=== PATIENT | male | born 1945 | race Caucasian/White ===

== ENCOUNTER 2017-11-05 12:37 | Outpatient (CLI) | payer MEDICARE, OTHER ==
--- NOTE | 2017-11-05 14:20 | XRAY Report ---
DATE OF SERVICE: 11/05/2017 TWO VIEW CHEST: 11/05/2017 CLINICAL INDICATION: Chronic cough. COMPARISON: 04/02/2013. FINDINGS: Frontal and lateral views of the chest demonstrate a normal cardiac silhouette. The lungs are hyperinflated, compatible with COPD. No focal consolidation, effusion, or pneumothorax is present. IMPRESSION: STABLE COPD. NO EVIDENCE OF ACUTE CARDIOPULMONARY DISEASE. TD: 11/05/2017 15:19
== END 2017-11-05 12:38 | disposition home or self-care (01) ==
LOC: DI 12:37
PROVIDERS: ATTEND Family Medicine
DX: J44.9 Chronic obstructive pulmonary disease, unspecified (principal)
CPT/HCPCS: 71046

== ENCOUNTER 2018-02-09 18:05 | Outpatient (CLI) | payer MEDICARE, OTHER | END 2018-02-09 18:06 | disposition short-term general hospital (02) | LOC: EMS 18:05 | PROVIDERS: ATTEND Surgery | DX: R53.1 Weakness (principal); R29.6 Repeated falls | CPT/HCPCS: A0425; A0429; A0888 ==

== ENCOUNTER 2018-02-10 00:23 | Inpatient (IN) | payer MEDICARE, OTHER ==
[2018-02-10] MEDS ORDERED: ACETAMINOPHEN 325 MG TABLET PO PRN (05:35)
[2018-02-10] MEDS ORDERED: ONDANSETRON 4 MG/2 ML VIAL IVP PRN (05:35)
[2018-02-10] MEDS ORDERED: ZOLPIDEM 5 MG TABLET PO PRN (05:35)
[2018-02-10] MEDS ORDERED: SODIUM CHLORIDE FLUSH 0.9% 10 ML SYRINGE IVP PRN (05:35)
[2018-02-10] MEDS: LACTATED RINGERS 1,000 ML IV SCH ×2 (06:16→13:23)
--- NOTE | 2018-02-10 07:23 | HISTORY & PHYSICAL EXAMINATION ---
DATE OF SERVICE: 02/10/2018 Physician: Jaylyn Fontana MD CHIEF COMPLAINT: Dehydration. SOURCE OF HISTORY: Per ER record, available medical records and interviewing patient. HISTORY OF PRESENT ILLNESS: Patient is a 72-year-old, white male who could not provide much history when I interviewed him. He seemed to be knowledgeable about past events or particular issues, but overall he was a poor historian and did not remember much regarding recent events. In particular, he told me that the date was January 2016. His age, he mentioned was 71 years old, instead of 72. He could not tell me about his daily routine such as a simple question, what was his last meal or when does he go to bed. In any case, as much as he reported, his takes care of him, although he was not sure why the needs to give him assistance. The left home several days ago to visit her family members and, during this time, neighbors were checking on patient. Per the ER provider, Dr. Selin Pizano' s report, neighbors called the ambulance and patient was taken to [facility] after he was found down in his home, being on the floor for a prolonged period of time. No further history was available. Patient himself told me that he got "dehydrated." He could not tell me why he did not drink or did not eat. He did not remember suffering any falls or injuries; however, he had multiple bruises. On admission, he appeared pleasantly confused. There were some issues such as history of leukemia, which he could have a reasonable conversation about, and he also knew the name of his primary care physician. He seemed to be remembering past events more than recent history. Upon presentation to [facility] ER, patient was found with stable vital signs, slightly tachycardic with heart rate between 90 and 100, blood pressure was 130/70, temperature 98 Fahrenheit, respiratory rate 20, oxygen saturation 98% on room air. ER workup included CT scan of the brain, which was negative; x-rays of chest and pelvis, which did not show a fracture or acute abnormality. EKG showed sinus rhythm. Laboratory showed rhabdomyolysis with creatine kinase of 6300. Acute kidney injury with BUN of 24, creatinine 1.5, potassium was 5.3, sodium was 139. White blood cell count was 15. Notably, patient has history of CLL and this is actually lower than his baseline. [facility] did not have bed availability. Therefore, patient was transferred to our hospital. PAST MEDICAL HISTORY 1. History of CLL, diagnosed in 2003. Since then stable, [facility]. 2. History of prostate cancer, followed by the oncologist, Dr. Greene, on Casodex, status post prostate seed implant. 3. Depression/anxiety. 4. History of melanoma, status post excision. 5. Cataracts. OUTPATIENT MEDICATIONS: Included vitamin supplements, Casodex and Xanax. Please note that patient is getting admitted overnight and medication reconciliation is not yet available. FAMILY HISTORY: Patient reports his father of a motor vehicle accident. His mother had hip fracture and never recovered. SOCIAL HISTORY: Patient does not smoke, quit a few years ago. 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 He is a nonsmoker. In previous medical record, it is documented that he drinks a glass of wine nightly. Patient reports ambulating without assistive device. Primary care physician is Dr. Manjit Hampton. ER workup reviewed per [facility] record. REVIEW OF SYMPTOMS: Please see pertinent positives listed above at history of present illness. Patient himself denied all complaints. In particular, he did not report nausea , vomiting, diarrhea, fever, or abdominal pain. He was forgetful. I completed a 12-point review. There was no complaint. PHYSICAL EXAMINATION VITAL SIGNS: Please see listed above at history of present illness. GENERAL: Patient is a well-developed, elderly male, who was not in distress. MUSCULOSKELETAL: Bruises on the right knee and on the left shoulder, also on the left elbow. SKIN: No jaundice. No pallor. Dry skin. LYMPHATIC: No lymphedema. CARDIOVASCULAR: S1, S2. Regular. No pathologic murmur. RESPIRATORY: Clear to auscultation without wheezes or crackles. NEUROLOGIC: Patient was alert, appeared slightly confused, had ataxia on the upper extremities. Face was symmetric. Tongue protruded to the midline. Patient moved all 4 extremities. There was no obvious sensory or motor deficit. PSYCHIATRIC: Cooperative. No agitation or lethargy. ABDOMEN: Soft, benign, nontender. Bowel tones active. ASSESSMENT AND PLAN 1. Encephalopathy, could be acute in the setting of metabolic abnormality such as dehydration versus patient could have underlying dementia. CT scan of the brain ruled out cerebrovascular accident. When patient arrived, I added urinalysis and toxicology screen, which studies are pending. 2. Rhabdomyolysis, found down. Patient likely suffered fall and could not get up from the floor. Not much history available. For this problem, he is getting IV hydration. We will check laboratories and provide supportive care. 3. Acute kidney injury with mild hyperkalemia and hyponatremia. This is in the setting of low oral intake, dehydration. Patient likely stayed down on the floor for a prolonged period of time. 4. Leukocytosis with history of CLL. White blood cell count around the baseline. 5. History of prostate cancer, on Casodex. PLAN AND ORDERS 1. Patient is getting admitted as an inpatient. I expect at least 2 days' hospital stay. During the daytime, we will try to get more information regarding this patient' s baseline from his . I am not sure how much alcohol he drinks, whether he could have any trouble with withdrawing from alcohol. It is notable that he takes benzodiazepine; therefore , if he misused or mismanaged his medication, then he could also develop benzodiazepine withdrawal or overdose. If he has dementia, then without his being home, he likely did not function well and that could also be the reason for this patient's presentation. In any case, regarding his baseline, we will get more information from his . Will continue supportive care, DVT prophylaxis, IV hydration, monitoring laboratories. I will order telemetry to make sure there was no cardiac arrhythmia. Physical therapy, occupational therapy evaluation. 2. Awaiting medication reconciliation. 3. Additional workup ordered, which included urinalysis, toxicology screen. Notably, troponin was checked. Prior to transfer, it was 0.02. EKG was normal; therefore, acute cardiac event can be ruled out. 4. CODE STATUS: I cannot determine code status as patient is not able to discuss. ATTESTATION: I certify that this patient will need to be hospitalized for more than 2 days, given his acute medical problems, which include encephalopathy and rhabdomyolysis. The expectation is that he stays hospitalized for about 48 hours and he gets discharged or transferred to another facility within 96 hours. TD: 02/10/2018 07:22 URPA
[2018-02-10] MEDS: POLYETHYLENE GLYCOL 3350 17 GM PACKET PO SCH (07:28)
[2018-02-10] MEDS: SODIUM CHLORIDE FLUSH 0.9% 10 ML SYRINGE IVP SCH ×2 (07:28→16:17)
--- NOTE | 2018-02-10 07:58 | PROVIDER PROGRESS NOTE ---
Subjective - Prog Note Date Prog Note Date: 02/10/18 Prog Note Time: 07:57 - Subjective Pt reports feeling: No change Subjective: The patient has no complaints of body aches, headaches, dizziness, chest pain, N /V or a new cough. He states that he has very low energy, feels tired, and has no appetite. He cannot recall the last time that he urinated. Current Medications - Current Medications Current Medications: Active Medications Acetaminophen (Tylenol) 650 mg PO Q4HR PRN PRN Reason: Pain 1 to 4 Enoxaparin Sodium (Lovenox) 40 mg SUBQ DAILY [facility] Sodium Chloride (Normal Saline 0.9%) 1,000 mls @ 200 mls/hr IV .Q5H SHAYNE Ceftriaxone Sodium 1 gm/ (Sodium Chloride) 100 mls @ 200 mls/hr IV DAILY [facility] Lidocaine HCl (Xylocaine Uro-Jet 2%) 2.5 ml UR Q2H PRN PRN Reason: PAIN Metoprolol Tartrate (Lopressor) 25 mg PO BID [facility] Ondansetron HCl (Zofran Inj) 4 mg IVP Q6HR PRN PRN Reason: Nausea / Vomiting Polyethylene Glycol (Miralax) 17 gm PO DAILY [facility] Last Admin: 02/10/18 07:28 Dose: Not Given Sodium Chloride (Normal Saline Flush 0.9%) 10 ml IVP PRN PRN PRN Reason: NEEDED PER PROVIDER ORDERS Last Admin: 02/10/18 06:17 Dose: 10 ml Sodium Chloride (Normal Saline Flush 0.9%) 10 ml IVP 0100,0900,1700 [facility] Last Admin: 02/10/18 07:28 Dose: Not Given Zolpidem Tartrate (Ambien) 5 mg PO QPM PRN PRN Reason: Insomnia ALPRAZolam [Alprazolam] 0.5 mg PO BID PRN 02/10/18 Citalopram Hydrobromide [Citalopram HBr] 20 mg PO DAILY 02/10/18 Losartan Potassium [Losartan Potassium] 50 mg PO DAILY 02/10/18 Objective - Vital Signs/Intake & Output Reviewed Vital Signs: Yes Vital Signs: Vital Signs x48h Temp Pulse Resp BP Pulse Ox 02/10/18 06:22 36.4 C L 91 20 155/74 H 99 Intake & Output: Intake & Output 02/07/18 02/08/18 02/09/18 02/10/18 23:59 23:59 23:59 23:59 Intake Total 83.333 Output Total 100 Balance -16.667 - Objective General Appearance: positive: Alert, Moderate distress Eyes Bilateral: positive: Normal inspection Eyes: OU Scleral icterus ENT: positive: ENT inspection nml, Pharyngeal erythema, Dry mucous membranes Neck: positive: Nml inspection, No JVD, Trachea midline, Stiff neck Respiratory: positive: Chest non-tender, Wheezes, Rhonchi Cardiovascular: positive: Regular rate & rhythm, Tachycardia, Systolic murmur, Decreased pulse(s) Peripheral Pulses: 1+ Radial (R), 1+ Radial (L) Abdomen: positive: Non-tender, Nml bowel sounds, Other (rounded, soft) Back: positive: Nml inspection Skin: positive: No rash, Warm, Dry, Diaphoresis, Pallor Extremities: positive: Non-tender, Pedal edema, Joint swelling, Other (weakness , reflexes are reduced.) Neurologic/Psychiatric: positive: Disoriented to place, Disoriented to time, Weakness, Sensory loss, Slurred/abnml speech, Depressed mood/affect Reflexes: Bicep (R): 1+, Bicep (L): 1+ - Lab Results Fish Bones: 02/12/18 04:45 02/12/18 04:45 Other Labs: Lab Results x24hrs 02/10/18 Range/Units 05:32 Total Creatine Kinase 3171 H* (22-269) IU/L - Diagnostic Imaging Diagnostic Imaging Results: positive: Prelim report reviewed, Final report reviewed ABX Reporting Has patient been on IV antibiotics over the past 48 hours?: No Assessment/Plan - Problem List (1) Altered mental status, unspecified Impression: The patient speaks in a sluggish manner and has trouble with the exact course of events leading to this admission. His remote and intermediate memory are intact. He has an unknown ETOH history, but is seen with moderate tremors. The patient is being treated for an elevated CK, so AMS may be expected. Plan: Continue to monitor. Qualifiers: Altered mental status type: transient alteration of awareness Qualified Code(s): R40.4 - Transient alteration of awareness (2) Rhabdomyolysis Impression: The patient was noted to have an elevated CK at the Located within [facility] around ~ 6300. Soon after admission to our hospital, it was already reduced to 3000. He has gotten LR IV fluids, that were changed to normal saline based on labs. Plan: Monitor labs, CK and kidney function. Insert mattson for accurate I/O, and monitor VS, mental status changes. Qualifiers: Encounter type: initial encounter (3) ANNETTA (acute kidney injury) Impression: The patient has an unknown baseline creatinine, but upon admission to [place], it was elevated at 1.5. Upon admission to this hospital, this was improved at 1.3. Plan: Insert indwelling mattson to monitor accurate I/O, monitor labs and treat rhabdomyolsis. (4) CLL (chronic lymphocytic leukemia) Impression: The patient has a long history of CLL and is monitored by his PCP. It is considered to be in remission. He has a chronically elevated WBC count. Upon admission the count is ~17,000, Plan: Continue to monitor. (5) Aortic stenosis, mild Impression: per preliminary echocardiogram report, the patient has AO. The patient denies a prior knowledge of this. A faint/distant heart murmur can be appreciated upon exam. The patient needs to have a controlled heart rate due to this finding, so metoprolol PO BID-immediate acting was started today. Plan: Keep heart rate controlled with beta [place], monitor on telemetry x 24 more hours.
[2018-02-10 08:06] LABS: MUDS CUTOFF CONCENTRATIONS CUTOFF CONC BELOW:
[2018-02-10 08:13] LABS: GLUCOSE, URINE (UA) NEGATIVE (NEGATIVE); KETONES,URINE (UA) 40 mg/dL (NEGATIVE); LEUKOCYTE ESTERASE, URINE NEGATIVE (NEGATIVE); NITRITE,URINE POSITIVE (NEGATIVE); OCCULT BLOOD,URINE MODERATE (NEGATIVE); PH,URINE 5.5 PH (5.0-7.5); PROTEIN,URINE 30 mg/dL (NEGATIVE); UROBILINOGEN,URINE 0.2 (NORMAL) E.U./dL (NORMAL)
[2018-02-10 08:21] LABS: BILIRUBIN,URINE NEGATIVE (NEGATIVE); CLARITY,URINE CLOUDY (CLEAR); ICTOTEST,URINE NEGATIVE
[2018-02-10 08:22] LABS: BACTERIA,URINE Many /HPF (None Seen); RBC,URINE 0-5 /HPF (0-5); SQUAMOUS EPITHELIAL CELL,UR FEW Squamous (<= Few)
[2018-02-10 08:24] LABS: AMPHETAMINE SCREEN,URINE NEGATIVE (NEGATIVE); BENZODIAZEPINES SCREEN, URINE POSITIVE (NEGATIVE); COCAINE SCREEN URINE NEGATIVE (NEGATIVE); METHADONE SCREEN, URINE NEGATIVE (NEGATIVE); METHAMPHETAMINES SCREEN, URINE NEGATIVE (NEGATIVE); OPIATE SCREEN, URINE NEGATIVE (NEGATIVE); OXYCODONE SCREEN, URINE NEGATIVE (NEGATIVE); PROPOXYPHENE SCREEN, URINE NEGATIVE (NEGATIVE); TRICYCLIC ANTIDEPRESSANT,URINE NEGATIVE (NEGATIVE)
[2018-02-10 08:25] LABS: BASOPHILS % (AUTO) 0.4 %; EOSINOPHILS % (AUTO) 0.1 %; HGB - HEMOGLOBIN 12.7 g/dL (14.0-18.0); LYMPHOCYTES # (AUTO) 5.8 10^3/uL (1.5-3.5); LYMPHOCYTES % (AUTO) 49.1 %; MEAN CORPUSCULAR HEMOGLOBIN 37.4 pg (27.0-31.0); MEAN CORPUSCULAR HGB CONC 33.9 g/dL (32.0-36.0); MEAN CORPUSCULAR VOLUME 110.3 fL (80.0-94.0); MEAN PLATELET VOLUME 8.2 fL (7.4-11.4); MONOCYTES # (AUTO) 0.7 10^3/uL (0.0-1.0); MONOCYTES % (AUTO) 6.3 %; NEUTROPHILS # (AUTO) 5.2 10^3/uL (1.5-6.6); NEUTROPHILS % (AUTO) 44.1 %; PLT - PLATELET COUNT 141 10^3/uL (130-450); RED BLOOD COUNT 3.41 10^6/uL (4.70-6.10); WHITE BLOOD COUNT 11.8 x10^3/uL (4.8-10.8)
[2018-02-10 08:46] LABS: ALBUMIN 3.3 g/dL (3.2-5.5); ALBUMIN/GLOBULIN RATIO 1.3 (1.0-2.2); BILIRUBIN,TOTAL 1.5 mg/dL (0.2-1.0); CALCIUM 8.3 mg/dL (8.5-10.3); CREATININE 1.4 mg/dL (0.6-1.2); RBC MORPHOLOGY (MULTIPLE) 2+ ANISOCYTOSIS (NORMAL); TOTAL PROTEIN 5.8 g/dL (6.7-8.2)
[2018-02-10] MEDS ORDERED: HEPARIN 5,000 UNIT/ML VIAL SUBQ SCH (09:00)
[2018-02-10] MEDS ORDERED: LIDOCAINE 2% URO-JET 5 ML SYRINGE UR PRN (15:29)
[2018-02-10] MEDS ORDERED: cefTRIAXone 1 GM in SODIUM CHLORIDE 0.9% MINIBAG 100 ML IV SCH (16:00)
[2018-02-10] MEDS: SODIUM CHLORIDE 0.9% 1,000 ML IV SCH ×2 (16:10→21:53)
[2018-02-10] MEDS: METOPROLOL TARTRATE 25 MG TABLET PO SCH ×2 (16:13→20:57)
[2018-02-10] MEDS: ENOXAPARIN 40 MG/0.4 ML SYRINGE SUBQ SCH (16:14)
[2018-02-10 17:52] LABS: CALCIUM 8.3 mg/dL (8.5-10.3); CREATININE 1.2 mg/dL (0.6-1.2); CRP - C-REACTIVE PROTEIN 4.6 mg/dL (0-1.0); MAGNESIUM 1.6 mg/dL (1.7-2.8); URIC ACID 6.8 mg/dL (2.6-7.2)
[2018-02-11] MEDS: SODIUM CHLORIDE 0.9% 1,000 ML IV SCH ×5 (02:46→22:00)
[2018-02-11 05:52] LABS: BASOPHILS % (AUTO) 0.3 %; EOSINOPHILS % (AUTO) 0.2 %; HGB - HEMOGLOBIN 12.2 g/dL (14.0-18.0); LYMPHOCYTES # (AUTO) 4.8 10^3/uL (1.5-3.5); LYMPHOCYTES % (AUTO) 42.1 %; MEAN CORPUSCULAR HEMOGLOBIN 36.6 pg (27.0-31.0); MEAN CORPUSCULAR HGB CONC 32.8 g/dL (32.0-36.0); MEAN CORPUSCULAR VOLUME 111.5 fL (80.0-94.0); MEAN PLATELET VOLUME 8.3 fL (7.4-11.4); MONOCYTES # (AUTO) 0.7 10^3/uL (0.0-1.0); MONOCYTES % (AUTO) 6.2 %; NEUTROPHILS # (AUTO) 5.9 10^3/uL (1.5-6.6); NEUTROPHILS % (AUTO) 51.2 %; PLT - PLATELET COUNT 131 10^3/uL (130-450); RED BLOOD COUNT 3.32 10^6/uL (4.70-6.10); RED CELL DISTRIBUTION WIDTH 13.8 % (12.0-15.0); WHITE BLOOD COUNT 11.5 x10^3/uL (4.8-10.8)
[2018-02-11 06:15] LABS: ALBUMIN 3.1 g/dL (3.2-5.5); ALBUMIN/GLOBULIN RATIO 1.2 (1.0-2.2); BILIRUBIN,TOTAL 1.5 mg/dL (0.2-1.0); CREATININE 1.1 mg/dL (0.6-1.2); CRP - C-REACTIVE PROTEIN 2.8 mg/dL (0-1.0); MAGNESIUM 1.4 mg/dL (1.7-2.8); TOTAL PROTEIN 5.6 g/dL (6.7-8.2)
[2018-02-11 06:22] LABS: PLATELET ESTIMATE, MANUAL NORMAL (130-450,000) (NORMAL); PLATELET MORPHOLOGY NORMAL APPEARANCE (NORMAL); RBC MORPHOLOGY (MULTIPLE) NORMAL APPEARANCE (NORMAL)
[2018-02-11] MEDS: SODIUM CHLORIDE FLUSH 0.9% 10 ML SYRINGE IVP SCH ×3 (06:54→16:32)
[2018-02-11] MEDS: SACCHAROMYCES BOULARDII 250 MG CAPSULE PO SCH ×2 (06:59→16:49)
[2018-02-11] MEDS: POLYETHYLENE GLYCOL 3350 17 GM PACKET PO SCH (07:15)
[2018-02-11] MEDS: METOPROLOL TARTRATE 25 MG TABLET PO SCH ×2 (10:33→20:43)
[2018-02-11] MEDS: ENOXAPARIN 40 MG/0.4 ML SYRINGE SUBQ SCH (10:34)
[2018-02-11] MEDS ORDERED: DIPHENOX/ATROPINE 2.5/0.025 MG TABLET PO PRN (12:17)
--- NOTE | 2018-02-11 12:49 | PROVIDER PROGRESS NOTE ---
Subjective - Prog Note Date Prog Note Date: 02/11/18 Prog Note Time: 12:00 - Subjective Pt reports feeling: Improved Subjective: Johnathon complains of loose stools, but is grateful to have the mattson cath. He denies SOB, chest pain, N/V or a new cough. He states that his will be coming in for a visit today. Objective - Vital Signs/Intake & Output Reviewed Vital Signs: Yes Vital Signs: Vital Signs x48h Temp Pulse Resp BP BP Pulse Ox 02/11/18 10:33 150/74 H 02/11/18 10:29 36.7 C 65 18 150/74 H 97 02/11/18 05:00 36.2 C L 63 18 139/71 H 95 Intake & Output: Intake & Output 02/08/18 02/09/18 02/10/18 02/11/18 23:59 23:59 23:59 23:59 Intake Total 3762.583 1946.666 Output Total 650 700 Balance 3112.583 1246.666 - Objective General Appearance: positive: No acute distress, Alert Eyes Bilateral: positive: Normal inspection, PERRL, No scleral icterus Eyes: OU Conjunctivae pale ENT: positive: ENT inspection nml, Pharyngeal erythema, Dry mucous membranes Neck: positive: Nml inspection, Thyroid nml, No JVD, Trachea midline Respiratory: positive: Chest non-tender, No respiratory distress, Breath sounds nml, Other (scattered crackles without hypoxia.) Cardiovascular: positive: Regular rate & rhythm, No gallop, Systolic murmur, Decreased pulse(s) Peripheral Pulses: 2+ Radial (R), 2+ Radial (L) Abdomen: positive: Non-tender, No organomegaly, Abnml bowel sounds (hyperactive) , Other (soft, rounded) Back: positive: Nml inspection Skin: positive: No rash, Warm, Dry, Other (multiple raised lesions-moles.) Extremities: positive: Non-tender, Pedal edema (chronic BLE), Joint swelling Neurologic/Psychiatric: positive: Disoriented to time, Weakness, Sensory loss, Slurred/abnml speech, Depressed mood/affect, Other (mild confusion about current state of health.) Reflexes: Bicep (R): 2+ (equal strength, profound weakness), Bicep (L): 2+ - Lab Results Fish Bones: 02/12/18 04:45 02/12/18 04:45 Other Labs: Lab Results x24hrs 02/11/18 02/11/18 02/11/18 Range/Units 05:10 05:10 05:10 WBC 11.5 H (4.8-10.8) x10^3/uL RBC 3.32 L (4.70-6.10) 10^6/uL Hgb 12.2 L (14.0-18.0) g/dL Hct 37.1 L (42.0-52.0) % MCV 111.5 H (80.0-94.0) fL MCH 36.6 H (27.0-31.0) pg MCHC 32.8 (32.0-36.0) g/dL RDW 13.8 (12.0-15.0) % Plt Count 131 (130-450) 10^3/uL MPV 8.3 (7.4-11.4) fL Neut # 5.9 (1.5-6.6) 10^3/uL Lymph # 4.8 H (1.5-3.5) 10^3/uL [place] # 0.7 (0.0-1.0) 10^3/uL Eos # 0.0 (0.0-0.7) 10^3/uL Baso # 0.0 (0.0-0.1) 10^3/uL Absolute Nucleated RBC 0.01 x10^3/uL Nucleated RBC % 0.1 /100WBC Manual Slide Review Indicated Platelet Estimate NORMAL (130-450,000) (NORMAL) Platelet Morphology NORMAL APPEARANCE (NORMAL) RBC Morph Micro Appear NORMAL APPEARANCE (NORMAL) ESR 17 (0-20) mm/Hr Sodium 133 L (135-145) mmol/L Potassium 3.9 (3.5-5.0) mmol/L Chloride 98 L (101-111) mmol/L Carbon Dioxide 25 (21-32) mmol/L Anion Gap 10.0 (6-13) BUN 26 H (6-20) mg/dL Creatinine 1.1 (0.6-1.2) mg/dL Estimated GFR (MDRD) 65 L (>89) Glucose 106 H (70-100) mg/dL Lactic Acid (0.5-2.2) mmol/L Uric Acid (2.6-7.2) mg/dL Calcium 8.0 L (8.5-10.3) mg/dL Magnesium 1.4 L (1.7-2.8) mg/dL Total Bilirubin 1.5 H (0.2-1.0) mg/dL GGT (8-55) IU/L AST 113 H (10-42) IU/L ALT 53 (10-60) IU/L Alkaline Phosphatase 43 (42-121) IU/L Ammonia (7-35) umol/L Lactate Dehydrogenase (91-225) IU/L Total Creatine Kinase 1638 H* (22-269) IU/L C-Reactive Protein 2.8 H (0-1.0) mg/dL Total Protein 5.6 L (6.7-8.2) g/dL Albumin 3.1 L (3.2-5.5) g/dL Globulin 2.5 (2.1-4.2) g/dL Albumin/Globulin Ratio 1.2 (1.0-2.2) TSH (0.34-5.60) uIU/mL 02/10/18 02/10/18 02/10/18 Range/Units 17:12 17:12 17:12 WBC (4.8-10.8) x10^3/uL RBC (4.70-6.10) 10^6/uL Hgb (14.0-18.0) g/dL Hct (42.0-52.0) % MCV (80.0-94.0) fL MCH (27.0-31.0) pg MCHC (32.0-36.0) g/dL RDW (12.0-15.0) % Plt Count (130-450) 10^3/uL MPV (7.4-11.4) fL Neut # (1.5-6.6) 10^3/uL Lymph # (1.5-3.5) 10^3/uL [place] # (0.0-1.0) 10^3/uL Eos # (0.0-0.7) 10^3/uL Baso # (0.0-0.1) 10^3/uL Absolute Nucleated RBC x10^3/uL Nucleated RBC % /100WBC Manual Slide Review Platelet Estimate (NORMAL) Platelet Morphology (NORMAL) RBC Morph Micro Appear (NORMAL) ESR (0-20) mm/Hr Sodium (135-145) mmol/L Potassium (3.5-5.0) mmol/L Chloride (101-111) mmol/L Carbon Dioxide (21-32) mmol/L Anion Gap (6-13) BUN (6-20) mg/dL Creatinine (0.6-1.2) mg/dL Estimated GFR (MDRD) (>89) Glucose (70-100) mg/dL Lactic Acid (0.5-2.2) mmol/L Uric Acid (2.6-7.2) mg/dL Calcium (8.5-10.3) mg/dL Magnesium (1.7-2.8) mg/dL Total Bilirubin (0.2-1.0) mg/dL GGT (8-55) IU/L AST (10-42) IU/L ALT (10-60) IU/L Alkaline Phosphatase (42-121) IU/L Ammonia 11.0 (7-35) umol/L Lactate Dehydrogenase 185 (91-225) IU/L Total Creatine Kinase (22-269) IU/L C-Reactive Protein (0-1.0) mg/dL Total Protein (6.7-8.2) g/dL Albumin (3.2-5.5) g/dL Globulin (2.1-4.2) g/dL Albumin/Globulin Ratio (1.0-2.2) TSH 2.42 (0.34-5.60) uIU/mL 02/10/18 02/10/18 02/10/18 Range/Units 17:12 17:12 17:12 WBC (4.8-10.8) x10^3/uL RBC (4.70-6.10) 10^6/uL Hgb (14.0-18.0) g/dL Hct (42.0-52.0) % MCV (80.0-94.0) fL MCH (27.0-31.0) pg MCHC (32.0-36.0) g/dL RDW (12.0-15.0) % Plt Count (130-450) 10^3/uL MPV (7.4-11.4) fL Neut # (1.5-6.6) 10^3/uL Lymph # (1.5-3.5) 10^3/uL [place] # (0.0-1.0) 10^3/uL Eos # (0.0-0.7) 10^3/uL Baso # (0.0-0.1) 10^3/uL Absolute Nucleated RBC x10^3/uL Nucleated RBC % /100WBC Manual Slide Review Platelet Estimate (NORMAL) Platelet Morphology (NORMAL) RBC Morph Micro Appear (NORMAL) ESR 17 (0-20) mm/Hr Sodium 130 L (135-145) mmol/L Potassium 4.1 (3.5-5.0) mmol/L Chloride 96 L (101-111) mmol/L Carbon Dioxide 24 (21-32) mmol/L Anion Gap 10.0 (6-13) BUN 31 H (6-20) mg/dL Creatinine 1.2 (0.6-1.2) mg/dL Estimated GFR (MDRD) 59 L (>89) Glucose 100 (70-100) mg/dL Lactic Acid 1.0 (0.5-2.2) mmol/L Uric Acid 6.8 (2.6-7.2) mg/dL Calcium 8.3 L (8.5-10.3) mg/dL Magnesium 1.6 L (1.7-2.8) mg/dL Total Bilirubin (0.2-1.0) mg/dL GGT 73 H (8-55) IU/L AST (10-42) IU/L ALT (10-60) IU/L Alkaline Phosphatase 45 (42-121) IU/L Ammonia (7-35) umol/L Lactate Dehydrogenase (91-225) IU/L Total Creatine Kinase 1899 H* (22-269) IU/L C-Reactive Protein 4.6 H (0-1.0) mg/dL Total Protein (6.7-8.2) g/dL Albumin (3.2-5.5) g/dL Globulin (2.1-4.2) g/dL Albumin/Globulin Ratio (1.0-2.2) TSH (0.34-5.60) uIU/mL ABX Reporting Has patient been on IV antibiotics over the past 48 hours?: Yes Assessment/Plan - Problem List (1) Altered mental status, unspecified Impression: The patient continues to have a mild slur while speaking and sometimes does not answer when being asked a question. He has an unknown ETOH history, and continues to demonstrate a mild to moderate tremor in his BUEs. His AMS is expected to slightly improve as his medical condition does. Plan: Continue to monitor. Qualifiers: Altered mental status type: transient alteration of awareness Qualified Code(s): R40.4 - Transient alteration of awareness (2) Rhabdomyolysis Impression: The patient was a direct transfer from [facility] and was noted to have an elevated CK upon admission. Today his CK was 1638 and continues to trend down man[place]. He has been getting normal saline @ 200ml/hour, that was reduced to 150ml /hour in light of his recent echo results. Plan: Monitor labs, CK and kidney function. Continue indwelling mattson for accurate I/O, and monitor VS, mental status changes. Qualifiers: Encounter type: initial encounter (3) ANNETTA (acute kidney injury) Impression: The patient had an elevated creatinine of 1.3 upon admission that is improved to a normal value of 1.1 today. The patient is at risk for ANNETTA during this acute illness. Plan: Continue indwelling mattson to monitor accurate I/Os, monitor labs and treat rhabdomyolsis using NS IV. (4) CLL (chronic lymphocytic leukemia) Impression: The patient has a long history of CLL and is monitored by his PCP. It is considered to be in remission. He has a chronically elevated WBC count. Upon admission the count was ~17,000, and now down to 11.5. I suspect that he is close to his baseline given CLL. Plan: Continue to monitor. (5) Aortic stenosis, mild Impression: per preliminary echocardiogram report, the patient has AO. The patient denies a prior knowledge of this. A faint/distant heart murmur can be appreciated upon exam. The patient needs to have a controlled heart rate due to this finding, so metoprolol PO BID-immediate acting was started today. Plan: Keep heart rate controlled with beta [place], monitor on telemetry x 24 more hours. (6) Fall Impression: The patient's confirms at least 2 falls with injury and believes that he blacked out, rather than he just lost his balance. On this admission we have learned of a mild-moderate aortic stenosis that may be the culprit of the non- mechanical falls. Prior to this admission the patient was reportedly "carried to bed" by neighbors after he was found on the floor. The patient's confirms that he drinks alcohol, which may lead to volume loss. A preliminary urine sample shows a UTI which may have also been a contributing factor. Now the patient has had at least 3 documented falls with injury! Plan: Consult social work to arrange for an alternative placement due to these falls. (7) UTI (urinary tract infection) Impression: The patient was found to have +nitrites, many bacteria that indicate a UTI. IV antibiotics were started soon after admission and continue with the IVFs. Plan: Continue IV antibiotics. Qualifiers: Hematuria presence: without hematuria
[2018-02-11] MEDS ORDERED: PIPERACILLIN/TAZOBACTAM 3.375 GM in SODIUM CHLORIDE 0.9% MINIBAG 100 ML IV SCH (13:00)
[2018-02-11] MEDS: CITALOPRAM 10 MG TABLET PO SCH (14:24)
[2018-02-11] MEDS: PSYLLIUM PACKET PO SCH (14:24)
[2018-02-11] MEDS: LOSARTAN 50 MG TABLET PO SCH (14:25)
[2018-02-11] MEDS ORDERED: MAGNESIUM SULFATE 2 GRAM 2 GM/50 ML BAG IV ONE (16:22)
[2018-02-11] MEDS: MAGNESIUM OXIDE 400 MG TABLET PO SCH ×2 (16:50→20:32)
[2018-02-11] MEDS: LORazepam 0.5 MG TABLET PO PRN (17:54)
--- NOTE | 2018-02-11 19:24 | PROVIDER PROGRESS NOTE ---
Subjective - Prog Note Date Prog Note Date: 02/12/18 Prog Note Time: 12:00 - Subjective Pt reports feeling: Improved Subjective: The patient states that his bowels have slowed down and is agreeable to one more day of stay. He requests that his mattson be taken out. He denies SOB, chest pain, N/V or a new cough. Current Medications - Current Medications Current Medications: Active Medications Acetaminophen (Tylenol) 650 mg PO Q4HR PRN PRN Reason: Pain 1 to 4 Citalopram Hydrobromide (Celexa) 20 mg PO DAILY [facility] Last Admin: 02/12/18 08:18 Dose: 20 mg Diphenoxylate HCl/Atropine (Lomotil) 2 tab PO QID PRN PRN Reason: Diarrhea Last Admin: 02/11/18 14:24 Dose: 2 tab Enoxaparin Sodium (Lovenox) 40 mg SUBQ DAILY [facility] Last Admin: 02/12/18 08:19 Dose: 40 mg Piperacillin Sod/Tazobactam (Sod 3.375 gm/ Sodium Chloride) 100 mls @ 200 mls/ hr IV Q6H [facility] Last Infusion: 02/12/18 14:20 Dose: Infused Lidocaine HCl (Xylocaine Uro-Jet 2%) 2.5 ml UR Q2H PRN PRN Reason: PAIN Last Admin: 02/10/18 16:16 Dose: 2.5 ml Lorazepam (Ativan) 0.5 mg PO Q4H PRN PRN Reason: Anxiety Last Admin: 02/12/18 16:18 Dose: 0.5 mg Losartan Potassium (Cozaar) 50 mg PO DAILY [facility] Last Admin: 02/12/18 08:18 Dose: 50 mg Magnesium Oxide (Mag Ox) 400 mg PO BID [facility] Last Admin: 02/12/18 08:22 Dose: 400 mg Metoprolol Tartrate (Lopressor) 25 mg PO BID [facility] Last Admin: 02/12/18 08:18 Dose: 25 mg Ondansetron HCl (Zofran Inj) 4 mg IVP Q6HR PRN PRN Reason: Nausea / Vomiting Polyethylene Glycol (Miralax) 17 gm PO DAILY [facility] Last Admin: 02/12/18 08:00 Dose: Not Given Psyllium Hydrophilic Mucilloid (Metamucil) 1 packet PO DAILY [facility] Last Admin: 02/12/18 08:20 Dose: Not Given Saccharomyces Boulardii (Florastor) 500 mg PO BIDWM [facility] Last Admin: 02/12/18 16:13 Dose: 500 mg Sodium Chloride (Normal Saline Flush 0.9%) 10 ml IVP PRN PRN PRN Reason: NEEDED PER PROVIDER ORDERS Last Admin: 02/10/18 06:17 Dose: 10 ml Sodium Chloride (Normal Saline Flush 0.9%) 10 ml IVP 0100,0900,1700 [facility] Last Admin: 02/12/18 15:43 Dose: Not Given Zolpidem Tartrate (Ambien) 5 mg PO QPM PRN PRN Reason: Insomnia ALPRAZolam [Alprazolam] 0.5 mg PO BID PRN 02/10/18 Citalopram Hydrobromide [Citalopram HBr] 20 mg PO DAILY 02/10/18 Losartan Potassium [Losartan Potassium] 50 mg PO DAILY 02/10/18 Objective - Vital Signs/Intake & Output Reviewed Vital Signs: Yes Vital Signs: Vital Signs x48h Temp Pulse Resp BP Pulse Ox 02/11/18 15:24 36.5 C 64 20 142/65 H 97 Intake & Output: Intake & Output 02/08/18 02/09/18 02/10/18 02/11/18 23:59 23:59 23:59 23:59 Intake Total 3762.583 3846.666 Output Total 650 700 Balance 3112.583 3146.666 - Objective General Appearance: positive: No acute distress, Alert Eyes Bilateral: positive: Normal inspection, PERRL Eyes: OU Conjunctivae pale ENT: positive: ENT inspection nml, Pharynx nml, Pharyngeal erythema, Dry mucous membranes Neck: positive: Nml inspection, Thyroid nml, No JVD, Trachea midline, Stiff neck Respiratory: positive: Chest non-tender, No respiratory distress, Wheezes, Other (scattered crackles) Cardiovascular: positive: Regular rate & rhythm, Systolic murmur, Decreased pulse(s) Peripheral Pulses: 1+ Radial (R), 1+ Radial (L) Abdomen: positive: Non-tender, No organomegaly, Nml bowel sounds, Other (rounded , soft) Back: positive: Nml inspection Skin: positive: No rash, Warm, Dry, Pallor Extremities: positive: Non-tender, Full ROM, Pedal edema (dependent, chronic BLE edema), Joint swelling Neurologic/Psychiatric: positive: Oriented x3, Weakness, Sensory loss, Slurred/ abnml speech (sluggish speech at times.), Depressed mood/affect Reflexes: Bicep (R): 2+, Bicep (L): 2+ - Lab Results Fish Bones: 02/13/18 04:35 02/13/18 04:35 Other Labs: Lab Results x24hrs 02/11/18 02/11/18 02/11/18 Range/Units 05:10 05:10 05:10 WBC 11.5 H (4.8-10.8) x10^3/uL RBC 3.32 L (4.70-6.10) 10^6/uL Hgb 12.2 L (14.0-18.0) g/dL Hct 37.1 L (42.0-52.0) % MCV 111.5 H (80.0-94.0) fL MCH 36.6 H (27.0-31.0) pg MCHC 32.8 (32.0-36.0) g/dL RDW 13.8 (12.0-15.0) % Plt Count 131 (130-450) 10^3/uL MPV 8.3 (7.4-11.4) fL Neut # 5.9 (1.5-6.6) 10^3/uL Lymph # 4.8 H (1.5-3.5) 10^3/uL [place] # 0.7 (0.0-1.0) 10^3/uL Eos # 0.0 (0.0-0.7) 10^3/uL Baso # 0.0 (0.0-0.1) 10^3/uL Absolute Nucleated RBC 0.01 x10^3/uL Nucleated RBC % 0.1 /100WBC Manual Slide Review Indicated Platelet Estimate NORMAL (130-450,000) (NORMAL) Platelet Morphology NORMAL APPEARANCE (NORMAL) RBC Morph Micro Appear NORMAL APPEARANCE (NORMAL) ESR 17 (0-20) mm/Hr Sodium 133 L (135-145) mmol/L Potassium 3.9 (3.5-5.0) mmol/L Chloride 98 L (101-111) mmol/L Carbon Dioxide 25 (21-32) mmol/L Anion Gap 10.0 (6-13) BUN 26 H (6-20) mg/dL Creatinine 1.1 (0.6-1.2) mg/dL Estimated GFR (MDRD) 65 L (>89) Glucose 106 H (70-100) mg/dL Calcium 8.0 L (8.5-10.3) mg/dL Magnesium 1.4 L (1.7-2.8) mg/dL Total Bilirubin 1.5 H (0.2-1.0) mg/dL AST 113 H (10-42) IU/L ALT 53 (10-60) IU/L Alkaline Phosphatase 43 (42-121) IU/L Total Creatine Kinase 1638 H* (22-269) IU/L C-Reactive Protein 2.8 H (0-1.0) mg/dL Total Protein 5.6 L (6.7-8.2) g/dL Albumin 3.1 L (3.2-5.5) g/dL Globulin 2.5 (2.1-4.2) g/dL Albumin/Globulin Ratio 1.2 (1.0-2.2) ABX Reporting Has patient been on IV antibiotics over the past 48 hours?: Yes Assessment/Plan - Problem List (1) Rhabdomyolysis Impression: The patient was a direct transfer from [facility] and was noted to have an elevated CK upon admission. Today his CK was 1638 and continues to trend down manning. He has been getting normal saline @ 200ml/hour, that was reduced to 150ml /hour in light of his recent echo results. Plan: Monitor labs, CK and kidney function. Continue indwelling mattson for accurate I/O, and monitor VS, mental status changes. Qualifiers: Encounter type: initial encounter (2) ANNETTA (acute kidney injury) Impression: The patient had an elevated creatinine of 1.3 upon admission that is improved to a normal value of 1.1 today. The patient is at risk for ANNETTA during this acute illness. Plan: Continue indwelling mattson to monitor accurate I/Os, monitor labs and treat rhabdomyolsis using NS IV. (3) CLL (chronic lymphocytic leukemia) Impression: The patient has a long history of CLL and is monitored by his PCP. It is considered to be in remission. He has a chronically elevated WBC count. Upon admission the count was ~17,000, and now down to 11.5. I suspect that he is close to his baseline given CLL. Plan: Continue to monitor. (4) Aortic stenosis, mild Impression: per preliminary echocardiogram report, the patient has AO. The patient denies a prior knowledge of this. A faint/distant heart murmur can be appreciated upon exam. The patient needs to have a controlled heart rate due to this finding, so metoprolol PO BID-immediate acting was started today. Plan: Keep heart rate controlled with beta [place], monitor on telemetry x 24 more hours. (5) Altered mental status, unspecified Impression: The patient continues to have a mild slur while speaking and sometimes does not answer when being asked a question. He has an unknown ETOH history, and continues to demonstrate a mild to moderate tremor in his BUEs. His AMS is expected to slightly improve as his medical condition does. Plan: Continue to monitor. Qualifiers: Altered mental status type: transient alteration of awareness Qualified Code(s): R40.4 - Transient alteration of awareness (6) Fall Impression: The patient's confirms at least 2 falls with injury and believes that he blacked out, rather than he just lost his balance. On this admission we have learned of a mild-moderate aortic stenosis that may be the culprit of the non- mechanical falls. Prior to this admission the patient was reportedly "carried to bed" by neighbors after he was found on the floor. The patient's confirms that he drinks alcohol, which may lead to volume loss. A preliminary urine sample shows a UTI which may have also been a contributing factor. Now the patient has had at least 3 documented falls with injury! Plan: Consult social work to arrange for an alternative placement due to these falls. (7) UTI (urinary tract infection) Impression: The patient was found to have +nitrites, many bacteria that indicate a UTI. IV antibiotics were started soon after admission and continue with the IVFs. Plan: Continue IV antibiotics. Qualifiers: Hematuria presence: without hematuria
[2018-02-11] MEDS: PIPERACILLIN/TAZOBACTAM 3.375 GM in SODIUM CHLORIDE 0.9% MINIBAG 100 ML IV SCH (20:31)
[2018-02-12] MEDS: SODIUM CHLORIDE FLUSH 0.9% 10 ML SYRINGE IVP SCH ×3 (01:42→15:43)
[2018-02-12] MEDS: PIPERACILLIN/TAZOBACTAM 3.375 GM in SODIUM CHLORIDE 0.9% MINIBAG 100 ML IV SCH ×4 (02:15→20:36)
[2018-02-12 05:10] LABS: BASOPHILS # (AUTO) 0.1 10^3/uL (0.0-0.1); BASOPHILS % (AUTO) 0.8 %; EOSINOPHILS # (AUTO) 0.1 10^3/uL (0.0-0.7); EOSINOPHILS % (AUTO) 0.7 %; HGB - HEMOGLOBIN 11.7 g/dL (14.0-18.0); LYMPHOCYTES # (AUTO) 4.9 10^3/uL (1.5-3.5); LYMPHOCYTES % (AUTO) 46.3 %; MEAN CORPUSCULAR HGB CONC 33.3 g/dL (32.0-36.0); MEAN CORPUSCULAR VOLUME 111.1 fL (80.0-94.0); MEAN PLATELET VOLUME 8.3 fL (7.4-11.4); MONOCYTES # (AUTO) 0.7 10^3/uL (0.0-1.0); MONOCYTES % (AUTO) 6.4 %; NEUTROPHILS # (AUTO) 4.9 10^3/uL (1.5-6.6); NEUTROPHILS % (AUTO) 45.8 %; PLT - PLATELET COUNT 135 10^3/uL (130-450); RED BLOOD COUNT 3.16 10^6/uL (4.70-6.10); RED CELL DISTRIBUTION WIDTH 13.8 % (12.0-15.0); WHITE BLOOD COUNT 10.6 x10^3/uL (4.8-10.8)
[2018-02-12 05:24] LABS: ALBUMIN/GLOBULIN RATIO 1.3 (1.0-2.2); BILIRUBIN,TOTAL 1.4 mg/dL (0.2-1.0); CREATININE 1.1 mg/dL (0.6-1.2); CRP - C-REACTIVE PROTEIN 1.8 mg/dL (0-1.0); MAGNESIUM 1.8 mg/dL (1.7-2.8); TOTAL PROTEIN 5.4 g/dL (6.7-8.2)
[2018-02-12] MEDS: SODIUM CHLORIDE 0.9% 1,000 ML IV SCH (06:17)
[2018-02-12] MEDS: LORazepam 0.5 MG TABLET PO PRN ×3 (06:55→20:35)
[2018-02-12] MEDS: POLYETHYLENE GLYCOL 3350 17 GM PACKET PO SCH (08:00)
[2018-02-12] MEDS: CITALOPRAM 10 MG TABLET PO SCH (08:18)
[2018-02-12] MEDS: METOPROLOL TARTRATE 25 MG TABLET PO SCH ×2 (08:18→20:35)
[2018-02-12] MEDS: SACCHAROMYCES BOULARDII 250 MG CAPSULE PO SCH ×2 (08:18→16:13)
[2018-02-12] MEDS: LOSARTAN 50 MG TABLET PO SCH (08:18)
[2018-02-12] MEDS: ENOXAPARIN 40 MG/0.4 ML SYRINGE SUBQ SCH (08:19)
[2018-02-12] MEDS: PSYLLIUM PACKET PO SCH (08:20)
[2018-02-12] MEDS: MAGNESIUM OXIDE 400 MG TABLET PO SCH ×2 (08:22→20:35)
[2018-02-13] MEDS: SODIUM CHLORIDE FLUSH 0.9% 10 ML SYRINGE IVP SCH ×2 (00:28→09:10)
[2018-02-13] MEDS: PIPERACILLIN/TAZOBACTAM 3.375 GM in SODIUM CHLORIDE 0.9% MINIBAG 100 ML IV SCH ×2 (02:52→08:18)
[2018-02-13 04:59] LABS: BASOPHILS # (AUTO) 0.1 10^3/uL (0.0-0.1); BASOPHILS % (AUTO) 0.8 %; EOSINOPHILS % (AUTO) 0.1 %; HGB - HEMOGLOBIN 12.4 g/dL (14.0-18.0); LYMPHOCYTES % (AUTO) 52.2 %; MEAN CORPUSCULAR HEMOGLOBIN 36.9 pg (27.0-31.0); MEAN CORPUSCULAR HGB CONC 32.9 g/dL (32.0-36.0); MEAN CORPUSCULAR VOLUME 112.1 fL (80.0-94.0); MEAN PLATELET VOLUME 8.2 fL (7.4-11.4); MONOCYTES # (AUTO) 0.6 10^3/uL (0.0-1.0); MONOCYTES % (AUTO) 5.6 %; NEUTROPHILS # (AUTO) 4.7 10^3/uL (1.5-6.6); NEUTROPHILS % (AUTO) 41.3 %; PLT - PLATELET COUNT 157 10^3/uL (130-450); RED BLOOD COUNT 3.37 10^6/uL (4.70-6.10); RED CELL DISTRIBUTION WIDTH 13.6 % (12.0-15.0); WHITE BLOOD COUNT 11.5 x10^3/uL (4.8-10.8)
[2018-02-13 05:09] LABS: ALBUMIN 3.2 g/dL (3.2-5.5); ALBUMIN/GLOBULIN RATIO 1.1 (1.0-2.2); BILIRUBIN,TOTAL 1.3 mg/dL (0.2-1.0); CALCIUM 8.4 mg/dL (8.5-10.3); CRP - C-REACTIVE PROTEIN 1.2 mg/dL (0-1.0); MAGNESIUM 1.7 mg/dL (1.7-2.8); TOTAL PROTEIN 6.2 g/dL (6.7-8.2)
[2018-02-13] MEDS: LORazepam 0.5 MG TABLET PO PRN (05:55)
[2018-02-13 08:15] VITALS: BP 171/98
[2018-02-13] MEDS: SACCHAROMYCES BOULARDII 250 MG CAPSULE PO SCH (08:17)
[2018-02-13] MEDS: LOSARTAN 50 MG TABLET PO SCH (08:18)
[2018-02-13] MEDS: CITALOPRAM 10 MG TABLET PO SCH (08:18)
[2018-02-13] MEDS: ENOXAPARIN 40 MG/0.4 ML SYRINGE SUBQ SCH (08:18)
[2018-02-13] MEDS: METOPROLOL TARTRATE 25 MG TABLET PO SCH (08:18)
[2018-02-13] MEDS: POLYETHYLENE GLYCOL 3350 17 GM PACKET PO SCH (08:19)
[2018-02-13] MEDS: MAGNESIUM OXIDE 400 MG TABLET PO SCH (08:19)
[2018-02-13] MEDS: PSYLLIUM PACKET PO SCH (11:31)
--- NOTE | 2018-02-13 13:18 | DISCHARGE SUMMARY ---
Discharge Summary Admit Date: 02/10/18 Discharge Date: 02/13/18 Discharging Provider: ILAN Huynh Primary Care Provider: Manjit Hampton Code Status: Attempt Resuscitation Condition at Discharge: Good Discharge Disposition: 01 Home, Self Care - DIAGNOSES Admission Diagnoses: Encephalopathy, unspecified (G93.40) Rhabdomyolysis (M62.82) ANNETTA (acute kidney injury) (N17.9) Fall (W19.XXXA) Discharge Diagnoses with Status of Each Condition: Rhabdomyolysis (M62.82)- improved, likely will resolve. Fall (W19.XXXA)- chronic, precautions taken. ANNETTA (acute kidney injury) (N17.9)- resolved. Aortic stenosis (I35.0)- new on this admission, recommend follow up echo in ~1 year. CLL (chronic lymphocytic leukemia) (C91.90)- chronic, stable. UTI (urinary tract infection) (N39.0)- new on this admission, treatment to continue. Pulmonary hypertension (I27.20)- new on this admission, Spironolactone prescribed. - HPI History of Present Illness: Johnathon Dumont is a 72-year old white male with a past medical history of CLL diagnosed in 2003, history of prostate cancer, status post prostate seed implant , depression, anxiety, melanoma, cataracts, hypertension, and dementia. The patient was brought in by EMS to [facility], and transferred here due to lack of inpatient beds after a fall at home. He notes that he remembers some neighbors who lifted him into his bed, although he had difficulty remembering events that led up to the time of admission. Once in the ED x-rays showed no fractures, including a head CT being negative for bleeding. He was found to have an elevated CK of 6300, ANNETTA with a BUN of 24, creatinine of 1.5 and K+ of 5.3. He had an elevated WBC count, but this may be his baseline due to hx of CLL. He will be admitted to inpatient for further workup of rhabdomyolosis and physical therapy for his debilitated state. - HOSPITAL COURSE Hospital Course: The following diagnoses were prevalent during this hospital stay: (1) Rhabdomyolysis The patient was a direct transfer from [facility] and was noted to have an elevated CK upon admission. CK was 1638 and was trending downward to 870 upon discharge. The patient was noted to have congestion, so IV fluids were discontinued 1 day before going home. He was given normal saline @ 200ml/hour, that was reduced to 150ml/hour. An indwelling mattson for accurate I/O was utilized and then discontinued. The patient's BNP was elevated at 1890, but he was taken off IVFs and started on Spironolactone prior to discharge. To prevent falls, high dose diuretics were not given. (2) ANNETTA (acute kidney injury) The patient had an elevated creatinine of 1.3 upon admission that improved to a normal value of 1.0. An indwelling mattson to monitor accurate I/Os was placed at the time of admission and discontinued. (3) CLL (chronic lymphocytic leukemia) The patient has a long history of CLL and is monitored by his PCP. It is considered to be in remission. He has a chronically elevated WBC count. Upon admission the count was ~17,000, and now down to 11.5. I suspect that he is close to his baseline given CLL. (4) Aortic stenosis, mild to moderate per preliminary echocardiogram report, the patient has AO. The patient denies a prior knowledge of this. A faint/distant heart murmur can be appreciated upon exam. The patient needs to have a controlled heart rate due to this finding, so metoprolol PO BID-immediate acting was resumed from his home med list. (5) Altered mental status, unspecified The patient had a mild slur while speaking and sometimes did not answer when being asked a question, which slowly improved each day. He has a known ETOH history, and continues to demonstrate a mild to moderate chronic tremor in his BUEs. His presenting AMS improved each day as his medical condition did. The patient was A & O x4 and could state his medical condition, but as per his has profound STM loss. He showed signs of dementia and in the future may benefit from a memory care setting and . (6) Fall The patient's confirms at least 2 falls with injury and believes that he blacked out, rather than he just lost his balance. On this admission we have learned of a mild-moderate aortic stenosis that may be the culprit of the non- mechanical falls. Prior to this admission the patient was reportedly "carried to bed" by neighbors after he was found on the floor. The patient's confirms that he drinks alcohol, which may lead to volume loss. A urine sample shows a UTI which may have also been a contributing factor. Now the patient has had at least 3 documented falls with injury. The patient underwent daily physical therapy sessions, who did not recommend SNF for rehab. (7) UTI (urinary tract infection) The patient was found to have +nitrites, many bacteria that indicate a UTI. IV antibiotics were started upon admission and he was given IVFs. The patient was given an additional 10 days of oral treatment at home with instructions to take a probiotic for twice the duration. (8)Pulmonary HTN The patient had a bedside echocardiogram that showed mild to moderate elevated right heart pressures with a RVSP at rest of 43mmHg. Spironolactone was started prior to discharge, which will also assist gently with the fluid overload that occurred as he was treated for rhabdomyolysis. Disposition: The patient was medically stable at the time of discharge. He was transported via private car home with . He was told to avoid alcohol as this may dehydrate him and cause another fall. - ALLERGIES Allergies/Adverse Reactions: Allergies Allergy/AdvReac Type Severity Reaction Status Date / Time No Known Drug Allergies Allergy Verified 04/02/13 13:03 - MEDICATIONS Home Medications: Ambulatory Orders Medication Instructions Recorded Confirmed ALPRAZolam [Alprazolam] 0.5 mg PO BID PRN 02/10/18 02/10/18 Citalopram Hydrobromide 20 mg PO DAILY 02/10/18 02/10/18 [Citalopram HBr] Losartan Potassium 50 mg PO DAILY 02/10/18 02/10/18 Guaifenesin [Mucinex] 600 mg PO BID #30 tab.er.12h 02/13/18 Levofloxacin [Levaquin] 750 mg PO DAILY 10 Days #10 tablet 02/13/18 Saccharomyces Boulardii [Florastor] 250 mg PO BID 20 Days #40 capsule 02/13/18 Spironolactone 25 mg PO DAILY #30 tablet 02/13/18 - PHYSICAL EXAM AT DISCHARGE General Appearance: positive: No acute distress, Alert Eyes Bilateral: positive: Normal inspection, PERRL ENT: positive: ENT inspection nml, Pharynx nml, Pharyngeal erythema, Dry mucous membranes Neck: positive: Nml inspection, Thyroid nml, No JVD, Trachea midline Respiratory: positive: Chest non-tender, Other (crackles that clear with coughing. Likely from IV boluses to clear CK.) Cardiovascular: positive: Regular rate & rhythm, No gallop, Systolic murmur, Decreased pulse(s) Peripheral Pulses: positive: 1+ Abdomen: positive: Non-tender, Nml bowel sounds, Other (rounded soft) Back: positive: Nml inspection Skin: positive: No rash, Warm, Dry, Cyanosis (discoloration, chronic hands and feet) Extremities: positive: Non-tender, Pedal edema (chronic BLE, dependent), Joint swelling Neurologic/Psychiatric: positive: Oriented x3, CN's nml (2-12), Weakness, Sensory loss, Depressed mood/affect Reflexes: Bicep (R): 3+, Bicep (L): 3+ - LABS Result Diagrams: 02/13/18 04:35 02/13/18 04:35 - DIAGNOSTIC IMAGING Diagnostic Imaging Results: Final report reviewed Diagnostic Imaging Results Comments: ECHOCARDIOGRAM 02/10/18: Final 1. Mild concentric LVH with normal systolic funciton, EF 65%. The LA is normal in size. 2. Mild to moderate aortic stenosis. Peak velocity 3.0 m/s, mean gradient 21 mmHg, valve area 1.4 cm squared. 3. Normal RV size and function. Moderate pulmonary HTN with a RVSP at rest of 43 mmHg. - FOLLOW UP Follow Up: Disposition: 01 Home, Self Care Condition: Good Prescriptions: Guaifenesin [Mucinex] 600 mg PO BID #30 tab.er.12h Levofloxacin [Levaquin] 750 mg PO DAILY 10 Days #10 tablet Saccharomyces Boulardii [Florastor] 250 mg PO BID 20 Days #40 capsule Spironolactone 25 mg PO DAILY #30 tablet Diet: Regular Activity Restrictions: Activity as Tolerated Shower Restrictions: No Driving Restrictions: Yes Weight Bearing: Full Weight Additional Instructions or Follow Up instructions: You were admitted for treatment of rhabdomyolysis, which if left untreated may damage your kidneys. You were given plenty of fluids and your labs were routinely checked. This cleared up and you had no evidence of kidney injury. A urine sample was taken that showed infection, so you were given IV antibiotics that are changed to an oral form. Please take all of these until they are gone. You will need a probiotic as these can cause diarrhea. An echocardiogram was completed and showed 2 things; pulmonary hypertension- elevated right heart pressure. The best medication to treat this is Spironolactone as it is a very gentle diuretic. The second finding is called mild to moderate aortic stenosis. You will do best if you have enough blood volume and your heart rate stays below 80. Do not drink alcohol and stay on your beta [place] called metoprolol. Your PCP may choose to offer you a cardiothorasic surgeon consult to find out if a valve replacement would help you out. Your valve area is 1.4 cm2, and a valve replacement is needed when you reach a measurement of ~1 cm2, so this is not an urgent matter. Please see your PCP within one week. - TIME SPENT Time Spent in Discharge (Minutes): 60 ( is present for the discharge exam/ converstaions about home safety.)
--- NOTE | 2018-02-13 13:44 | Discharge Plan ---
Discharge Plan Disposition: Home, Self Care Condition: Good Prescriptions: Guaifenesin [Mucinex] 600 mg PO BID #30 tab.er.12h Levofloxacin [Levaquin] 750 mg PO DAILY 10 Days #10 tablet Saccharomyces Boulardii [Florastor] 250 mg PO BID 20 Days #40 capsule Spironolactone 25 mg PO DAILY #30 tablet Diet: Regular Activity Restrictions: Activity as Tolerated Shower Restrictions: No Driving Restrictions: Yes Weight Bearing: Full Weight Additional Instructions or Follow Up instructions: You were admitted to for treatment of rhabdomyolysis, which if left untreated may damage your kidneys. You were given plenty of fluids and your labs were routinely checked. This cleared up and you had no evidence of kidney injury. A urine sample was taken that showed infection, so you were given IV antibiotics that are changed to an oral form. Please take all of these until they are gone. You will need a probiotic as these can cause diarrhea. An echocardiogram was completed and showed 2 things; pulmonary hypertension- elevated right heart pressure. The best medication to treat this is Spironolactone as it is a very gentle diuretic. The second finding is called mild to moderate aortic stenosis. You will do best if you have enough blood volume and your heart rate stays below 80. Do not drink alcohol and stay on your beta [place] called metoprolol. Please see your PCP within one week. No Smoking: If you smoke, Please STOP! Call for help. Follow-up with: Manjit Hampton MD [Primary Care Provider] -
[2018-02-13] MEDS ORDERED: SPIRONOLACTONE 25 MG TABLET PO SCH (14:00)
[2018-02-13] MEDS ORDERED: levoFLOXacin 250 MG TABLET PO SCH (14:00)
== END 2018-02-13 15:15 | disposition home or self-care (01) | DRG 558 ==
LOC: EDSTATUS 04:37 → MS3 04:37
PROVIDERS: ADMIT Internal Medicine; ATTEND Nurse Practitioner
DX: M62.82 Rhabdomyolysis (principal); N17.9 Acute kidney failure, unspecified; E87.1 Hypo-osmolality and hyponatremia; N39.0 Urinary tract infection, site not specified; C91.11 Chronic lymphocytic leukemia of B-cell type in remission; E87.5 Hyperkalemia; E86.0 Dehydration; D72.829 Elevated white blood cell count, unspecified; R41.82 Altered mental status, unspecified; I35.0 Nonrheumatic aortic (valve) stenosis; Z85.46 Personal history of malignant neoplasm of prostate; Z85.820 Personal history of malignant melanoma of skin; Z91.81 History of falling; Z72.89 Other problems related to lifestyle; I27.20 Pulmonary hypertension, unspecified
CPT/HCPCS: 36415; 80048; 80053; 80306; 80307; 80320; 81001; 81003; 82140; 82550; 82977; 83605; 83615; 83735; 83880; 84075; 84443; 84484; 84550; 85025; 85651; 86140; 87086; 87493; 93306

== ENCOUNTER 2018-04-29 17:26 | Outpatient (CLI) | payer MEDICARE, OTHER | END 2018-04-29 17:27 | disposition critical access hospital (66) | LOC: EMS 17:26 | PROVIDERS: ATTEND Surgery | DX: M25.552 Pain in left hip (principal); W18.39XA Other fall on same level, initial encounter; Y92.008 Other place in unspecified non-institutional (private) residence as the place of occurrence of the external cause | CPT/HCPCS: A0425; A0427 ==

== ENCOUNTER 2018-04-29 17:46 | Inpatient (IN) | payer MEDICARE, OTHER ==
--- NOTE | 2018-04-29 17:50 | ED Physician Documentation ---
PD HPI LOWER EXT INJURY - Stated complaint Stated Complaint: GLF/LT HIP PX - History obtained from History obtained from: Patient - History of Present Illness PD HPI LOW EXT INJURY LOCATION: Left, Hip Type of injury: Fall (stumbled on steps going into house.) Where injury occurred: Home (just going up steps to enter his house.) Timing - onset: Today Timing - duration: Hours (1) Timing - details: Abrupt onset, Still present Worsened by: Moving, Palpating Associated symptoms: No: Numbness Contributing factors: No: Anticoagulated, Prior ortho surgery Similar symptoms before: Has not had sx before Recently seen: Admitted (Patient was just in the hospital at [facility] for alcohol withdrawal and vomiting. He was just discharged from there and was coming home into his house when he tripped and fell. He had had a pneumonia about a week ago and finished a Z-Archie and was feeling better with that. He is not any blood thinners.) Review of Systems Constitutional: denies: Fever Nose: denies: Rhinorrhea / runny nose, Congestion Throat: denies: Sore throat Cardiac: denies: Chest pain / pressure, Palpitations Respiratory: denies: Dyspnea, Cough GI: denies: Abdominal Pain, Nausea, Vomiting Skin: denies: Abrasion (s), Laceration (s) Musculoskeletal: denies: Neck pain, Back pain Neurologic: denies: Focal weakness, Numbness, Difficulty speaking, Altered mental status, Headache, Head injury PD PAST MEDICAL HISTORY - Past Medical History Cardiovascular: None Respiratory: None Endocrine/Autoimmune: None GI: None : None HEENT: None Psych: Depression, Anxiety Musculoskeletal: Osteoarthritis Derm: Other - Past Surgical History General: Colonoscopy Ortho: Arthroscopic surgery HEENT: Tonsil/Adenoidectomy Derm: Skin cancer surgery - Present Medications Home Medications: Ambulatory Orders Medication Instructions Recorded Confirmed ALPRAZolam [Alprazolam] 0.5 mg PO BID PRN 02/10/18 02/10/18 Citalopram Hydrobromide 20 mg PO DAILY 02/10/18 02/10/18 [Citalopram HBr] Losartan Potassium 50 mg PO DAILY 02/10/18 02/10/18 Guaifenesin [Mucinex] 600 mg PO BID #30 tab.er.12h 02/13/18 Levofloxacin [Levaquin] 750 mg PO DAILY 10 Days #10 tablet 02/13/18 Saccharomyces Boulardii [Florastor] 250 mg PO BID 20 Days #40 capsule 02/13/18 Spironolactone 25 mg PO DAILY #30 tablet 02/13/18 - Allergies Allergies/Adverse Reactions: Allergies Allergy/AdvReac Type Severity Reaction Status Date / Time No Known Drug Allergies Allergy Verified 04/02/13 13:03 - Social History Smoking Status: Former smoker - Family History Family history: reports: Non contributory PD ED PE NORMAL - Vitals Vital signs reviewed: Yes - General General: Alert and oriented X 3, Well developed/nourished - HEENT HEENT: Atraumatic, Pharynx benign - Neck Neck: Supple, no meningeal sign, No bony TTP, No adenopathy - Cardiac Cardiac: RRR, No murmur - Respiratory Respiratory: Clear bilaterally - Abdomen Abdomen: Normal bowel sounds, Soft, Non tender, Non distended - Male Male : Deferred - Rectal Rectal: Deferred - Back Back: No CVA TTP - Derm Derm: Normal color, Warm and dry - Extremities Extremities: No edema, No calf tenderness / cord, Other (left hip painful with rotation and impaction. Leg is slightly shortened. Good pulses and cap refill in foot/toes. ) - Neuro Neuro: Alert and oriented X 3, No motor deficit, No sensory deficit, Normal speech Eye Opening: Spontaneous Motor: Obeys Commands Verbal: Oriented GCS Score: 15 - Psych Psych: Normal mood Results - Vitals Vitals: Vital Signs - 24 hr 04/29/18 04/29/18 17:50 20:06 Temperature 36.5 C Heart Rate 85 86 Respiratory 14 15 Rate Blood Pressure 116/79 O2 Saturation 96 94 Oxygen O2 Source Room air - Labs Labs: Laboratory Tests 04/29/18 04/29/18 20:02 20:02 WBC 12.3 H RBC 3.16 L Hgb 12.1 L Hct 36.0 L MCV 114.0 H MCH 38.4 H MCHC 33.7 RDW 18.3 H Plt Count 133 MPV 7.8 Neut # (Auto) Not Reportable Lymph # (Auto) Not Reportable [place] # (Auto) Not Reportable Eos # (Auto) Not Reportable Baso # (Auto) Not Reportable Absolute Nucleated RBC Not Reportable Total Counted 100 Band Neuts % (Manual) 0 Reactive Lymphs % (Man) 24 Abnorm Lymph % (Manual) 0 Nucleated RBC % Not Reportable Neutrophils # (Manual) 5.4 Lymphocytes # (Manual) 6.2 H Monocytes # (Manual) 0.6 Eosinophils # (Manual) 0.1 Basophils # (Manual) 0.0 Manual Slide Review Indicated WBC Morphology 1+ SMUDGE CELLS Platelet Estimate NORMAL (130-450,000) Platelet Morphology NORMAL APPEARANCE RBC Morph Micro Appear 1+ BASO STIPPLING Sodium 127 L Potassium 3.1 L Chloride 91 L Carbon Dioxide 27 Anion Gap 9.0 BUN 23 H Creatinine 1.0 Estimated GFR (MDRD) 73 L Glucose 126 H Calcium 8.2 L Magnesium 1.4 L Total Bilirubin 1.2 H AST 31 ALT 25 Alkaline Phosphatase 44 Total Protein 5.6 L Albumin 3.3 Globulin 2.3 Albumin/Globulin Ratio 1.4 Lipase 59 H - Rads (name of study) left hip Radiology: Prelim report reviewed, EMP read contemporaneously ( intertrochanteric fracture. ) PD MEDICAL DECISION MAKING - ED course Complexity details: d/w [facility] consultant (Dasia - will do surgery in AM. Talked with Dr. Camp - will admit the patient. ) - Sepsis Event Vital Signs: Vital Signs - 24 hr 04/29/18 04/29/18 17:50 20:06 Temperature 36.5 C Heart Rate 85 86 Respiratory 14 15 Rate Blood Pressure 116/79 O2 Saturation 96 94 Oxygen O2 Source Room air Departure - Departure Disposition: 66 [facility] DC/Xfer Clinical Impression: Accidental fall Qualifiers: Encounter type: initial encounter Qualified Code(s): W19.XXXA - Unspecified fall, initial encounter Intertrochanteric fracture Qualifiers: Encounter type: initial encounter Fracture type: closed Fracture alignment: displaced Laterality: left Qualified Code(s): S72.142A - Displaced intertrochanteric fracture of left femur, initial encounter for closed fracture Condition: Stable Record reviewed to determine appropriate education?: Yes Discharge Date/Time: 04/29/18 21:15
--- NOTE | 2018-04-29 19:43 | XRAY Report ---
Procedure Date: 04/29/2018 Accession Number: [id number] / [id number] Procedure: XR - Hip w/Pelvis 2-3V LT CPT Code: FULL RESULT: EXAM: LEFT HIP AND PELVIS RADIOGRAPHY EXAM DATE: 04/29/2018 07:27 PM. HISTORY: Fall with left hip pain. COMPARISONS: None. TECHNIQUE: 2 views. FINDINGS: Bones: There is comminuted, displaced left intertrochanteric femur fracture. Joints: No evidence of dislocation. Soft Tissues: No unexpected soft tissue findings. IMPRESSION: There is comminuted, varus angulated left intertrochanteric femur fracture. No evidence of dislocation. RADIA
[2018-04-29] MEDS ORDERED: MORPHINE 10 MG/ML VIAL IVP STA (20:01)
[2018-04-29 20:10] LABS: BASOPHILS % (AUTO) 0.2 %; EOSINOPHILS % (AUTO) 0.8 %; HGB - HEMOGLOBIN 12.1 g/dL (14.0-18.0); LYMPHOCYTES % (AUTO) 52.6 %; MEAN CORPUSCULAR HEMOGLOBIN 38.4 pg (27.0-31.0); MEAN CORPUSCULAR HGB CONC 33.7 g/dL (32.0-36.0); MEAN PLATELET VOLUME 7.8 fL (7.4-11.4); NEUTROPHILS % (AUTO) 40.4 %; PLT - PLATELET COUNT 133 10^3/uL (130-450); RED BLOOD COUNT 3.16 10^6/uL (4.70-6.10); RED CELL DISTRIBUTION WIDTH 18.3 % (12.0-15.0); WHITE BLOOD COUNT 12.3 x10^3/uL (4.8-10.8)
[2018-04-29] MEDS ORDERED: LORazepam 2 MG/ML VIAL IVP PRN (20:12)
[2018-04-29] MEDS ORDERED: ONDANSETRON 4 MG/2 ML VIAL IVP PRN (20:12)
[2018-04-29] MEDS ORDERED: SODIUM CHLORIDE FLUSH 0.9% 10 ML SYRINGE IVP PRN (20:12)
[2018-04-29] MEDS ORDERED: ZOLPIDEM 5 MG TABLET PO PRN (20:12)
[2018-04-29] MEDS ORDERED: PROMETHAZINE 25 MG/1 ML VIAL IM PRN (20:12)
[2018-04-29] MEDS ORDERED: ACETAMINOPHEN 325 MG TABLET PO PRN (20:12)
[2018-04-29] MEDS ORDERED: PROCHLORPERAZINE 10 MG/2 ML VIAL IVP PRN (20:12)
[2018-04-29 20:20] LABS: ALBUMIN 3.3 g/dL (3.2-5.5); ALBUMIN/GLOBULIN RATIO 1.4 (1.0-2.2); BILIRUBIN,TOTAL 1.2 mg/dL (0.2-1.0); CALCIUM 8.2 mg/dL (8.5-10.3); MAGNESIUM 1.4 mg/dL (1.7-2.8); TOTAL PROTEIN 5.6 g/dL (6.7-8.2)
--- NOTE | 2018-04-29 20:23 | HISTORY & PHYSICAL EXAMINATION ---
Chief Complaint - Chief Complaint Chief Complaint: Fall and left leg pain History of Present Illness - Admitted From Admitted From:: Emergency department - History Obtained From Records Reviewed: Yes History obtained from: Patient and his Exam Limitations: Patient unable to move his left leg secondary to fracture - History of Present Illness HPI Comment/Other: Patient is a 72-year-old gentleman with a past medical history significant for chronic lymphocytic leukemia currently stable and being monitored every 6 months , history of prostate cancer status post treatment, history of melanoma status post resection, the patient did have a recent echocardiogram done here at [facility] which showed a normal ejection fraction, moderate aortic stenosis and mild pulmonary hypertension but patient has been asymptomatic, depression, anxiety, PTSD and alcohol abuse who presented to the emergency department with a chief complaint of a fall and left leg pain. The patient states that over the last week he has been having symptoms of abdominal pain, nausea, vomiting and decreased oral intake. He states that he went to see his primary care physician about 3 days ago and appear to be dehydrated and was sent to the emergency department at [facility]. He states that he was diagnosed at [facility] with dehydration and admitted there for 2 nights. The patient does admit to drinking 3-4 glasses or one large bottle of wine nightly. He states that he has been under a great deal of stress recently as his ex- is moving with his stepson next door. He states that he has been drinking more recently. He states that over the 2 nights at [facility] he was hydrated with IV fluids and had electrolytes replaced. He states that he was significantly weaker than normal and was seen by physical therapy. Physical therapy had not completely cleared him for discharge however the patient was insistent that he wanted to go home today. Physical therapy did clear him with home PT. The patient states that he had just arrived at home and gotten out of the car when he was walking up to his front door and retrieve the mail. He states that he took a step and thinks that he may have tripped on a rock with his right foot and ended up falling on his left hip. He states that after he fell he had a great deal of pain in his left leg and could not get up. The patient's called paramedics who came to the scene and also to try to help the patient up however the patient had excruciating pain and was unable to ambulate or put any weight on his left leg. At that point he and his decided to come to the emergency department. The patient denies any recent shortness of breath, he states that he has 16 stairs in his home that he does go up and does not become short of breath nor does he have any chest pain. The patient has no history of diabetes, does not take insulin and does not have any history of kidney disease. The patient states that his nausea, vomiting and abdominal pain have resolved. He states he is able to eat and drink fine at this time. The patient denies having gone through any alcohol withdrawal or having had any alcohol withdrawal seizures. Patient denies any headaches, blurred vision, runny nose, sore throat, nasal congestion, difficulty swallowing, fevers, chills, cough, chest pain, shortness of air, orthopnea, PND, increased lower extremity swelling, abdominal pain, nausea, vomiting, diarrhea, constipation, urinary urgency, urinary frequency, dysuria, joint pain, muscle aches, back pain, neck stiffness, recent unintentional weight loss, changes in his appetite, hair loss, skin changes, polyuria, polydipsia or any focal neurologic deficits. On presentation to the emergency department the patient was afebrile and vital signs were all within normal limits. On examination the patient was found to have a externally rotated and shortened left lower extremity suspicious for a hip fracture. The patient underwent routine lab work which did reveal a hyponatremia with a sodium of 127, hypokalemia with a potassium of 3.1 and a hypomagnesemia with a magnesium of 1.4. The patient also had a slight leukocytosis of 12.3 which appears chronic for him due to his CLL. The patient' s urine showed large occult blood and RBCs but was not concerning for an infection. The patient did undergo an x-ray of his left hip which revealed a comminuted, varus angulated left intertrochanteric femur fracture. The emergency room physician contacted the orthopedic surgeon credit collections manager Dr. Forman who asked that the hospitalist team admit the patient and stated that he would see the patient in the morning and likely take him to the OR. History - Past Medical History Cardiovascular: reports: Hypertension, Valve disorder (Aortic stenosis) Respiratory: reports: COPD, Other (Pulmonary hypertension) Neuro: reports: None Endocrine/Autoimmune: reports: None GI: reports: None : reports: Other (Prostate cancer) HEENT: reports: None Psych: reports: Depression, Anxiety Musculoskeletal: reports: Osteoarthritis Derm: reports: Other (Melanoma) MRSA Hx?: No Other Past Medical History: Chronic lymphocytic leukemia - Past Surgical History General: reports: Colonoscopy Ortho: reports: Arthroscopic surgery HEENT: reports: Tonsil/Adenoidectomy Derm: reports: Skin cancer surgery - Family & Social History Family History: Mother: Alive and Well (Father in a motor vehicle accident , Mother had hip fracture and never could recover), Father: Alive and Well Family History Comment/Other: Patient had no siblings and his father was also an only child. Living arrangement: At home Living Situation: With spouse/s.o. 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 The patient is currently to his second and they have been for 23 years. The patient has 7 children 4 biological children and 3 stepchildren. The patient's ex- has decided to move next door to the patient and his current . The patient has been under a lot of stress recently due to this. The patient does not use any assistance devices at home to ambulate and has had multiple falls including 4 falls in the last 18 months. The patient has 16 steps to get into his house. The patient has been living on [facility] for over 25 years now. He was previously a smoker and smoked 1 pack a day till 2008 when he quit smoking. He states that he smoked for over 30 years. The patient continues to drink alcohol and drinks about 1 large bottle of wine every night. He rarely drinks hard liquor. The patient denies any illicit drug use. - POLST Patient has POLST: No POLST Status: Full Code Meds/Allgy - Home Medications Home Medications: Ambulatory Orders Medication Instructions Recorded Confirmed ALPRAZolam [Alprazolam] 0.5 mg PO BID PRN 02/10/18 02/10/18 Citalopram Hydrobromide 20 mg PO DAILY 02/10/18 02/10/18 [Citalopram HBr] Losartan Potassium 50 mg PO DAILY 02/10/18 02/10/18 Guaifenesin [Mucinex] 600 mg PO BID #30 tab.er.12h 02/13/18 Levofloxacin [Levaquin] 750 mg PO DAILY 10 Days #10 tablet 02/13/18 Saccharomyces Boulardii [Florastor] 250 mg PO BID 20 Days #40 capsule 02/13/18 Spironolactone 25 mg PO DAILY #30 tablet 02/13/18 - Allergies Allergies/Adverse Reactions: Allergies Allergy/AdvReac Type Severity Reaction Status Date / Time No Known Drug Allergies Allergy Verified 04/02/13 13:03 Review of Systems - Other Findings Other Findings: A comprehensive review of systems was performed the pertinent positives and negatives are stated above in the HPI and the remainder of the review of systems is negative. Exam - Vital Signs Reviewed Vital Signs: Yes Vital Signs: Vital Signs x48h Temp Pulse Resp BP Pulse Ox 04/29/18 20:06 86 15 94 04/29/18 17:50 36.5 C 85 14 116/79 96 - Physical Exam General Appearance: positive: Alert, Moderate distress (Secondary to pain in left hip) Eyes Bilateral: positive: Normal inspection, PERRL, EOMI, No lid inflammation, Conjunctivae nml, No scleral icterus ENT: positive: ENT inspection nml, Pharynx nml, Dry mucous membranes. negative : Purulent nasal drainage, Pharyngeal erythema, Oral lesions Neck: positive: Nml inspection, Thyroid nml, No JVD, Trachea midline. negative : Lymphadenopathy (R), Lymphadenopathy (L), Carotid bruit, Tracheal deviation Respiratory: positive: Chest non-tender, No respiratory distress, Breath sounds nml. negative: Wheezes, Rales, Rhonchi Cardiovascular: positive: Regular rate & rhythm, No gallop, Systolic murmur Peripheral Pulses: positive: 2+ Abdomen: positive: Non-tender, No organomegaly, Nml bowel sounds, No distention. negative: Guarding, Rebound, Hepatomegaly Back: positive: Nml inspection. negative: CVA tenderness (R), CVA tenderness (L ) Skin: positive: Color nml, No rash, Warm, Dry Extremities: positive: Other (Patient's left lower extremity is externally rotated and shortened, there is significant pain with any attempted range of motion of the left lower extremity.) Neurologic/Psychiatric: positive: Oriented x3, CN's nml (2-12), Motor nml, Sensation nml, Mood/affect nml Conclusion/Plan - Problem List (1) Intertrochanteric fracture of left femur Conclusion/Plan: The patient has what appeared to be a mechanical fall at home and was unable to get up. He presented with a shortened and externally rotated left lower extremity. The patient was found to have a displaced left intertrochanteric fracture. The patient has no history of ischemic heart disease, congestive heart failure, CVA, insulin-dependent diabetes or chronic kidney disease. The patient is not currently having any symptoms of angina or increasing shortness of breath. The patient's revised cardiac risk index for preoperative risk places him at a 0.4% risk of major cardiac event during surgery. Plan: IV fluids Pain control with Tylenol, oxycodone and IV morphine Bedrest Orthopedic surgery consult for repair of left femur fracture PT consultation Start Lovenox for DVT prophylaxis post operative Qualifiers: Encounter type: initial encounter Fracture type: closed Fracture alignment: displaced Qualified Code(s): S72.142A - Displaced intertrochanteric fracture of left femur, initial encounter for closed fracture (2) Alcohol abuse Conclusion/Plan: The patient does have a history of alcohol abuse and has been drinking more recently given recent stressors. The patient drinks about 1 large bottle of wine a night. The patient however has not drank for over 48 hours. The patient was hospitalized at [facility] and did not have any active withdrawals. The patient however was significantly dehydrated on presentation to [facility]. And he continues to be dehydrated on presentation here. The patient does have some hypomagnesemia, hypokalemia, hyponatremia and also has a mildly elevated bilirubin. It is likely that the patient does have some damage to his liver but at this point does not have any signs or symptoms of ongoing cirrhosis. Plan: Patient was counseled on the need to quit work at least cut down drinking Patient will be placed on alcohol withdrawal protocol while he is hospitalized IV thiamine, multivitamin, folic acid and magnesium Ativan as needed for withdrawal. (3) Hyponatremia Conclusion/Plan: The patient has significant hyponatremia with a sodium of 127. The patient does appear to be dry on examination and was recently hospitalized at [facility] for dehydration and alcohol abuse. The patient appears to be dry on examination and likely has hypovolemic hyponatremia. The patient will be treated with IV fluids and we will continue to monitor his sodium. (4) Hypokalemia Conclusion/Plan: The patient does have hypokalemia on presentation with a potassium of 3.1. The patient appears to be dry and was recently admitted to [facility] for dehydration. The patient was having nausea and vomiting prior to that hospitalization and has been drinking alcohol more and more recently. The patient was treated at [facility] but continues to have hypokalemia. Patient will get potassium replacement prior to surgery and we will recheck his potassium in the morning. (5) Hypomagnesemia Conclusion/Plan: The patient has a history of alcohol abuse and has been dehydrated recently. The patient on presentation has a magnesium of 1.4. Patient will get IV magnesium replacement and we will recheck his magnesium in the morning. (6) Hypertension Conclusion/Plan: Patient has a history of hypertension which is being treated with losartan and spironolactone due to history of mild pulmonary hypertension. The patient has controlled blood pressure on presentation and will be continued on his home antihypertensive medications. Qualifiers: Hypertension type: essential hypertension Qualified Code(s): I10 - Essential (primary) hypertension (7) Depression Conclusion/Plan: Patient has a history of depression and anxiety and is on citalopram and Xanax at home. The patient will be continued on both of these medications while he is hospitalized. Currently the patient's mood appears to be stable. Qualifiers: Depression Type: unspecified Qualified Code(s): F32.9 - Major depressive disorder, single episode, unspecified (8) Pulmonary hypertension Conclusion/Plan: The patient has a history of mild pulmonary hypertension and is currently asymptomatic. The patient seems to be stable from the standpoint of his pulmonary hypertension at this time. The patient is on spironolactone and will be continued on this medication while he is hospitalized. (9) Aortic stenosis Conclusion/Plan: The patient has moderate aortic stenosis on echocardiogram however the patient is asymptomatic. The patient has no worsening shortness of breath or decreased exercise tolerance. The patient has no chest pain. He does have murmur on examination but otherwise is stable. Patient will need to continue to have this monitored yearly as an outpatient Qualifiers: Cardiac valve disease etiology: etiology unspecified Qualified Code(s): I35.0 - Nonrheumatic aortic (valve) stenosis - Lab Results Lab results reviewed: Yes Fish Bones: 04/29/18 20:02 04/29/18 20:02 Other Lab Results: Laboratory Results WBC 12.3 x10^3/uL (4.8-10.8) H 04/29/18 20:02 RBC 3.16 10^6/uL (4.70-6.10) L 04/29/18 20:02 Hgb 12.1 g/dL (14.0-18.0) L 04/29/18 20:02 Hct 36.0 % (42.0-52.0) L 04/29/18 20:02 MCV 114.0 fL (80.0-94.0) H 04/29/18 20:02 MCH 38.4 pg (27.0-31.0) H 04/29/18 20:02 MCHC 33.7 g/dL (32.0-36.0) 04/29/18 20:02 RDW 18.3 % (12.0-15.0) H 04/29/18 20:02 Plt Count 133 10^3/uL (130-450) 04/29/18 20:02 MPV 7.8 fL (7.4-11.4) 04/29/18 20:02 Neut # (Auto) Not Reportable 04/29/18 20:02 Lymph # (Auto) Not Reportable 04/29/18 20:02 [place] # (Auto) Not Reportable 04/29/18 20:02 Eos # (Auto) Not Reportable 04/29/18 20:02 Baso # (Auto) Not Reportable 04/29/18 20:02 Absolute Nucleated RBC Not Reportable 04/29/18 20:02 Total Counted 100 04/29/18 20:02 Band Neuts % (Manual) 0 % (0-10) 04/29/18 20:02 Reactive Lymphs % (Man) 24 % 04/29/18 20:02 Abnorm Lymph % (Manual) 0 % 04/29/18 20:02 Nucleated RBC % Not Reportable 04/29/18 20:02 Neutrophils # (Manual) 5.4 10^3/uL (1.5-6.6) 04/29/18 20:02 Lymphocytes # (Manual) 6.2 10^3/uL (1.5-3.5) H 04/29/18 20:02 Monocytes # (Manual) 0.6 10^3/uL (0.0-1.0) 04/29/18 20:02 Eosinophils # (Manual) 0.1 10^3/uL (0-0.7) 04/29/18 20:02 Basophils # (Manual) 0.0 10^3/uL (0-0.1) 04/29/18 20:02 Manual Slide Review Indicated 04/29/18 20:02 WBC Morphology 1+ SMUDGE CELLS (NORMAL) 04/29/18 20:02 Platelet Estimate NORMAL (130-450,000) (NORMAL) 04/29/18 20: Platelet Morphology NORMAL APPEARANCE (NORMAL) 04/29/18 20:02 RBC Morph Micro Appear 2+ ANISOCYTOSIS (NORMAL) 1+ MICROCYTOSIS (NORMAL) 1+ MACROCYTOSIS (NORMAL) 1+ BASO STIPPLING (NORMAL) 04/29/18 20:02 RBC Morph Micro Appear 2+ ANISOCYTOSIS (NORMAL) 1+ MICROCYTOSIS (NORMAL) 1+ MACROCYTOSIS (NORMAL) 1+ BASO STIPPLING (NORMAL) 04/29/18 20:02 RBC Morph Micro Appear 2+ ANISOCYTOSIS (NORMAL) 1+ MICROCYTOSIS (NORMAL) 1+ MACROCYTOSIS (NORMAL) 1+ BASO STIPPLING (NORMAL) 04/29/18 20:02 RBC Morph Micro Appear 2+ ANISOCYTOSIS (NORMAL) 1+ MICROCYTOSIS (NORMAL) 1+ MACROCYTOSIS (NORMAL) 1+ BASO STIPPLING (NORMAL) 04/29/18 20:02 Sodium 127 mmol/L (135-145) L 04/29/18 20:02 Potassium 3.1 mmol/L (3.5-5.0) L 04/29/18 20:02 Chloride 91 mmol/L (101-111) L 04/29/18 20:02 Carbon Dioxide 27 mmol/L (21-32) 04/29/18 20:02 Anion Gap 9.0 (6-13) 04/29/18 20:02 BUN 23 mg/dL (6-20) H 04/29/18 20:02 Creatinine 1.0 mg/dL (0.6-1.2) 04/29/18 20:02 Estimated GFR (MDRD) 73 (>89) L 04/29/18 20:02 Glucose 126 mg/dL (70-100) H 04/29/18 20:02 Calcium 8.2 mg/dL (8.5-10.3) L 04/29/18 20:02 Magnesium 1.4 mg/dL (1.7-2.8) L 04/29/18 20:02 Total Bilirubin 1.2 mg/dL (0.2-1.0) H 04/29/18 20:02 AST 31 IU/L (10-42) 04/29/18 20:02 ALT 25 IU/L (10-60) 04/29/18 20:02 Alkaline Phosphatase 44 IU/L (42-121) 04/29/18 20:02 Total Protein 5.6 g/dL (6.7-8.2) L 04/29/18 20:02 Albumin 3.3 g/dL (3.2-5.5) 04/29/18 20: Globulin 2.3 g/dL (2.1-4.2) 04/29/18 20: Albumin/Globulin Ratio 1.4 (1.0-2.2) 04/29/18 20:02 Lipase 59 U/L (22-51) H 04/29/18 20:02 - Diagnostic Imaging Results Diagnostic Imaging Results: positive: Final report reviewed Diagnostic Imaging Results Comments: Hip/pelvis x-ray Impression: There is a comminuted, varus angulated left intertrochanteric femur fracture. No evidence of dislocation. - EKG Results EKG Interpreted Independently: Yes EKG Findings: Sinus rhythm without any ST elevations or ischemic changes Core Measures - Anticipated LOS I expect patient to be DC'd or transferred within 96 hours.: Yes - DVT/VTE - Prophylaxis VTE/DVT Prophylaxis med ordered at admit?: Yes
[2018-04-29 20:29] LABS: ABNORMAL LYMPHS % (MANUAL) 0 %; BAND NEUTROPHILS % (MANUAL) 0 %
[2018-04-29 20:32] LABS: EOSINOPHILS # (MANUAL) 0.1 10^3/uL (0-0.7); LYMPHOCYTES # (MANUAL) 6.2 10^3/uL (1.5-3.5); LYMPHOCYTES % (MANUAL) 26 %; MONOCYTES # (MANUAL) 0.6 10^3/uL (0.0-1.0); NEUTROPHILS # (MANUAL) 5.4 10^3/uL (1.5-6.6); NEUTROPHILS % (MANUAL) 44 %
[2018-04-29 20:37] LABS: PLATELET ESTIMATE, MANUAL NORMAL (130-450,000) (NORMAL); PLATELET MORPHOLOGY NORMAL APPEARANCE (NORMAL)
[2018-04-29] MEDS ORDERED: POTASSIUM CHLORIDE 20 MEQ TABLET PO ONE (20:47)
[2018-04-29] MEDS ORDERED: MAGNESIUM SULFATE 2 GRAM 2 GM/50 ML BAG IV ONE (20:47)
[2018-04-29 22:04] LABS: BILIRUBIN,URINE NEGATIVE (NEGATIVE); GLUCOSE, URINE (UA) NEGATIVE (NEGATIVE); KETONES,URINE (UA) TRACE mg/dL (NEGATIVE); LEUKOCYTE ESTERASE, URINE NEGATIVE (NEGATIVE); NITRITE,URINE NEGATIVE (NEGATIVE); OCCULT BLOOD,URINE LARGE (NEGATIVE); PROTEIN,URINE TRACE mg/dL (NEGATIVE); UROBILINOGEN,URINE 1 (NORMAL) E.U./dL (NORMAL)
[2018-04-29 22:12] LABS: CLARITY,URINE HAZY (CLEAR)
[2018-04-29 22:18] LABS: BACTERIA,URINE Rare /HPF (None Seen); CASTS, URINE 3-5 Hyaline Casts /LPF; MUCUS,URINE Few Strands; RBC,URINE TNTC /HPF (0-5); SQUAMOUS EPITHELIAL CELL,UR RARE Squamous (<= Few)
[2018-04-30] MEDS: NS W/20 MEQ KCL 1,000 ML IV SCH ×2 (00:42→11:35)
[2018-04-30] MEDS: SODIUM CHLORIDE FLUSH 0.9% 10 ML SYRINGE IVP SCH ×3 (00:42→16:37)
[2018-04-30 06:15] LABS: BASOPHILS % (AUTO) 0.1 %; EOSINOPHILS % (AUTO) 0.2 %; HGB - HEMOGLOBIN 10.8 g/dL (14.0-18.0); LYMPHOCYTES % (AUTO) 51.5 %; MEAN CORPUSCULAR HEMOGLOBIN 39.1 pg (27.0-31.0); MEAN CORPUSCULAR HGB CONC 34.1 g/dL (32.0-36.0); MEAN CORPUSCULAR VOLUME 114.5 fL (80.0-94.0); MEAN PLATELET VOLUME 8.3 fL (7.4-11.4); MONOCYTES % (AUTO) 6.2 %; PLT - PLATELET COUNT 138 10^3/uL (130-450); RED BLOOD COUNT 2.76 10^6/uL (4.70-6.10); RED CELL DISTRIBUTION WIDTH 18.3 % (12.0-15.0); WHITE BLOOD COUNT 17.4 x10^3/uL (4.8-10.8)
[2018-04-30] MEDS: MORPHINE 2 MG/ML SYRINGE IVP PRN (06:21)
[2018-04-30 06:27] LABS: ABNORMAL LYMPHS % (MANUAL) 0 %; BAND NEUTROPHILS % (MANUAL) 0 %; PT - PROTHROMBIN TIME 11.3 secs (9.9-12.6)
[2018-04-30 06:41] LABS: ALBUMIN 3.2 g/dL (3.2-5.5); ALBUMIN/GLOBULIN RATIO 1.5 (1.0-2.2); BILIRUBIN,TOTAL 1.5 mg/dL (0.2-1.0); CALCIUM 8.1 mg/dL (8.5-10.3); CREATININE 1.1 mg/dL (0.6-1.2); MAGNESIUM 1.9 mg/dL (1.7-2.8); PHOSPHORUS 4.4 mg/dL (2.5-4.6); TOTAL PROTEIN 5.3 g/dL (6.7-8.2)
[2018-04-30 06:51] LABS: FOLATE 3.74 ng/mL (5.90 - >24.8)
[2018-04-30 06:52] LABS: LYMPHOCYTES % (MANUAL) 52 %; MONOCYTES # (MANUAL) 0.7 10^3/uL (0.0-1.0); NEUTROPHILS # (MANUAL) 7.7 10^3/uL (1.5-6.6); NEUTROPHILS % (MANUAL) 44 %
[2018-04-30 06:53] LABS: DIFFERENTIAL COMMENT MANUAL DIFFERENTIAL; PLATELET ESTIMATE, MANUAL NORMAL (130-450,000) (NORMAL); RBC MORPHOLOGY (MULTIPLE) 2+ MACROCYTOSIS (NORMAL)
[2018-04-30] MEDS ORDERED: THIAMINE INJ 100 MG, FOLIC ACID INJ 1 MG in SODIUM CHLORIDE 0.9% 100ML 100 ML IV SCH (09:00)
[2018-04-30] MEDS: POLYETHYLENE GLYCOL 3350 17 GM PACKET PO SCH (09:00)
[2018-04-30] MEDS ORDERED: MULTIVITAMIN 10 ML in SODIUM CHLORIDE 0.9% 1,000 ML IV SCH (09:00)
--- NOTE | 2018-04-30 10:11 | CONSULTATION NOTE ---
DATE OF SERVICE: 04/30/2018 Physician: Keerthi Forman MD ORTHOPEDIC CONSULTATION REQUESTING PHYSICIAN: Paul Camp MD REASON FOR CONSULTATION: A left hip intertrochanteric subtrochanteric fracture. HISTORY OF PRESENT ILLNESS: Patient is a 72-year-old male who slipped on a pebble in his driveway and landed on his left hip, causing a comminuted intertrochanteric fracture. He was brought to the emergency room and diagnosed by x-ray. The patient's more significant history is that he is a chronic alcoholic who was recently in [facility] and was actually returning from a 2-night hospitalization when he came into his driveway and had his injury. The patient had been having symptoms of weakness and vomiting, and went to [facility] for IV hydration and electrolyte balance. The patient's prior medical history is delineated well in the hospital record by both the emergency room physician and Dr. Camp. Of note orthopedically is that the patient is a chronic alcoholic, has had repeated falls, but no prior major fractures. The patient is currently on no blood thinners. The physical exam shows the patient to be lying in bed. He does seem to be semi-cooperative and pleasant, but slightly confused as a historian and did not present most of the history, which was gleaned from the record, not from the patient. The patient's upper extremities and chest and heart exam are normal. The patient is able to move his neck well. His lower extremities are remarkable for shortening external rotation of the left lower extremity, swelling of the thigh and hip area with no skin contusion. Neurovascular exam is normal. The patient's skin in general has a fragile appearance with large patches of ecchymosis on the arms that appear chronic and not due to new injury. X-ray reveals a comminuted intertrochanteric/subtrochanteric fracture of the left hip. The acetabulum does not appear to show degeneration or arthritis. IMPRESSION: A 72-year-old male with some concerning medical issues revolving mainly around chronic alcoholism and dehydration, electrolyte imbalance, now with an intertrochanteric/subtrochanteric fracture requiring fixation. The patient has been admitted and treated by the hospitalist and they are in agreement with proceeding to surgical treatment of the hip. The patient will be evaluated by Anesthesia and the plan will be for surgical fixation utilizing an inner locked paulo on the left femur. TD: 04/30/2018 08:45
[2018-04-30] MEDS ORDERED: LIDOCAINE-MPF 2% 5 ML VIAL IM ONE (11:39)
[2018-04-30] MEDS ORDERED: PHENYLEPHRINE 50 MG/5 ML VIAL IV ONE (11:39)
[2018-04-30] MEDS ORDERED: fentaNYL 250 MCG/5 ML VIAL IVP ONE (11:39)
[2018-04-30] MEDS ORDERED: ePHEDrine 50 MG/ML VIAL IVP ONE (11:39)
[2018-04-30] MEDS ORDERED: MIDAZOLAM 2 MG/2 ML VIAL IVP ONE (11:39)
[2018-04-30] MEDS ORDERED: NEOSTIGMINE 1 MG/1 ML 10 ML MDV IVP ONE (11:39)
[2018-04-30] MEDS ORDERED: GLYCOPYRROLATE 1 MG/5 ML VIAL IVP ONE (11:39)
[2018-04-30] MEDS ORDERED: PROPOFOL 200 MG/20 ML VIAL IVP ONE (11:39)
[2018-04-30] MEDS ORDERED: ceFAZolin 1 GM VIAL IV ONE (11:39)
[2018-04-30] MEDS ORDERED: ROCURONIUM 50 MG/5 ML VIAL IVP ONE (11:39)
[2018-04-30] MEDS ORDERED: LACTATED RINGERS 1,000 ML IV ONE ×3 (11:46→12:07)
--- NOTE | 2018-04-30 12:01 | PROVIDER PROGRESS NOTE ---
Subjective - Prog Note Date Prog Note Date: 04/30/18 Prog Note Time: 08:00 - Subjective Pt reports feeling: No change Subjective: Johnathon has no complaints and states that when he attempts to move his new surgical leg, he does not have pain. He has not been out of bed yet as this is his first day out of surgery just hours ago. He denies any new symptoms such as shortness of breath, chest pain, nausea, vomiting or a new cough. Current Medications - Current Medications Current Medications: Active Medications Acetaminophen (Tylenol) 650 mg PO Q4HR PRN PRN Reason: Pain 1 to 4 Alprazolam (Xanax) 0.5 mg PO BID PRN PRN Reason: Anxiety Last Admin: 05/01/18 01:37 Dose: 0.5 mg Citalopram Hydrobromide (Celexa) 20 mg PO DAILY [facility] Last Admin: 05/01/18 08:40 Dose: 20 mg Enoxaparin Sodium (Lovenox) 40 mg SUBQ DAILY [facility] Last Admin: 05/01/18 07:58 Dose: Not Given Famotidine (Pepcid) 20 mg PO DAILY [facility] Last Admin: 05/01/18 08:40 Dose: 20 mg Folic Acid () 1 mg PO DAILY [facility] Potassium Chloride/Sodium Chloride (Normal Saline 0.9% W/20 Meq Kcl) 1,000 mls @ 75 mls/hr IV .[id number] [facility] Last Admin: 05/01/18 13:38 Dose: 75 mls/hr Lorazepam (Ativan Inj (Vial)) 1 mg IVP Q30M PRN; Protocol PRN Reason: CIWA >8 Losartan Potassium (Cozaar) 50 mg PO DAILY [facility] Last Admin: 05/01/18 08:40 Dose: 50 mg Magnesium Oxide (Mag Ox) 400 mg PO DAILYWM [facility] Last Admin: 05/01/18 13:37 Dose: 400 mg Morphine Sulfate (Morphine) 2 mg IVP Q2H PRN PRN Reason: Pain 8 to 10 Last Admin: 04/30/18 06:21 Dose: 2 mg Multivitamins (Theragran) 1 tab PO DAILYWM [facility] Ondansetron HCl (Zofran Inj) 4 mg IVP Q6HR PRN PRN Reason: Nausea / Vomiting Oxycodone HCl (Roxicodone) 5 mg PO Q4HR PRN PRN Reason: Pain 5 to 7 Last Admin: 05/01/18 12:38 Dose: 5 mg Oxycodone HCl (Roxicodone) 10 mg PO Q4HR PRN PRN Reason: Pain 8 to 10 Last Admin: 05/01/18 16:25 Dose: 10 mg Polyethylene Glycol (Miralax) 17 gm PO DAILY [facility] Last Admin: 05/01/18 08:40 Dose: 17 gm Prochlorperazine Edisylate (Compazine Inj) 10 mg IVP Q6HR PRN PRN Reason: Nausea / Vomiting Promethazine HCl (Phenergan Inj) 25 mg IM Q6HR PRN PRN Reason: Nausea / Vomiting Sodium Chloride (Normal Saline Flush 0.9%) 10 ml IVP PRN PRN PRN Reason: NEEDED PER PROVIDER ORDERS Last Admin: 04/30/18 06:21 Dose: 10 ml Sodium Chloride (Normal Saline Flush 0.9%) 10 ml IVP 0100,0900,1700 [facility] Last Admin: 05/01/18 15:44 Dose: Not Given Spironolactone (Aldactone) 25 mg PO DAILY [facility] Last Admin: 05/01/18 08:40 Dose: 25 mg Temazepam (Restoril) 15 mg PO QPM [facility] Last Admin: 04/30/18 22:28 Dose: Not Given Thiamine HCl (Vitamin B-1) 100 mg PO DAILY [facility] ALPRAZolam [Alprazolam] 0.5 mg PO BID PRN 02/10/18 Citalopram Hydrobromide [Citalopram HBr] 20 mg PO DAILY 02/10/18 Losartan Potassium 50 mg PO DAILY 02/10/18 Cholecalciferol (Vitamin D3) [Vitamin D3] 1,000 unit PO DAILY 05/01/18 Objective - Vital Signs/Intake & Output Reviewed Vital Signs: Yes Vital Signs: Vital Signs x48h Temp Pulse Resp BP Pulse Ox 04/30/18 07:57 36.5 C 94 16 99/58 L 95 Intake & Output: Intake & Output 04/27/18 04/28/18 04/29/18 04/30/18 23:59 23:59 23:59 23:59 Intake Total 987.802 Output Total 300 150 Balance -300 837.802 - Objective General Appearance: positive: No acute distress, Alert Eyes Bilateral: positive: Normal inspection, PERRL Eyes: OU Conjunctivae pale ENT: positive: ENT inspection nml, Pharynx nml, No signs of dehydration Neck: positive: Nml inspection, Thyroid nml, No JVD Respiratory: positive: Chest non-tender, No respiratory distress, Breath sounds nml Cardiovascular: positive: Regular rate & rhythm, No gallop, Systolic murmur, Decreased pulse(s) Peripheral Pulses: 1+ Radial (R), 1+ Radial (L), 1+ Dorsalis pedis (R), 1+ Dorsalis pedis (L) Abdomen: positive: Non-tender, Nml bowel sounds Back: positive: Nml inspection Skin: positive: No rash, Warm, Dry Extremities: positive: Pedal edema, Joint swelling (left hip with an ice pack in place and only mild swelling.) Neurologic/Psychiatric: positive: Oriented x3, CN's nml (2-12), Motor nml, Sensation nml, Depressed mood/affect Reflexes: Bicep (R): 2+ (equal), Bicep (L): 2+ - Lab Results Fish Bones: 05/01/18 19:10 05/01/18 04:55 Other Labs: Lab Results x24hrs 04/30/18 04/30/18 04/30/18 Range/Units 05:32 05:32 05:32 WBC (4.8-10.8) x10^3/uL RBC (4.70-6.10) 10^6/uL Hgb (14.0-18.0) g/dL Hct (42.0-52.0) % MCV (80.0-94.0) fL MCH (27.0-31.0) pg MCHC (32.0-36.0) g/dL RDW (12.0-15.0) % Plt Count (130-450) 10^3/uL MPV (7.4-11.4) fL Neut # (Auto) Lymph # (Auto) [place] # (Auto) Eos # (Auto) Baso # (Auto) Absolute Nucleated RBC Total Counted Band Neuts % (Manual) (0 - 10) % Abnorm Lymph % (Manual) % Nucleated RBC % Neutrophils # (Manual) (1.5-6.6) 10^3/uL Lymphocytes # (Manual) (1.5-3.5) 10^3/uL Monocytes # (Manual) (0.0-1.0) 10^3/uL Eosinophils # (Manual) (0-0.7) 10^3/uL Basophils # (Manual) (0-0.1) 10^3/uL Differential Comment Platelet Estimate (NORMAL) RBC Morph Micro Appear (NORMAL) PT 11.3 (9.9-12.6) secs INR 1.0 (0.8-1.2) Sodium 128 L (135-145) mmol/L Potassium 3.8 (3.5-5.0) mmol/L Chloride 93 L (101-111) mmol/L Carbon Dioxide 27 (21-32) mmol/L Anion Gap 8.0 (6-13) BUN 27 H (6-20) mg/dL Creatinine 1.1 (0.6-1.2) mg/dL Estimated GFR (MDRD) 65 L (>89) Glucose 134 H (70-100) mg/dL Calcium 8.1 L (8.5-10.3) mg/dL Phosphorus 4.4 (2.5-4.6) mg/dL Magnesium 1.9 (1.7-2.8) mg/dL Total Bilirubin 1.5 H (0.2-1.0) mg/dL AST 25 (10-42) IU/L ALT 22 (10-60) IU/L Alkaline Phosphatase 40 L (42-121) IU/L Total Protein 5.3 L (6.7-8.2) g/dL Albumin 3.2 (3.2-5.5) g/dL Globulin 2.1 (2.1-4.2) g/dL Albumin/Globulin Ratio 1.5 (1.0-2.2) Vitamin B12 429 (180-914) pg/mL Folate 3.74 L (5.90 - >24.8) ng/mL Urine Color Urine Clarity (CLEAR) Urine pH (5.0-7.5) PH Ur Specific [place] (1.002-1.030) Urine Protein (NEGATIVE) mg/dL Urine Glucose (UA) (NEGATIVE) mg/dL Urine Ketones (NEGATIVE) mg/dL Urine Occult Blood (NEGATIVE) Urine Nitrite (NEGATIVE) Urine Bilirubin (NEGATIVE) Urine Urobilinogen (NORMAL) E.U./dL Ur Leukocyte Esterase (NEGATIVE) Urine RBC (0-5) /HPF Urine WBC (0-3) /HPF Ur Squamous Epith Cells (<= Few) Urine Bacteria (None Seen) /HPF Urine Casts /LPF Urine Mucus Ur Microscopic Review Urine Culture Comments 04/30/18 04/29/18 Range/Units 05:32 21:35 WBC 17.4 H (4.8-10.8) x10^3/uL RBC 2.76 L (4.70-6.10) 10^6/uL Hgb 10.8 L (14.0-18.0) g/dL Hct 31.6 L (42.0-52.0) % MCV 114.5 H (80.0-94.0) fL MCH 39.1 H (27.0-31.0) pg MCHC 34.1 (32.0-36.0) g/dL RDW 18.3 H (12.0-15.0) % Plt Count 138 (130-450) 10^3/uL MPV 8.3 (7.4-11.4) fL Neut # (Auto) Not Reportable Lymph # (Auto) Not Reportable [place] # (Auto) Not Reportable Eos # (Auto) Not Reportable Baso # (Auto) Not Reportable Absolute Nucleated RBC Not Reportable Total Counted 100 Band Neuts % (Manual) 0 (0 - 10) % Abnorm Lymph % (Manual) 0 % Nucleated RBC % Not Reportable Neutrophils # (Manual) 7.7 H (1.5-6.6) 10^3/uL Lymphocytes # (Manual) 9.0 H (1.5-3.5) 10^3/uL Monocytes # (Manual) 0.7 (0.0-1.0) 10^3/uL Eosinophils # (Manual) 0.0 (0-0.7) 10^3/uL Basophils # (Manual) 0.0 (0-0.1) 10^3/uL Differential Comment MANUAL DIFFERENTIAL Platelet Estimate NORMAL (130-450,000) (NORMAL) RBC Morph Micro Appear 2+ MACROCYTOSIS (NORMAL) PT (9.9-12.6) secs INR (0.8-1.2) Sodium (135-145) mmol/L Potassium (3.5-5.0) mmol/L Chloride (101-111) mmol/L Carbon Dioxide (21-32) mmol/L Anion Gap (6-13) BUN (6-20) mg/dL Creatinine (0.6-1.2) mg/dL Estimated GFR (MDRD) (>89) Glucose (70-100) mg/dL Calcium (8.5-10.3) mg/dL Phosphorus (2.5-4.6) mg/dL Magnesium (1.7-2.8) mg/dL Total Bilirubin (0.2-1.0) mg/dL AST (10-42) IU/L ALT (10-60) IU/L Alkaline Phosphatase (42-121) IU/L Total Protein (6.7-8.2) g/dL Albumin (3.2-5.5) g/dL Globulin (2.1-4.2) g/dL Albumin/Globulin Ratio (1.0-2.2) Vitamin B12 (180-914) pg/mL Folate (5.90 - >24.8) ng/mL Urine Color DARK YELLOW Urine Clarity HAZY (CLEAR) Urine pH 6.0 (5.0-7.5) PH Ur Specific [place] 1.020 (1.002-1.030) Urine Protein TRACE (NEGATIVE) mg/dL Urine Glucose (UA) NEGATIVE (NEGATIVE) mg/dL Urine Ketones TRACE (NEGATIVE) mg/dL Urine Occult Blood LARGE H (NEGATIVE) Urine Nitrite NEGATIVE (NEGATIVE) Urine Bilirubin NEGATIVE (NEGATIVE) Urine Urobilinogen 1 (NORMAL) (NORMAL) E.U./dL Ur Leukocyte Esterase NEGATIVE (NEGATIVE) Urine RBC TNTC H (0-5) /HPF Urine WBC 0-3 (0-3) /HPF Ur Squamous Epith Cells RARE Squamous (<= Few) Urine Bacteria Rare (None Seen) /HPF Urine Casts 3-5 Hyaline Casts /LPF Urine Mucus Few Strands Ur Microscopic Review INDICATED Urine Culture Comments NOT INDICATED ABX Reporting Has patient been on IV antibiotics over the past 48 hours?: No Assessment/Plan - Problem List (1) Alcohol dependence Impression: On the previous admission back in February of 2018, the patient was advised to stop drinking alcohol with is aortic stenosis and that the alcohol consumption will only dehydrate him, and possibly lead to falls. On this admission, his states that he had just been at [facility] where he was treated for alcohol withdrawal and his last known drink was at least one week ago. Plan: Supplement with a banana bag and watch for withdrawal symptoms. (2) Accidental fall Impression: As the patient was climbing the stairs directly following discharge from [facility], he reportedly reached for the door knob and fell. This resulted in a left hip fracture as confirmed on imaging. Dr. Forman repaired his left hip, and he has had an uncomplicated post of course. Plan: Continue with post op care. Qualifiers: Encounter type: initial encounter Qualified Code(s): W19.XXXA - Unspecified fall, initial encounter (3) Hypertension Impression: The patient has a history of this and is prescribed Spironolactone and Losartan at home. Plan: Continue to monitor vital signs. Qualifiers: Hypertension type: essential hypertension Qualified Code(s): I10 - Essential (primary) hypertension (4) Intertrochanteric fracture of left femur Impression: On examination the patient was found to have a externally rotated and shortened left lower extremity suspicious for a hip fracture. x-ray of his left hip which revealed a comminuted, varus angulated left intertrochanteric femur fracture. He is now post-op for a left femur repair with Dr. Forman. Plan: PT/OT and general post op care. Qualifiers: Encounter type: initial encounter Fracture type: closed Fracture alignment: displaced Qualified Code(s): S72.142A - Displaced intertrochanteric fracture of left femur, initial encounter for closed fracture (5) Hyponatremia Impression: The patient was found to have several electrolyte abnormalities with his sodium being low at 127 upon admission. Plan: Continue gentle IV fluids, and monitor daily labs.
[2018-04-30] MEDS ORDERED: SODIUM CHLORIDE 0.9% 1,000 ML IV ONE ×2 (12:07→22:44)
--- NOTE | 2018-04-30 12:47 | OPERATIVE REPORT ---
Operative Report - General Admit Date: 04/29/18 Procedure Date: 04/30/18 Planned Procedure: locked IM rodding of left femur Pre-Op Diagnosis: intertrochanteric/subtrochanteric left hip comminuted closed fracture Procedure Performed: closed IM rodding of left femur with proximal and distal interlock Post Op Diagnosis: same - Procedure Note Primary Surgeon: tiana Anesthesia Provider: Yasemin Zuniga Anesthesia Technique: Combo spinal/epidural Estimated Blood Loss (mL): 150
--- NOTE | 2018-04-30 13:39 | XRAY Report ---
Procedure Date: 04/30/2018 Accession Number: [id number] / [id number] Procedure: FL - OR C-Arm Procedure CPT Code: FULL RESULT: EXAM: Hip w/Pelvis 2-3V LT, OR C-Arm Procedure DATE: 04/30/2018 12:41 PM CLINICAL HISTORY: surgery COMPARISON: Hip radiograph 04/29/2018. TECHNIQUE: 4 intraoperative flat plate images of the left hip and distal left femur. The fluoroscopy time was 1 minute and 1 second. 4 still images were obtained. FINDINGS: Intraoperative left hip fixation with a partially threaded cannulated screw and intramedullary nail. Prostatic radiation seeds are partially imaged. The distal end of the intramedullary nail is documented to be intraosseous. IMPRESSION: Left hip fixation. RADIA
--- NOTE | 2018-04-30 13:39 | XRAY Report ---
Procedure Date: 04/30/2018 Accession Number: [id number] / [id number] Procedure: XR - Hip w/Pelvis 2-3V LT CPT Code: FULL RESULT: EXAM: Hip w/Pelvis 2-3V LT, OR C-Arm Procedure DATE: 04/30/2018 12:41 PM CLINICAL HISTORY: surgery COMPARISON: Hip radiograph 04/29/2018. TECHNIQUE: 4 intraoperative flat plate images of the left hip and distal left femur. The fluoroscopy time was 1 minute and 1 second. 4 still images were obtained. FINDINGS: Intraoperative left hip fixation with a partially threaded cannulated screw and intramedullary nail. Prostatic radiation seeds are partially imaged. The distal end of the intramedullary nail is documented to be intraosseous. IMPRESSION: Left hip fixation. RADIA
[2018-04-30] MEDS: FAMOTIDINE 20 MG TABLET PO SCH (14:18)
[2018-04-30] MEDS: LOSARTAN 50 MG TABLET PO SCH (14:18)
[2018-04-30] MEDS: SPIRONOLACTONE 25 MG TABLET PO SCH (14:19)
[2018-04-30] MEDS: CITALOPRAM 10 MG TABLET PO SCH (14:19)
[2018-04-30] MEDS ORDERED: ENOXAPARIN 40 MG/0.4 ML SYRINGE SUBQ SCH (18:00)
[2018-04-30] MEDS: oxyCODONE 5 MG TABLET PO PRN ×2 (18:34→22:25)
[2018-04-30] MEDS: ceFAZolin 2 GM/50 ML 2 GM/50 ML BAG IV SCH (18:42)
[2018-04-30] MEDS: TEMAZEPAM 15 MG CAPSULE PO SCH (22:28)
[2018-05-01] MEDS: SODIUM CHLORIDE FLUSH 0.9% 10 ML SYRINGE IVP SCH ×4 (00:16→20:01)
[2018-05-01] MEDS: ALPRAZolam 0.25 MG TABLET PO PRN (01:37)
[2018-05-01] MEDS: NS W/20 MEQ KCL 1,000 ML IV SCH ×2 (03:29→13:38)
[2018-05-01] MEDS: ceFAZolin 2 GM/50 ML 2 GM/50 ML BAG IV SCH (03:33)
--- NOTE | 2018-05-01 05:15 | Ultrasound Report ---
Procedure Date: 05/01/2018 Accession Number: [id number] / [id number] Procedure: US - Abdomen Complete CPT Code: FULL RESULT: EXAM: ABDOMEN ULTRASOUND EXAM DATE: 05/01/2018 01:35 AM. CLINICAL HISTORY: Alcoholic with elevated bilirubin. COMPARISON: None. TECHNIQUE: Real-time scanning was performed with static images obtained. FINDINGS: Liver: Echogenic and heterogeneous. 16.6 cm. Main portal vein flow: Hepatopetal. Gallbladder: Normal. No stones, wall thickening, or sonographic Lenz's sign. Biliary System: Common bile duct measures 6 mm. No intrahepatic or extrahepatic ductal dilatation. Pancreas: Not seen due to bowel gas. Kidneys: Right: 9.9 cm longitudinally. Normal. No contour-deforming mass, stones, or hydronephrosis. Left: 10.6 cm longitudinally. Normal. No contour-deforming mass, stones, or hydronephrosis. Spleen: 10.5 cm. Normal in size and echotexture. Aorta and Inferior Vena Cava: No aortic aneurysm seen. There is some atherosclerotic plaquing. Inferior vena cava is patent where seen. Other: None. IMPRESSION: 1. No cholelithiasis or cholecystitis seen. 2. No biliary dilatation. 3. Echogenic heterogeneous liver possibly representing fatty infiltration. Cirrhosis also possible. RADIA
[2018-05-01 05:37] LABS: ALBUMIN 2.1 g/dL (3.2-5.5); BILIRUBIN,TOTAL 0.7 mg/dL (0.2-1.0); CALCIUM 7.1 mg/dL (8.5-10.3); CREATININE 1.1 mg/dL (0.6-1.2); MAGNESIUM 1.6 mg/dL (1.7-2.8); TOTAL PROTEIN 4.2 g/dL (6.7-8.2)
[2018-05-01] MEDS: oxyCODONE 5 MG TABLET PO PRN ×3 (05:59→16:25)
[2018-05-01 06:32] LABS: BASOPHILS % (AUTO) 0.1 %; EOSINOPHILS % (AUTO) 0.2 %; LYMPHOCYTES # (AUTO) 3.2 10^3/uL (1.5-3.5); LYMPHOCYTES % (AUTO) 37.7 %; MEAN CORPUSCULAR HEMOGLOBIN 38.5 pg (27.0-31.0); MEAN CORPUSCULAR HGB CONC 33.1 g/dL (32.0-36.0); MEAN CORPUSCULAR VOLUME 116.3 fL (80.0-94.0); MEAN PLATELET VOLUME 8.4 fL (7.4-11.4); MONOCYTES % (AUTO) 11.9 %; NEUTROPHILS # (AUTO) 4.2 10^3/uL (1.5-6.6); NEUTROPHILS % (AUTO) 50.1 %; PLT - PLATELET COUNT 88 10^3/uL (130-450); RED BLOOD COUNT 1.77 10^6/uL (4.70-6.10); RED CELL DISTRIBUTION WIDTH 18.9 % (12.0-15.0); WHITE BLOOD COUNT 8.5 x10^3/uL (4.8-10.8)
[2018-05-01 07:00] LABS: HGB - HEMOGLOBIN 6.8 g/dL (14.0-18.0)
[2018-05-01 07:05] LABS: PLATELET ESTIMATE, MANUAL DECREASED (<130,000) (NORMAL)
[2018-05-01] MEDS: ENOXAPARIN 40 MG/0.4 ML SYRINGE SUBQ SCH (07:58)
[2018-05-01] MEDS: FAMOTIDINE 20 MG TABLET PO SCH (08:40)
[2018-05-01] MEDS: LOSARTAN 50 MG TABLET PO SCH (08:40)
[2018-05-01] MEDS: SPIRONOLACTONE 25 MG TABLET PO SCH (08:40)
[2018-05-01] MEDS: CITALOPRAM 10 MG TABLET PO SCH (08:40)
[2018-05-01] MEDS: POLYETHYLENE GLYCOL 3350 17 GM PACKET PO SCH (08:40)
[2018-05-01] MEDS ORDERED: SODIUM CHLORIDE 0.9% 50 ML IV ONE (08:47)
[2018-05-01] MEDS ORDERED: MAGNESIUM SULFATE 1 GM in SODIUM CHLORIDE 0.9% 50 ML IV ONE (09:00)
--- NOTE | 2018-05-01 09:29 | PROVIDER PROGRESS NOTE ---
Subjective - General Admit Date: 04/29/18 Procedure Date: 04/30/18 Post Op Days: 1 - Review of Systems Wound/Incisions: positive: Dressing dry and intact Musculoskeletal: positive: Joint pain, Joint swelling Neurological: Objective - Patient Data Reviewed Vital Signs: Yes Vital Signs: Vital Signs x48h Temp Pulse Resp BP Pulse Ox 05/01/18 07:15 36.8 C 92 18 107/61 94 05/01/18 05:38 36.5 C 105 H 16 111/57 L 97 Weight: Weight 04/29/18 04/30/18 05/01/18 23:59 23:59 23:59 Weight (kg) 77 kg Intake & Output: Intake and Output Totals x24h 04/29/18 04/30/18 05/01/18 23:59 23:59 23:59 Intake Total 2524.808 1566.392 Output Total 300 550 300 Balance -300 1064.176 0087.392 - Lab Results Lab Results: 05/01/18 06:15 05/01/18 04:55 Other Lab Results: Lab Results x24hrs 05/01/18 05/01/18 05/01/18 Range/Units 06:15 06:15 04:55 WBC 8.5 (4.8-10.8) x10^3/uL RBC 1.77 L (4.70-6.10) 10^6/uL Hgb 6.8 L* (14.0-18.0) g/dL Hct 20.6 L (42.0-52.0) % MCV 116.3 H (80.0-94.0) fL MCH 38.5 H (27.0-31.0) pg MCHC 33.1 (32.0-36.0) g/dL RDW 18.9 H (12.0-15.0) % Plt Count 88 L (130-450) 10^3/uL MPV 8.4 (7.4-11.4) fL Neut # (Auto) 4.2 (1.5-6.6) 10^3/uL Lymph # (Auto) 3.2 (1.5-3.5) 10^3/uL [place] # (Auto) 1.0 (0.0-1.0) 10^3/uL Eos # (Auto) 0.0 (0.0-0.7) 10^3/uL Baso # (Auto) 0.0 (0.0-0.1) 10^3/uL Absolute Nucleated RBC 0.00 x10^3/uL Nucleated RBC % 0.0 /100WBC Manual Slide Review Indicated Platelet Estimate DECREASED (<130,000) (NORMAL) RBC Morph Micro Appear 1+ BASO STIPPLING (NORMAL) Sodium (135-145) mmol/L Potassium (3.5-5.0) mmol/L Chloride (101-111) mmol/L Carbon Dioxide (21-32) mmol/L Anion Gap (6-13) BUN (6-20) mg/dL Creatinine (0.6-1.2) mg/dL Estimated GFR (MDRD) (>89) Glucose (70-100) mg/dL Calcium (8.5-10.3) mg/dL Phosphorus (2.5-4.6) mg/dL Magnesium (1.7-2.8) mg/dL Total Bilirubin (0.2-1.0) mg/dL AST (10-42) IU/L ALT (10-60) IU/L Alkaline Phosphatase (42-121) IU/L Total Protein (6.7-8.2) g/dL Albumin (3.2-5.5) g/dL Globulin (2.1-4.2) g/dL Albumin/Globulin Ratio (1.0-2.2) Blood Type A POSITIVE Blood Type Recheck A POSITIVE Antibody Screen NEGATIVE Crossmatch IS Only See Detail 05/01/18 Range/Units 04:55 WBC (4.8-10.8) x10^3/uL RBC (4.70-6.10) 10^6/uL Hgb (14.0-18.0) g/dL Hct (42.0-52.0) % MCV (80.0-94.0) fL MCH (27.0-31.0) pg MCHC (32.0-36.0) g/dL RDW (12.0-15.0) % Plt Count (130-450) 10^3/uL MPV (7.4-11.4) fL Neut # (Auto) (1.5-6.6) 10^3/uL Lymph # (Auto) (1.5-3.5) 10^3/uL [place] # (Auto) (0.0-1.0) 10^3/uL Eos # (Auto) (0.0-0.7) 10^3/uL Baso # (Auto) (0.0-0.1) 10^3/uL Absolute Nucleated RBC x10^3/uL Nucleated RBC % /100WBC Manual Slide Review Platelet Estimate (NORMAL) RBC Morph Micro Appear (NORMAL) Sodium 128 L (135-145) mmol/L Potassium 4.0 (3.5-5.0) mmol/L Chloride 99 L (101-111) mmol/L Carbon Dioxide 24 (21-32) mmol/L Anion Gap 5.0 L (6-13) BUN 30 H (6-20) mg/dL Creatinine 1.1 (0.6-1.2) mg/dL Estimated GFR (MDRD) 65 L (>89) Glucose 126 H (70-100) mg/dL Calcium 7.1 L (8.5-10.3) mg/dL Phosphorus 3.0 (2.5-4.6) mg/dL Magnesium 1.6 L (1.7-2.8) mg/dL Total Bilirubin 0.7 (0.2-1.0) mg/dL AST 19 (10-42) IU/L ALT 16 (10-60) IU/L Alkaline Phosphatase 27 L (42-121) IU/L Total Protein 4.2 L (6.7-8.2) g/dL Albumin 2.1 L (3.2-5.5) g/dL Globulin 2.1 (2.1-4.2) g/dL Albumin/Globulin Ratio 1.0 (1.0-2.2) Blood Type Blood Type Recheck Antibody Screen Crossmatch IS Only - Imaging Results Radiology Imaging: positive: EMP read indepedently - Current Medications Current Medications: Current Medications Generic Name Dose Route Start Last Admin Trade Name Freq PRN Reason Stop Dose Admin Alprazolam 0.5 mg 04/29/18 20:11 05/01/18 01:37 Xanax PO 0.5 mg BID PRN Administration Anxiety Citalopram Hydrobromide 20 mg 04/30/18 09:00 05/01/18 08:40 Celexa PO 20 mg DAILY SHAYNE Administration Enoxaparin Sodium 40 mg 05/01/18 09:00 05/01/18 07:58 Lovenox SUBQ Not Given DAILY SHAYNE Famotidine 20 mg 04/30/18 09:00 05/01/18 08:40 Pepcid PO 20 mg DAILY SHAYNE Administration Multivitamins 10 ml/ Sodium 1,010 mls @ 100 mls/hr 04/30/18 09:00 04/30/18 22 :36 Chloride IV Infused DAILY SHAYNE Infusion Thiamine HCl 100 mg/ Folic 101.2 mls @ 50.6 mls/hr 04/30/18 09:00 04/30/18 14 :24 Acid 1 mg/ Sodium Chloride IV Infused DAILY SHAYNE Infusion Potassium Chloride/Sodium Chloride 1,000 mls @ 83.333 mls/hr 04/29/18 23:00 05/01/18 03:29 Normal Saline 0.9% W/20 Meq Kcl IV 83.333 mls/hr .Q12H SHAYNE Administration Losartan Potassium 50 mg 04/30/18 09:00 05/01/18 08:40 Cozaar PO 50 mg DAILY SHAYNE Administration Morphine Sulfate 2 mg 04/29/18 20:12 04/30/18 06:21 Morphine IVP 2 mg Q2H PRN Administration Pain 8 to 10 Oxycodone HCl 5 mg 04/29/18 20:12 05/01/18 05:59 Roxicodone PO 5 mg Q4HR PRN Administration Pain 5 to 7 Polyethylene Glycol 17 gm 04/30/18 09:00 05/01/18 08:40 Miralax PO 17 gm DAILY SHAYNE Administration Sodium Chloride 10 ml 04/29/18 20:12 04/30/18 06:21 Normal Saline Flush 0.9% IVP 10 ml PRN PRN Administration NEEDED PER PROVIDER ORDERS Sodium Chloride 10 ml 04/30/18 01:00 05/01/18 08:40 Normal Saline Flush 0.9% IVP 10 ml 0100,0900,1700 SHAYNE Administration Spironolactone 25 mg 04/30/18 09:00 05/01/18 08:40 Aldactone PO 25 mg DAILY SHAYNE Administration Temazepam 15 mg 04/30/18 21:00 04/30/18 22:28 Restoril PO Not Given QPM SHAYNE - Physical Exam Wound/Incisions: positive: Dressing dry and intact General Appearance: positive: No acute distress Skin: positive: No rash, Warm, Dry Extremities: positive: Joint swelling Neurologic/Psychiatric: positive: Oriented x3 Impression/Plan - Problem List Problem List: POD #1 Pt has post-surgical anemia and will be transfused. Will advance with PT tomorrow. Expect patient will need ECF placement at discharge.
[2018-05-01] MEDS ORDERED: MAGNESIUM SULFATE 2 GRAM 0 GM/0 ML BAG IV ONE (10:05)
[2018-05-01] MEDS ORDERED: SODIUM CHLORIDE FLUSH 0.9% 10 ML SYRINGE ONE (10:05)
--- NOTE | 2018-05-01 11:43 | PROVIDER PROGRESS NOTE ---
Subjective - Prog Note Date Prog Note Date: 05/01/18 - Subjective Pt reports feeling: Improved Subjective: pt report he feel good status post of surgery of left hip repair day one. Pt complain he did not have much sleep on last night, still has some pain when he tried to move his leg. Pt denies fever, chill, cough, chest pain. Current Medications - Current Medications Current Medications: Active Medications Acetaminophen (Tylenol) 650 mg PO Q4HR PRN PRN Reason: Pain 1 to 4 Alprazolam (Xanax) 0.5 mg PO BID PRN PRN Reason: Anxiety Last Admin: 05/01/18 01:37 Dose: 0.5 mg Citalopram Hydrobromide (Celexa) 20 mg PO DAILY [facility] Last Admin: 05/01/18 08:40 Dose: 20 mg Enoxaparin Sodium (Lovenox) 40 mg SUBQ DAILY [facility] Last Admin: 05/01/18 07:58 Dose: Not Given Famotidine (Pepcid) 20 mg PO DAILY [facility] Last Admin: 05/01/18 08:40 Dose: 20 mg Folic Acid () 1 mg PO DAILY [facility] Potassium Chloride/Sodium Chloride (Normal Saline 0.9% W/20 Meq Kcl) 1,000 mls @ 75 mls/hr IV .[id number] [facility] Lorazepam (Ativan Inj (Vial)) 1 mg IVP Q30M PRN; Protocol PRN Reason: CIWA >8 Losartan Potassium (Cozaar) 50 mg PO DAILY [facility] Last Admin: 05/01/18 08:40 Dose: 50 mg Morphine Sulfate (Morphine) 2 mg IVP Q2H PRN PRN Reason: Pain 8 to 10 Last Admin: 04/30/18 06:21 Dose: 2 mg Ondansetron HCl (Zofran Inj) 4 mg IVP Q6HR PRN PRN Reason: Nausea / Vomiting Oxycodone HCl (Roxicodone) 5 mg PO Q4HR PRN PRN Reason: Pain 5 to 7 Last Admin: 05/01/18 05:59 Dose: 5 mg Oxycodone HCl (Roxicodone) 10 mg PO Q4HR PRN PRN Reason: Pain 8 to 10 Polyethylene Glycol (Miralax) 17 gm PO DAILY [facility] Last Admin: 05/01/18 08:40 Dose: 17 gm Prochlorperazine Edisylate (Compazine Inj) 10 mg IVP Q6HR PRN PRN Reason: Nausea / Vomiting Promethazine HCl (Phenergan Inj) 25 mg IM Q6HR PRN PRN Reason: Nausea / Vomiting Sodium Chloride (Normal Saline Flush 0.9%) 10 ml IVP PRN PRN PRN Reason: NEEDED PER PROVIDER ORDERS Last Admin: 04/30/18 06:21 Dose: 10 ml Sodium Chloride (Normal Saline Flush 0.9%) 10 ml IVP 0100,0900,1700 [facility] Last Admin: 05/01/18 08:40 Dose: 10 ml Spironolactone (Aldactone) 25 mg PO DAILY [facility] Last Admin: 05/01/18 08:40 Dose: 25 mg Temazepam (Restoril) 15 mg PO QPM [facility] Last Admin: 04/30/18 22:28 Dose: Not Given Thiamine HCl (Vitamin B-1) 100 mg PO DAILY [facility] ALPRAZolam [Alprazolam] 0.5 mg PO BID PRN 02/10/18 Citalopram Hydrobromide [Citalopram HBr] 20 mg PO DAILY 02/10/18 Losartan Potassium 50 mg PO DAILY 02/10/18 Cholecalciferol (Vitamin D3) [Vitamin D3] 1,000 unit PO DAILY 05/01/18 Objective - Vital Signs/Intake & Output Reviewed Vital Signs: Yes Vital Signs: Vital Signs x48h Temp Pulse Pulse Resp BP BP Pulse Ox 05/01/18 11:10 36.7 C 102 H 16 113/61 05/01/18 10:54 37.0 C 101 H 16 112/64 05/01/18 07:15 36.8 C 92 18 107/61 94 05/01/18 05:38 36.5 C 105 H 16 111/57 L 97 Intake & Output: Intake & Output 04/28/18 04/29/18 04/30/18 05/01/18 23:59 23:59 23:59 23:59 Intake Total 2524.808 1618.392 Output Total 300 550 500 Balance -300 6096.203 9751.392 - Objective General Appearance: positive: No acute distress, Alert. negative: Lethargic Eyes Bilateral: positive: Normal inspection, PERRL, No lid inflammation, Conjunctivae nml ENT: positive: ENT inspection nml, Pharynx nml, No signs of dehydration. negative: Purulent nasal drainage, Pharyngeal erythema, Oral lesions Neck: positive: Nml inspection, Thyroid nml, No JVD, Trachea midline. negative : Thyromegaly, Lymphadenopathy (R), Lymphadenopathy (L), Stiff neck, Carotid bruit, Swelling/bruising, Tracheal deviation Respiratory: positive: Chest non-tender, No respiratory distress, Breath sounds nml. negative: Wheezes, Rales, Rhonchi Cardiovascular: positive: Regular rate & rhythm, No murmur, No gallop. negative : Irregularly irregular, Extrasystoles, Tachycardia, Bradycardia, JVD present, Systolic murmur, Diastolic murmur Peripheral Pulses: 2+ Radial (R), 2+ Radial (L), 2+ Dorsalis pedis (R), 2+ Dorsalis pedis (L) Abdomen: positive: Non-tender, No organomegaly, Nml bowel sounds, No distention. negative: Tenderness, Guarding, Rebound Back: positive: Nml inspection. negative: CVA tenderness (R), CVA tenderness (L ) Skin: positive: Color nml, No rash, Warm, Dry. negative: Cyanosis, Diaphoresis , Pallor Extremities: positive: Non-tender, Nml appearance. negative: Calf tenderness, Joint swelling, Pio's sign/cords Neurologic/Psychiatric: positive: Oriented x3, Sensation nml, Mood/affect nml. negative: Weakness, Sensory loss, Facial droop, Slurred/abnml speech, Depressed mood/affect - Lab Results Fish Bones: 05/01/18 06:15 05/01/18 04:55 Other Labs: Lab Results x24hrs 05/01/18 05/01/18 05/01/18 Range/Units 06:15 06:15 04:55 WBC 8.5 (4.8-10.8) x10^3/uL RBC 1.77 L (4.70-6.10) 10^6/uL Hgb 6.8 L* (14.0-18.0) g/dL Hct 20.6 L (42.0-52.0) % MCV 116.3 H (80.0-94.0) fL MCH 38.5 H (27.0-31.0) pg MCHC 33.1 (32.0-36.0) g/dL RDW 18.9 H (12.0-15.0) % Plt Count 88 L (130-450) 10^3/uL MPV 8.4 (7.4-11.4) fL Neut # (Auto) 4.2 (1.5-6.6) 10^3/uL Lymph # (Auto) 3.2 (1.5-3.5) 10^3/uL [place] # (Auto) 1.0 (0.0-1.0) 10^3/uL Eos # (Auto) 0.0 (0.0-0.7) 10^3/uL Baso # (Auto) 0.0 (0.0-0.1) 10^3/uL Absolute Nucleated RBC 0.00 x10^3/uL Nucleated RBC % 0.0 /100WBC Manual Slide Review Indicated Platelet Estimate DECREASED (<130,000) (NORMAL) RBC Morph Micro Appear 1+ BASO STIPPLING (NORMAL) Sodium (135-145) mmol/L Potassium (3.5-5.0) mmol/L Chloride (101-111) mmol/L Carbon Dioxide (21-32) mmol/L Anion Gap (6-13) BUN (6-20) mg/dL Creatinine (0.6-1.2) mg/dL Estimated GFR (MDRD) (>89) Glucose (70-100) mg/dL Calcium (8.5-10.3) mg/dL Phosphorus (2.5-4.6) mg/dL Magnesium (1.7-2.8) mg/dL Total Bilirubin (0.2-1.0) mg/dL AST (10-42) IU/L ALT (10-60) IU/L Alkaline Phosphatase (42-121) IU/L Total Protein (6.7-8.2) g/dL Albumin (3.2-5.5) g/dL Globulin (2.1-4.2) g/dL Albumin/Globulin Ratio (1.0-2.2) Blood Type A POSITIVE Blood Type Recheck A POSITIVE Antibody Screen NEGATIVE Crossmatch IS Only See Detail 05/01/18 Range/Units 04:55 WBC (4.8-10.8) x10^3/uL RBC (4.70-6.10) 10^6/uL Hgb (14.0-18.0) g/dL Hct (42.0-52.0) % MCV (80.0-94.0) fL MCH (27.0-31.0) pg MCHC (32.0-36.0) g/dL RDW (12.0-15.0) % Plt Count (130-450) 10^3/uL MPV (7.4-11.4) fL Neut # (Auto) (1.5-6.6) 10^3/uL Lymph # (Auto) (1.5-3.5) 10^3/uL [place] # (Auto) (0.0-1.0) 10^3/uL Eos # (Auto) (0.0-0.7) 10^3/uL Baso # (Auto) (0.0-0.1) 10^3/uL Absolute Nucleated RBC x10^3/uL Nucleated RBC % /100WBC Manual Slide Review Platelet Estimate (NORMAL) RBC Morph Micro Appear (NORMAL) Sodium 128 L (135-145) mmol/L Potassium 4.0 (3.5-5.0) mmol/L Chloride 99 L (101-111) mmol/L Carbon Dioxide 24 (21-32) mmol/L Anion Gap 5.0 L (6-13) BUN 30 H (6-20) mg/dL Creatinine 1.1 (0.6-1.2) mg/dL Estimated GFR (MDRD) 65 L (>89) Glucose 126 H (70-100) mg/dL Calcium 7.1 L (8.5-10.3) mg/dL Phosphorus 3.0 (2.5-4.6) mg/dL Magnesium 1.6 L (1.7-2.8) mg/dL Total Bilirubin 0.7 (0.2-1.0) mg/dL AST 19 (10-42) IU/L ALT 16 (10-60) IU/L Alkaline Phosphatase 27 L (42-121) IU/L Total Protein 4.2 L (6.7-8.2) g/dL Albumin 2.1 L (3.2-5.5) g/dL Globulin 2.1 (2.1-4.2) g/dL Albumin/Globulin Ratio 1.0 (1.0-2.2) Blood Type Blood Type Recheck Antibody Screen Crossmatch IS Only ABX Reporting Has patient been on IV antibiotics over the past 48 hours?: No Assessment/Plan - Problem List (1) Intertrochanteric fracture of left femur Impression: (1) Intertrochanteric fracture of left femur Conclusion/Plan: 05/01 This is day one status post of left hip repair, will follow up orthopedics PT/OT pain control Lovenox for DVT prophylaxis post operative plan d/c pt to SNF on Friday after released by orthopedics The patient has what appeared to be a mechanical fall at home and was unable to get up. He presented with a shortened and externally rotated left lower extremity. The patient was found to have a displaced left intertrochanteric fracture. The patient has no history of ischemic heart disease, congestive heart failure, CVA, insulin-dependent diabetes or chronic kidney disease. The patient is not currently having any symptoms of angina or increasing shortness of breath. The patient's revised cardiac risk index for preoperative risk places him at a 0.4% risk of major cardiac event during surgery. Plan: IV fluids Pain control with Tylenol, oxycodone and IV morphine Bedrest Orthopedic surgery consult for repair of left femur fracture PT consultation Start Lovenox for DVT prophylaxis post operative (2) Alcohol abuse Conclusion/Plan: 05/01 continue CIAW protocol switch to PO of B1, folic acid, multiple vitamin, replacement of mag Ativan as needed for withdrawal The patient does have a history of alcohol abuse and has been drinking more recently given recent stressors. The patient drinks about 1 large bottle of wine a night. The patient however has not drank for over 48 hours. The patient was hospitalized at [facility] and did not have any active withdrawals. The patient however was significantly dehydrated on presentation to [facility]. And he continues to be dehydrated on presentation here. The patient does have some hypomagnesemia, hypokalemia, hyponatremia and also has a mildly elevated bilirubin. It is likely that the patient does have some damage to his liver but at this point does not have any signs or symptoms of ongoing cirrhosis. Plan: Patient was counseled on the need to quit work at least cut down drinking Patient will be placed on alcohol withdrawal protocol while he is hospitalized IV thiamine, multivitamin, folic acid and magnesium Ativan as needed for withdrawal. (3) Hyponatremia Conclusion/Plan: 05/01 Na 128 continue IV of NS daily lab check The patient has significant hyponatremia with a sodium of 127. The patient does appear to be dry on examination and was recently hospitalized at [facility] for dehydration and alcohol abuse. The patient appears to be dry on examination and likely has hypovolemic hyponatremia. The patient will be treated with IV fluids and we will continue to monitor his sodium. (4) Hypokalemia Conclusion/Plan: resolved The patient does have hypokalemia on presentation with a potassium of 3.1. The patient appears to be dry and was recently admitted to [facility] for dehydration. The patient was having nausea and vomiting prior to that hospitalization and has been drinking alcohol more and more recently. The patient was treated at [facility] but continues to have hypokalemia. Patient will get potassium replacement prior to surgery and we will recheck his potassium in the morning. (5) Hypomagnesemia Conclusion/Plan: 05/01 Mag is 1.6, will continue replacement with IV and PO daily check again The patient has a history of alcohol abuse and has been dehydrated recently. The patient on presentation has a magnesium of 1.4. Patient will get IV magnesium replacement and we will recheck his magnesium in the morning. (6) Hypertension Conclusion/Plan: Patient has a history of hypertension which is being treated with losartan and spironolactone due to history of mild pulmonary hypertension. The patient has controlled blood pressure on presentation and will be continued on his home antihypertensive medications. (7) Depression Conclusion/Plan: Patient has a history of depression and anxiety and is on citalopram and Xanax at home. The patient will be continued on both of these medications while he is hospitalized. Currently the patient's mood appears to be stable. (8) Pulmonary hypertension Conclusion/Plan: The patient has a history of mild pulmonary hypertension and is currently asymptomatic. The patient seems to be stable from the standpoint of his pulmonary hypertension at this time. The patient is on spironolactone and will be continued on this medication while he is hospitalized. (9) Aortic stenosis Conclusion/Plan: The patient has moderate aortic stenosis on echocardiogram however the patient is asymptomatic. The patient has no worsening shortness of breath or decreased exercise tolerance. The patient has no chest pain. He does have murmur on examination but otherwise is stable. Patient will need to continue to have this monitored yearly as an outpatient (10) anemia pt's HGB 6.8 today, may due to acute blood loss in operation transfusion of 2 unit blood H&H, continue to monitor Qualifiers: Encounter type: initial encounter Fracture type: closed Fracture alignment: displaced Qualified Code(s): S72.142A - Displaced intertrochanteric fracture of left femur, initial encounter for closed fracture
[2018-05-01] MEDS: MAGNESIUM OXIDE 400 MG TABLET PO SCH (13:37)
--- NOTE | 2018-05-01 16:02 | XRAY Report ---
Procedure Date: 05/01/2018 Accession Number: [id number] / [id number] Procedure: XR - Chest 1 View X-Ray CPT Code: 11067 FULL RESULT: EXAM: Chest 1 View X-Ray DATE: 05/01/2018 1:42 PM CLINICAL HISTORY: cough COMPARISON: 11/05/2017. TECHNIQUE: Single view of the chest. FINDINGS: Lungs/Pleura: No focal opacities evident. No pneumothorax or pleural effusion. Mediastinum: Within exam limitations, cardiomediastinal contour is normal. Other: None. IMPRESSION: Normal single view chest. [facility]
[2018-05-01 19:18] LABS: HGB - HEMOGLOBIN 8.5 g/dL (14.0-18.0)
[2018-05-01] MEDS: MORPHINE 2 MG/ML SYRINGE IVP PRN (20:01)
[2018-05-01] MEDS: TEMAZEPAM 15 MG CAPSULE PO SCH (20:01)
[2018-05-02] MEDS: SODIUM CHLORIDE FLUSH 0.9% 10 ML SYRINGE IVP SCH ×7 (00:12→23:36)
[2018-05-02] MEDS: NS W/20 MEQ KCL 1,000 ML IV SCH ×2 (02:34→15:54)
[2018-05-02 05:43] LABS: BASOPHILS % (AUTO) 0.2 %; EOSINOPHILS # (AUTO) 0.1 10^3/uL (0.0-0.7); EOSINOPHILS % (AUTO) 1.8 %; HGB - HEMOGLOBIN 8.9 g/dL (14.0-18.0); LYMPHOCYTES # (AUTO) 3.4 10^3/uL (1.5-3.5); LYMPHOCYTES % (AUTO) 41.7 %; MEAN CORPUSCULAR HEMOGLOBIN 35.9 pg (27.0-31.0); MEAN CORPUSCULAR HGB CONC 33.8 g/dL (32.0-36.0); MEAN CORPUSCULAR VOLUME 106.4 fL (80.0-94.0); MEAN PLATELET VOLUME 8.1 fL (7.4-11.4); MONOCYTES # (AUTO) 1.1 10^3/uL (0.0-1.0); MONOCYTES % (AUTO) 13.9 %; NEUTROPHILS # (AUTO) 3.4 10^3/uL (1.5-6.6); NEUTROPHILS % (AUTO) 42.4 %; PLT - PLATELET COUNT 84 10^3/uL (130-450); RED BLOOD COUNT 2.48 10^6/uL (4.70-6.10); RED CELL DISTRIBUTION WIDTH 23.7 % (12.0-15.0); WHITE BLOOD COUNT 8.1 x10^3/uL (4.8-10.8)
[2018-05-02 05:49] LABS: ALBUMIN 2.4 g/dL (3.2-5.5); BILIRUBIN,TOTAL 1.5 mg/dL (0.2-1.0); CALCIUM 7.6 mg/dL (8.5-10.3); CREATININE 0.8 mg/dL (0.6-1.2); MAGNESIUM 1.6 mg/dL (1.7-2.8); PHOSPHORUS 2.6 mg/dL (2.5-4.6); TOTAL PROTEIN 4.7 g/dL (6.7-8.2)
[2018-05-02 07:08] LABS: PLATELET ESTIMATE, MANUAL DECREASED (<130,000) (NORMAL)
[2018-05-02] MEDS ORDERED: MAGNESIUM SULFATE 1 GM in SODIUM CHLORIDE 0.9% 50 ML IV ONE (07:34)
[2018-05-02] MEDS ORDERED: CALCIUM GLUCONATE 1,000 MG in SODIUM CHLORIDE 0.9% 50 ML IV ONE (07:35)
[2018-05-02] MEDS: MULTIVITAMIN TABLET PO SCH (08:09)
[2018-05-02] MEDS: FAMOTIDINE 20 MG TABLET PO SCH (08:09)
[2018-05-02] MEDS: FOLIC ACID 1 MG TABLET PO SCH (08:09)
[2018-05-02] MEDS: THIAMINE 100 MG TABLET PO SCH (08:09)
[2018-05-02] MEDS: LOSARTAN 50 MG TABLET PO SCH (08:09)
[2018-05-02] MEDS: CITALOPRAM 10 MG TABLET PO SCH (08:09)
[2018-05-02] MEDS: CALCIUM CITRATE 250 MG TABLET PO SCH ×2 (08:09→09:37)
[2018-05-02] MEDS: POLYETHYLENE GLYCOL 3350 17 GM PACKET PO SCH (08:09)
[2018-05-02] MEDS: MAGNESIUM OXIDE 400 MG TABLET PO SCH (08:09)
[2018-05-02] MEDS: SPIRONOLACTONE 25 MG TABLET PO SCH (08:09)
[2018-05-02] MEDS: ENOXAPARIN 40 MG/0.4 ML SYRINGE SUBQ SCH (08:10)
[2018-05-02] MEDS: KETOROLAC 15 MG/ML VIAL IVP PRN (11:05)
--- NOTE | 2018-05-02 11:27 | PROVIDER PROGRESS NOTE ---
Subjective - Prog Note Date Prog Note Date: 05/02/18 - Subjective Pt reports feeling: Improved Subjective: pt report he has pain when he tries to move at the surgery site. He denies fever , chill, cough, SOB, chest pain. Current Medications - Current Medications Current Medications: Active Medications Acetaminophen (Tylenol) 650 mg PO Q4HR PRN PRN Reason: Pain 1 to 4 Alprazolam (Xanax) 0.5 mg PO BID PRN PRN Reason: Anxiety Last Admin: 05/01/18 01:37 Dose: 0.5 mg Calcium Citrate () 250 mg PO DAILY ON LICENSE OF [facility] Last Admin: 05/02/18 09:37 Dose: Not Given Citalopram Hydrobromide (Celexa) 20 mg PO DAILY ON LICENSE OF [facility] Last Admin: 05/02/18 08:09 Dose: 20 mg Enoxaparin Sodium (Lovenox) 40 mg SUBQ DAILY ON LICENSE OF [facility] Last Admin: 05/02/18 08:10 Dose: Not Given Famotidine (Pepcid) 20 mg PO DAILY ON LICENSE OF [facility] Last Admin: 05/02/18 08:09 Dose: 20 mg Folic Acid () 1 mg PO DAILY ON LICENSE OF [facility] Last Admin: 05/02/18 08:09 Dose: 1 mg Potassium Chloride/Sodium Chloride (Normal Saline 0.9% W/20 Meq Kcl) 1,000 mls @ 75 mls/hr IV .[id number] ON LICENSE OF [facility] Last Admin: 05/02/18 02:34 Dose: 75 mls/hr Ketorolac Tromethamine (Toradol Inj (15mg)) 15 mg IVP Q6HR PRN PRN Reason: PAIN Stop: 05/07/18 10:48 Last Admin: 05/02/18 11:05 Dose: 15 mg Lorazepam (Ativan Inj (Vial)) 1 mg IVP Q30M PRN; Protocol PRN Reason: CIWA >8 Losartan Potassium (Cozaar) 50 mg PO DAILY ON LICENSE OF [facility] Last Admin: 05/02/18 08:09 Dose: 50 mg Magnesium Oxide (Mag Ox) 400 mg PO DAILYWM ON LICENSE OF [facility] Last Admin: 05/02/18 08:09 Dose: 400 mg Morphine Sulfate (Morphine) 2 mg IVP Q2H PRN PRN Reason: Pain 8 to 10 Last Admin: 05/01/18 20:01 Dose: 2 mg Multivitamins (Theragran) 1 tab PO DAILYWM ON LICENSE OF [facility] Last Admin: 05/02/18 08:09 Dose: 1 tab Ondansetron HCl (Zofran Inj) 4 mg IVP Q6HR PRN PRN Reason: Nausea / Vomiting Oxycodone HCl (Roxicodone) 5 mg PO Q4HR PRN PRN Reason: Pain 5 to 7 Last Admin: 05/01/18 12:38 Dose: 5 mg Oxycodone HCl (Roxicodone) 10 mg PO Q4HR PRN PRN Reason: Pain 8 to 10 Last Admin: 05/01/18 16:25 Dose: 10 mg Polyethylene Glycol (Miralax) 17 gm PO DAILY ON LICENSE OF [facility] Last Admin: 05/02/18 08:09 Dose: 17 gm Prochlorperazine Edisylate (Compazine Inj) 10 mg IVP Q6HR PRN PRN Reason: Nausea / Vomiting Promethazine HCl (Phenergan Inj) 25 mg IM Q6HR PRN PRN Reason: Nausea / Vomiting Sodium Chloride (Normal Saline Flush 0.9%) 10 ml IVP PRN PRN PRN Reason: NEEDED PER PROVIDER ORDERS Last Admin: 04/30/18 06:21 Dose: 10 ml Sodium Chloride (Normal Saline Flush 0.9%) 10 ml IVP 0100,0900,1700 ON LICENSE OF [facility] Last Admin: 05/02/18 08:09 Dose: 10 ml Spironolactone (Aldactone) 25 mg PO DAILY ON LICENSE OF [facility] Last Admin: 05/02/18 08:09 Dose: 25 mg Temazepam (Restoril) 15 mg PO QPM ON LICENSE OF [facility] Last Admin: 05/01/18 20:01 Dose: 15 mg Thiamine HCl (Vitamin B-1) 100 mg PO DAILY ON LICENSE OF [facility] Last Admin: 05/02/18 08:09 Dose: 100 mg ALPRAZolam [Alprazolam] 0.5 mg PO BID PRN 02/10/18 Citalopram Hydrobromide [Citalopram HBr] 20 mg PO DAILY 02/10/18 Losartan Potassium 50 mg PO DAILY 02/10/18 Cholecalciferol (Vitamin D3) [Vitamin D3] 1,000 unit PO DAILY 05/01/18 Objective - Vital Signs/Intake & Output Reviewed Vital Signs: Yes Vital Signs: Vital Signs x48h Temp Pulse Resp BP Pulse Ox 05/02/18 08:00 36.7 C 94 20 140/93 H 98 Intake & Output: Intake & Output 04/29/18 04/30/18 05/01/18 05/02/18 23:59 23:59 23:59 23:59 Intake Total 2524.808 3622.392 1592 Output Total 300 550 800 Balance -300 9778.303 8974.392 1592 - Objective General Appearance: positive: No acute distress, Alert. negative: Lethargic Eyes Bilateral: positive: Normal inspection, PERRL, No lid inflammation, Conjunctivae nml ENT: positive: ENT inspection nml, Pharynx nml, No signs of dehydration. negative: Purulent nasal drainage, Pharyngeal erythema, Oral lesions Neck: positive: Nml inspection, Thyroid nml, No JVD, Trachea midline. negative : Thyromegaly, Lymphadenopathy (R), Lymphadenopathy (L), Stiff neck, Swelling/ bruising, Tracheal deviation Respiratory: positive: Chest non-tender, No respiratory distress, Breath sounds nml. negative: Wheezes, Rales, Rhonchi Cardiovascular: positive: Regular rate & rhythm, No murmur, No gallop. negative : Irregularly irregular, Extrasystoles, Tachycardia, Bradycardia, JVD present, Systolic murmur, Diastolic murmur Peripheral Pulses: 2+ Radial (R), 2+ Radial (L), 2+ Dorsalis pedis (R), 2+ Dorsalis pedis (L) Abdomen: positive: Non-tender, No organomegaly, Nml bowel sounds, No distention. negative: Tenderness, Guarding, Rebound Back: positive: Nml inspection. negative: CVA tenderness (R), CVA tenderness (L ) Skin: positive: Color nml, No rash, Warm, Dry. negative: Cyanosis, Diaphoresis , Pallor Extremities: positive: Non-tender. negative: Calf tenderness, Joint swelling, Pio's sign/cords Neurologic/Psychiatric: positive: Oriented x3, Sensation nml, Mood/affect nml. negative: Weakness, Sensory loss, Facial droop, Slurred/abnml speech, Depressed mood/affect - Lab Results Fish Bones: 05/02/18 05:00 05/02/18 05:00 Other Labs: Lab Results x24hrs 07/28/18 07/28/18 07/27/18 Range/Units 05:00 05:00 19:10 WBC 8.1 (4.8-10.8) x10^3/uL RBC 2.48 L (4.70-6.10) 10^6/uL Hgb 8.9 L 8.5 L (14.0-18.0) g/dL Hct 26.4 L 25.4 L (42.0-52.0) % MCV 106.4 H (80.0-94.0) fL MCH 35.9 H (27.0-31.0) pg MCHC 33.8 (32.0-36.0) g/dL RDW 23.7 H (12.0-15.0) % Plt Count 84 L (130-450) 10^3/uL MPV 8.1 (7.4-11.4) fL Neut # (Auto) 3.4 (1.5-6.6) 10^3/uL Lymph # (Auto) 3.4 (1.5-3.5) 10^3/uL [place] # (Auto) 1.1 H (0.0-1.0) 10^3/uL Eos # (Auto) 0.1 (0.0-0.7) 10^3/uL Baso # (Auto) 0.0 (0.0-0.1) 10^3/uL Absolute Nucleated RBC 0.01 x10^3/uL Nucleated RBC % 0.1 /100WBC Manual Slide Review Indicated Platelet Estimate DECREASED (<130,000) (NORMAL) RBC Morph Micro Appear 1+ HYPOCHROMASIA (NORMAL) Sodium 130 L (135-145) mmol/L Potassium 4.5 (3.5-5.0) mmol/L Chloride 100 L (101-111) mmol/L Carbon Dioxide 26 (21-32) mmol/L Anion Gap 4.0 L (6-13) BUN 19 (6-20) mg/dL Creatinine 0.8 (0.6-1.2) mg/dL Estimated GFR (MDRD) 94 (>89) Glucose 105 H (70-100) mg/dL Calcium 7.6 L (8.5-10.3) mg/dL Phosphorus 2.6 (2.5-4.6) mg/dL Magnesium 1.6 L (1.7-2.8) mg/dL Total Bilirubin 1.5 H (0.2-1.0) mg/dL AST 36 (10-42) IU/L ALT 19 (10-60) IU/L Alkaline Phosphatase 36 L (42-121) IU/L Total Protein 4.7 L (6.7-8.2) g/dL Albumin 2.4 L (3.2-5.5) g/dL Globulin 2.3 (2.1-4.2) g/dL Albumin/Globulin Ratio 1.0 (1.0-2.2) Blood Type Antibody Screen Crossmatch IS Only 05/01/18 Range/Units 06:15 WBC (4.8-10.8) x10^3/uL RBC (4.70-6.10) 10^6/uL Hgb (14.0-18.0) g/dL Hct (42.0-52.0) % MCV (80.0-94.0) fL MCH (27.0-31.0) pg MCHC (32.0-36.0) g/dL RDW (12.0-15.0) % Plt Count (130-450) 10^3/uL MPV (7.4-11.4) fL Neut # (Auto) (1.5-6.6) 10^3/uL Lymph # (Auto) (1.5-3.5) 10^3/uL [place] # (Auto) (0.0-1.0) 10^3/uL Eos # (Auto) (0.0-0.7) 10^3/uL Baso # (Auto) (0.0-0.1) 10^3/uL Absolute Nucleated RBC x10^3/uL Nucleated RBC % /100WBC Manual Slide Review Platelet Estimate (NORMAL) RBC Morph Micro Appear (NORMAL) Sodium (135-145) mmol/L Potassium (3.5-5.0) mmol/L Chloride (101-111) mmol/L Carbon Dioxide (21-32) mmol/L Anion Gap (6-13) BUN (6-20) mg/dL Creatinine (0.6-1.2) mg/dL Estimated GFR (MDRD) (>89) Glucose (70-100) mg/dL Calcium (8.5-10.3) mg/dL Phosphorus (2.5-4.6) mg/dL Magnesium (1.7-2.8) mg/dL Total Bilirubin (0.2-1.0) mg/dL AST (10-42) IU/L ALT (10-60) IU/L Alkaline Phosphatase (42-121) IU/L Total Protein (6.7-8.2) g/dL Albumin (3.2-5.5) g/dL Globulin (2.1-4.2) g/dL Albumin/Globulin Ratio (1.0-2.2) Blood Type A POSITIVE Antibody Screen NEGATIVE Crossmatch IS Only See Detail ABX Reporting Has patient been on IV antibiotics over the past 48 hours?: No Assessment/Plan - Problem List (1) Intertrochanteric fracture of left femur Impression: Conclusion/Plan: 05/02, day 2 status post of left hip repair add Toradol for pain control continue PT/OT follow up orthopedics and plan d/c tomorrow 05/01 This is day one status post of left hip repair, will follow up orthopedics PT/OT pain control Lovenox for DVT prophylaxis post operative plan d/c pt to SNF on Friday after released by orthopedics The patient has what appeared to be a mechanical fall at home and was unable to get up. He presented with a shortened and externally rotated left lower extremity. The patient was found to have a displaced left intertrochanteric fracture. The patient has no history of ischemic heart disease, congestive heart failure, CVA, insulin-dependent diabetes or chronic kidney disease. The patient is not currently having any symptoms of angina or increasing shortness of breath. The patient's revised cardiac risk index for preoperative risk places him at a 0.4% risk of major cardiac event during surgery. Plan: IV fluids Pain control with Tylenol, oxycodone and IV morphine Bedrest Orthopedic surgery consult for repair of left femur fracture PT consultation Start Lovenox for DVT prophylaxis post operative (2) Alcohol abuse Conclusion/Plan: 05/02, continue CIAW protocol continue B1, folic acid, multiple vitamin, replacement of mag Ativan as needed for withdrawal 05/01 continue CIAW protocol switch to PO of B1, folic acid, multiple vitamin, replacement of mag Ativan as needed for withdrawal The patient does have a history of alcohol abuse and has been drinking more recently given recent stressors. The patient drinks about 1 large bottle of wine a night. The patient however has not drank for over 48 hours. The patient was hospitalized at [facility] and did not have any active withdrawals. The patient however was significantly dehydrated on presentation to [facility]. And he continues to be dehydrated on presentation here. The patient does have some hypomagnesemia, hypokalemia, hyponatremia and also has a mildly elevated bilirubin. It is likely that the patient does have some damage to his liver but at this point does not have any signs or symptoms of ongoing cirrhosis. Plan: Patient was counseled on the need to quit work at least cut down drinking Patient will be placed on alcohol withdrawal protocol while he is hospitalized IV thiamine, multivitamin, folic acid and magnesium Ativan as needed for withdrawal. (3) Hyponatremia Conclusion/Plan: 05/02, Na 130. pt had hx of hyponatremia continue IV of NS lab check 05/01 Na 128 continue IV of NS daily lab check The patient has significant hyponatremia with a sodium of 127. The patient does appear to be dry on examination and was recently hospitalized at [facility] for dehydration and alcohol abuse. The patient appears to be dry on examination and likely has hypovolemic hyponatremia. The patient will be treated with IV fluids and we will continue to monitor his sodium. (4) Hypokalemia Conclusion/Plan: resolved The patient does have hypokalemia on presentation with a potassium of 3.1. The patient appears to be dry and was recently admitted to [facility] for dehydration. The patient was having nausea and vomiting prior to that hospitalization and has been drinking alcohol more and more recently. The patient was treated at [facility] but continues to have hypokalemia. Patient will get potassium replacement prior to surgery and we will recheck his potassium in the morning. (5) Hypomagnesemia Conclusion/Plan: 05/01 Mag is 1.6, will continue replacement with IV and PO daily check again The patient has a history of alcohol abuse and has been dehydrated recently. The patient on presentation has a magnesium of 1.4. Patient will get IV magnesium replacement and we will recheck his magnesium in the morning. (6) Hypertension Conclusion/Plan: Patient has a history of hypertension which is being treated with losartan and spironolactone due to history of mild pulmonary hypertension. The patient has controlled blood pressure on presentation and will be continued on his home antihypertensive medications. (7) Depression Conclusion/Plan: Patient has a history of depression and anxiety and is on citalopram and Xanax at home. The patient will be continued on both of these medications while he is hospitalized. Currently the patient's mood appears to be stable. (8) Pulmonary hypertension Conclusion/Plan: The patient has a history of mild pulmonary hypertension and is currently asymptomatic. The patient seems to be stable from the standpoint of his pulmonary hypertension at this time. The patient is on spironolactone and will be continued on this medication while he is hospitalized. (9) Aortic stenosis Conclusion/Plan: The patient has moderate aortic stenosis on echocardiogram however the patient is asymptomatic. The patient has no worsening shortness of breath or decreased exercise tolerance. The patient has no chest pain. He does have murmur on examination but otherwise is stable. Patient will need to continue to have this monitored yearly as an outpatient (10) anemia 05/02, today HGB 8.9 after transfusion, and stable continue lab monitor pt's HGB 6.8 today, may due to acute blood loss in operation transfusion of 2 unit blood H&H, continue to monitor Qualifiers: Encounter type: initial encounter Fracture type: closed Fracture alignment: displaced Qualified Code(s): S72.142A - Displaced intertrochanteric fracture of left femur, initial encounter for closed fracture
[2018-05-02] MEDS: ALPRAZolam 0.25 MG TABLET PO PRN (13:53)
[2018-05-02] MEDS: MORPHINE 2 MG/ML SYRINGE IVP PRN ×3 (15:53→20:22)
--- NOTE | 2018-05-02 20:14 | PROVIDER PROGRESS NOTE ---
Subjective - Prog Note Date Prog Note Date: 05/02/18 Prog Note Time: 08:15 - Subjective Pt reports feeling: Improved (Wants to be mobilized) Objective - Vital Signs/Intake & Output Vital Signs: Vital Signs x48h Temp Pulse Resp BP Pulse Ox 05/02/18 15:33 36.7 C 105 H 20 147/78 H 98 Intake & Output: Intake & Output 04/29/18 04/30/18 05/01/18 05/02/18 23:59 23:59 23:59 23:59 Intake Total 2524.808 3622.392 2712 Output Total 300 550 800 200 Balance -300 4832.553 7240.392 2512 - Objective General Appearance: positive: No acute distress Eyes Bilateral: positive: Normal inspection Extremities: positive: Nml appearance, Other (No shortening or rotational problems) Neurologic/Psychiatric: positive: Oriented x3, Other (Sensation normal) - Lab Results Fish Bones: 05/02/18 05:00 05/02/18 05:00 Other Labs: Lab Results x24hrs 05/02/18 05/02/18 Range/Units 05:00 05:00 WBC 8.1 (4.8-10.8) x10^3/uL RBC 2.48 L (4.70-6.10) 10^6/uL Hgb 8.9 L (14.0-18.0) g/dL Hct 26.4 L (42.0-52.0) % MCV 106.4 H (80.0-94.0) fL MCH 35.9 H (27.0-31.0) pg MCHC 33.8 (32.0-36.0) g/dL RDW 23.7 H (12.0-15.0) % Plt Count 84 L (130-450) 10^3/uL MPV 8.1 (7.4-11.4) fL Neut # (Auto) 3.4 (1.5-6.6) 10^3/uL Lymph # (Auto) 3.4 (1.5-3.5) 10^3/uL [place] # (Auto) 1.1 H (0.0-1.0) 10^3/uL Eos # (Auto) 0.1 (0.0-0.7) 10^3/uL Baso # (Auto) 0.0 (0.0-0.1) 10^3/uL Absolute Nucleated RBC 0.01 x10^3/uL Nucleated RBC % 0.1 /100WBC Manual Slide Review Indicated Platelet Estimate DECREASED (<130,000) (NORMAL) RBC Morph Micro Appear 1+ HYPOCHROMASIA (NORMAL) Sodium 130 L (135-145) mmol/L Potassium 4.5 (3.5-5.0) mmol/L Chloride 100 L (101-111) mmol/L Carbon Dioxide 26 (21-32) mmol/L Anion Gap 4.0 L (6-13) BUN 19 (6-20) mg/dL Creatinine 0.8 (0.6-1.2) mg/dL Estimated GFR (MDRD) 94 (>89) Glucose 105 H (70-100) mg/dL Calcium 7.6 L (8.5-10.3) mg/dL Phosphorus 2.6 (2.5-4.6) mg/dL Magnesium 1.6 L (1.7-2.8) mg/dL Total Bilirubin 1.5 H (0.2-1.0) mg/dL AST 36 (10-42) IU/L ALT 19 (10-60) IU/L Alkaline Phosphatase 36 L (42-121) IU/L Total Protein 4.7 L (6.7-8.2) g/dL Albumin 2.4 L (3.2-5.5) g/dL Globulin 2.3 (2.1-4.2) g/dL Albumin/Globulin Ratio 1.0 (1.0-2.2) Assessment/Plan - Problem List (1) Intertrochanteric fracture of left femur Qualifiers: Encounter type: initial encounter Fracture type: closed Fracture alignment: displaced Qualified Code(s): S72.142A - Displaced intertrochanteric fracture of left femur, initial encounter for closed fracture
[2018-05-02] MEDS: TEMAZEPAM 15 MG CAPSULE PO SCH (20:22)
[2018-05-03] MEDS: NS W/20 MEQ KCL 1,000 ML IV SCH (04:56)
[2018-05-03 05:45] LABS: BASOPHILS % (AUTO) 0.3 %; EOSINOPHILS # (AUTO) 0.2 10^3/uL (0.0-0.7); EOSINOPHILS % (AUTO) 1.9 %; LYMPHOCYTES # (AUTO) 3.9 10^3/uL (1.5-3.5); LYMPHOCYTES % (AUTO) 47.4 %; MEAN CORPUSCULAR HEMOGLOBIN 36.3 pg (27.0-31.0); MEAN CORPUSCULAR HGB CONC 34.1 g/dL (32.0-36.0); MEAN CORPUSCULAR VOLUME 106.3 fL (80.0-94.0); MEAN PLATELET VOLUME 8.5 fL (7.4-11.4); MONOCYTES # (AUTO) 1.2 10^3/uL (0.0-1.0); MONOCYTES % (AUTO) 14.4 %; PLT - PLATELET COUNT 115 10^3/uL (130-450); RED BLOOD COUNT 2.47 10^6/uL (4.70-6.10); WHITE BLOOD COUNT 8.3 x10^3/uL (4.8-10.8)
[2018-05-03 05:47] LABS: RED CELL DISTRIBUTION WIDTH 23.1 % (12.0-15.0)
[2018-05-03 05:52] LABS: ALBUMIN 2.5 g/dL (3.2-5.5); BILIRUBIN,TOTAL 1.7 mg/dL (0.2-1.0); CALCIUM 7.8 mg/dL (8.5-10.3); CREATININE 0.8 mg/dL (0.6-1.2); MAGNESIUM 1.5 mg/dL (1.7-2.8); PHOSPHORUS 2.2 mg/dL (2.5-4.6); TOTAL PROTEIN 5.1 g/dL (6.7-8.2)
[2018-05-03] MEDS ORDERED: MAGNESIUM SULFATE 2 GRAM 2 GM/50 ML BAG IV ONE (07:33)
[2018-05-03 07:48] VITALS: BP 160/96
[2018-05-03] MEDS ORDERED: SODIUM CHLORIDE 0.9% 1,000 ML IV SCH (08:00)
[2018-05-03] MEDS ORDERED: SODIUM CHLORIDE 1 GM TABLET PO SCH ×2 (08:00)
[2018-05-03] MEDS: POLYETHYLENE GLYCOL 3350 17 GM PACKET PO SCH (08:19)
[2018-05-03] MEDS: SPIRONOLACTONE 25 MG TABLET PO SCH (08:23)
[2018-05-03] MEDS: FOLIC ACID 1 MG TABLET PO SCH (08:23)
[2018-05-03] MEDS: THIAMINE 100 MG TABLET PO SCH (08:23)
[2018-05-03] MEDS: CALCIUM CITRATE 250 MG TABLET PO SCH (08:23)
[2018-05-03] MEDS: MAGNESIUM OXIDE 400 MG TABLET PO SCH (08:23)
[2018-05-03] MEDS: FAMOTIDINE 20 MG TABLET PO SCH (08:23)
[2018-05-03] MEDS: MULTIVITAMIN TABLET PO SCH (08:23)
[2018-05-03] MEDS: LOSARTAN 50 MG TABLET PO SCH (08:23)
[2018-05-03] MEDS: oxyCODONE 5 MG TABLET PO PRN (08:27)
[2018-05-03] MEDS: ENOXAPARIN 40 MG/0.4 ML SYRINGE SUBQ SCH (08:27)
[2018-05-03] MEDS: SODIUM CHLORIDE FLUSH 0.9% 10 ML SYRINGE IVP SCH (08:27)
[2018-05-03] MEDS: KETOROLAC 15 MG/ML VIAL IVP PRN (08:27)
[2018-05-03] MEDS: CITALOPRAM 10 MG TABLET PO SCH (08:27)
[2018-05-03] MEDS ORDERED: SENNA 8.6 MG TABLET PO SCH (09:00)
[2018-05-03] MEDS ORDERED: DOCUSATE SODIUM 250 MG CAPSULE PO SCH (09:00)
--- NOTE | 2018-05-03 11:09 | Discharge Plan ---
"Discharge Plan for SNF / [facility] - DC Plan and Transition Orders Disposition: 03 SNF DC/Xfer Condition: Poor SNF Transition Orders: Admit to: [[facility]] under the care of [Doctor Manjit Hampton] Discharge Diagnosis: [status post of left hip repair, alcohol abuse, hypokalemia/hyponatremia/ hypomagnesemia, HTN, pulmonary hypertension ] Medicare Certification: I certify that [facility] is medically necessary on a continuing basis for any of the conditions for which she/he is receiving care during hospitalization. Notify PCP of admission and forward orders to primary provider for signature. Weight on admission and [77kg]. Call PCP immediately if weight increases by [4 ] pounds or if patient develops dyspnea, chest pain/tightness or edema. House Bowel Program: [Yes] If no BM after 2 days, nurse may give M.O.M. 30ml PO PRN and /or ducolax Supp 1 [place] and /or NEL 250mg P.O., and/or senna 1-2 tabs PO. On day 3 nurse may give repeat above order until residents constipation is resolved. Immunizations: Annual Influenza Vaccine: [Yes]. (between Jun 06 and January 03.) Unless allergy or already given Two-Step PPD: [Yes] per [facility] [id number] or appropriate documentation of approved exceptions Treatments & Other Orders: [Pt may follow up Dr. Hampton when he is arrival to [facility], continue PT/OT, follow up orthopedics office in two weeks for Xray and removal of sutures/britta] Oxygen Orders: [PRN] Lab Tests or X-Rays Orders: [followup PCP and orthopedics] Orthopedic Orders: [follow up orthopedics office in two weeks for Xray and removal of sutures/britta]. Medications: PLEASE REFER TO THE DISCHARGE MEDICATION LIST. Insulin Orders? [No] Diagnosis: Diabetes Initiate hypo and hyperglycemia protocols for BG <70 and BG >375. May check BG prn for signs/symptoms of dysglycemia. Frequency of BG checks: [AC/Meal/HS] Basal Insulin: [] Lantus 100 units / ml inject subq as follows: [] [] Other: [] Correction Insulin: - Select the type of insulin below [Choose: Novolog/Humalog]100 units /ml insulin inject subq per orders indicate below [] LOW DOSE [] MODERATE DOSE [] MODERATE/HIGH DOSE [] HIGH DOSE GB UNITS GB UNITS GB UNITS GB UNITS 61-140 0 UNITS 61-140 0 UNITS 61-140 0 UNITS 61-140 0 UNITS 141-175 1 UNITS 141-175 1 UNITS 141-175 2 UNITS 141-175 3 UNITS 176-225 2 UNITS 176-225 3 UNITS 176-225 4 UNITS 176-225 5 UNITS 226-275 3 UNITS 226-275 5 UNITS 226-275 6 UNITS 226-275 7 UNITS 276-325 4 UNITS 276-325 7 UNITS 276-325 8 UNITS 276-325 9 UNITS 326-375 5 UNITS 326-375 9 UNITS 326-375 10 UNITS 326-375 11 UNITS >375 CONTACT MD >375 CONTACT MD >375 CONTACT MD >375 CONTACT MD Custom Dosing: [Choose: None/Novolog/Humalog] 100 units/ml Insulin inject subq as follows: GB Units 61-140 [] Units 141-175 [] Units 176-225 [] Units 226-275 [] Units 276-325 []Units 326-375 [] Units >375 Contact MD Allergies and Adverse Reactions: Allergies Allergy/AdvReac Type Severity Reaction Status Date / Time No Known Drug Allergies Allergy Verified 04/02/13 13:03 - Medications New Prescriptions: oxyCODONE [Roxicodone] 5 mg PO Q4HR PRN #20 tablet PRN Reason: Pain 5 to 7 Aspirin 325 mg PO BID #20 tablet Folic Acid 1 mg PO DAILY #10 tablet Magnesium Oxide [Mag Ox] 400 mg PO DAILYWM #10 tablet Multivitamin [Theragran] 1 tab PO DAILYWM #10 tablet Thiamine [Vitamin B-1] 100 mg PO DAILY #10 tablet - Diet Type: Geriatric Texture: Regular Liquids: Thin May have monthly special meal: Yes - Therapies | Activity Therapy: Evaluation | Treat if indicated: PT, OT Rehabilitation Potential: Maximize functional status Activity: Activity as Tolerated Weight Bearing: Other (bearing weight at left side low extremity as tolerated) Additional Instructions: Pt may follow up Dr. Hampton when he is arrival to [facility], continue PT/OT, follow up orthopedics office in two weeks for Xray and removal of sutures/ britta"
--- NOTE | 2018-05-03 11:36 | DISCHARGE SUMMARY ---
Discharge Summary Discharge Date: 05/03/18 Discharging Provider: RIVERA Primary Care Provider: DR. Hampton Condition at Discharge: Poor Discharge Disposition: SNF DC/Xfer Discharge Facility Name: [facility] - DIAGNOSES Admission Diagnoses: (1) Intertrochanteric fracture of left femur (2) Alcohol abuse (3) Hyponatremia (4) Hypokalemia (5) Hypomagnesemia (6) Hypertension (7) Depression (8) Pulmonary hypertension (9) Aortic stenosis Discharge Diagnoses with Status of Each Condition: (1) Intertrochanteric fracture of left femur I called Dr. Hinton, orthopedics, she recommended pt can be discharged to SNF today, with aspirin 325mg bid for 10 days for DVT prophylaxis, and see her at orthopedics office in two weeks. PT/OT recommend pt to be d/c to SNF for further training. Pt is stable, pain when he has movement. Pt continue to have PT/OT in [facility]. (2) Alcohol abuse stable, without significant withdrawal symptoms in hospital course. pt is advised to quit alcohol abuse. (3) Hyponatremia chronic stable, Na is replaced today, continue to be monitor by PCP. advise pt quit alcohol abuse, which will help normalize his electrolytic. (4) Hypokalemia resolved (5) Hypomagnesemia chronic stable, Ma is replaced today, continue to be monitor by PCP (6) Hypertension stable (7) Depression stable (8) Pulmonary hypertension stable, followup PCP (9) Aortic stenosis stable, followup PCP (10) anemia stable, followup PCP - HPI History of Present Illness: refer from Dr. Camp's HPI for pt as the following: Patient is a 72-year-old gentleman with a past medical history significant for chronic lymphocytic leukemia currently stable and being monitored every 6 months , history of prostate cancer status post treatment, history of melanoma status post resection, the patient did have a recent echocardiogram done here at [facility] which showed a normal ejection fraction, moderate aortic stenosis and mild pulmonary hypertension but patient has been asymptomatic, depression, anxiety, PTSD and alcohol abuse who presented to the emergency department with a chief complaint of a fall and left leg pain. The patient states that over the last week he has been having symptoms of abdominal pain, nausea, vomiting and decreased oral intake. He states that he went to see his primary care physician about 3 days ago and appear to be dehydrated and was sent to the emergency department at [facility]. He states that he was diagnosed at [facility] with dehydration and admitted there for 2 nights. The patient does admit to drinking 3-4 glasses or one large bottle of wine nightly. He states that he has been under a great deal of stress recently as his ex- is moving with his stepson next door. He states that he has been drinking more recently. He states that over the 2 nights at [facility] he was hydrated with IV fluids and had electrolytes replaced. He states that he was significantly weaker than normal and was seen by physical therapy. Physical therapy had not completely cleared him for discharge however the patient was insistent that he wanted to go home today. Physical therapy did clear him with home PT. The patient states that he had just arrived at home and gotten out of the car when he was walking up to his front door and retrieve the mail. He states that he took a step and thinks that he may have tripped on a rock with his right foot and ended up falling on his left hip. He states that after he fell he had a great deal of pain in his left leg and could not get up. The patient's called paramedics who came to the scene and also to try to help the patient up however the patient had excruciating pain and was unable to ambulate or put any weight on his left leg. At that point he and his decided to come to the emergency department. The patient denies any recent shortness of breath, he states that he has 16 stairs in his home that he does go up and does not become short of breath nor does he have any chest pain. The patient has no history of diabetes, does not take insulin and does not have any history of kidney disease. The patient states that his nausea, vomiting and abdominal pain have resolved. He states he is able to eat and drink fine at this time. The patient denies having gone through any alcohol withdrawal or having had any alcohol withdrawal seizures. Patient denies any headaches, blurred vision, runny nose, sore throat, nasal congestion, difficulty swallowing, fevers, chills, cough, chest pain, shortness of air, orthopnea, PND, increased lower extremity swelling, abdominal pain, nausea, vomiting, diarrhea, constipation, urinary urgency, urinary frequency, dysuria, joint pain, muscle aches, back pain, neck stiffness, recent unintentional weight loss, changes in his appetite, hair loss, skin changes, polyuria, polydipsia or any focal neurologic deficits. On presentation to the emergency department the patient was afebrile and vital signs were all within normal limits. On examination the patient was found to have a externally rotated and shortened left lower extremity suspicious for a hip fracture. The patient underwent routine lab work which did reveal a hyponatremia with a sodium of 127, hypokalemia with a potassium of 3.1 and a hypomagnesemia with a magnesium of 1.4. The patient also had a slight leukocytosis of 12.3 which appears chronic for him due to his CLL. The patient' s urine showed large occult blood and RBCs but was not concerning for an infection. The patient did undergo an x-ray of his left hip which revealed a comminuted, varus angulated left intertrochanteric femur fracture. The emergency room physician contacted the orthopedic surgeon product control and logistics analyst Dr. Forman who asked that the hospitalist team admit the patient and stated that he would see the patient in the morning and likely take him to the OR. - ALLERGIES Allergies/Adverse Reactions: Allergies Allergy/AdvReac Type Severity Reaction Status Date / Time No Known Drug Allergies Allergy Verified 04/02/13 13:03 - MEDICATIONS Home Medications: Ambulatory Orders Medication Instructions Recorded Confirmed ALPRAZolam [Alprazolam] 0.5 mg PO BID PRN 02/10/18 05/01/18 Citalopram Hydrobromide 20 mg PO DAILY 02/10/18 05/01/18 [Citalopram HBr] Losartan Potassium 50 mg PO DAILY 02/10/18 05/01/18 Spironolactone 25 mg PO DAILY #30 tablet 02/13/18 05/01/18 Cholecalciferol (Vitamin D3) 1,000 unit PO DAILY 05/01/18 05/01/18 [Vitamin D3] Aspirin 325 mg PO BID #20 tablet 05/03/18 Folic Acid 1 mg PO DAILY #10 tablet 05/03/18 Magnesium Oxide [Mag Ox] 400 mg PO DAILYWM #10 tablet 05/03/18 Multivitamin [Theragran] 1 tab PO DAILYWM #10 tablet 05/03/18 Thiamine [Vitamin B-1] 100 mg PO DAILY #10 tablet 05/03/18 oxyCODONE [Roxicodone] 5 mg PO Q4HR PRN #20 tablet 05/03/18 - PHYSICAL EXAM AT DISCHARGE General Appearance: positive: No acute distress, Alert. negative: Lethargic Eyes Bilateral: positive: Normal inspection, PERRL, No lid inflammation, Conjunctivae nml ENT: positive: ENT inspection nml, Pharynx nml, No signs of dehydration. negative: Purulent nasal drainage, Pharyngeal erythema, Oral lesions Neck: positive: Nml inspection, Thyroid nml, No JVD, Trachea midline. negative : Thyromegaly, Stiff neck, Carotid bruit, Swelling/bruising, Tracheal deviation Respiratory: positive: Chest non-tender, No respiratory distress, Breath sounds nml. negative: Wheezes, Rales, Rhonchi Cardiovascular: positive: Regular rate & rhythm, No murmur, No gallop. negative : Irregularly irregular, Extrasystoles, Tachycardia, Bradycardia, JVD present, Systolic murmur, Diastolic murmur Peripheral Pulses: positive: 2+ Abdomen: positive: Non-tender, No organomegaly, Nml bowel sounds, No distention. negative: Tenderness, Guarding, Rebound Back: positive: Nml inspection. negative: CVA tenderness (R), CVA tenderness (L ) Skin: positive: Color nml, No rash, Warm, Dry. negative: Cyanosis, Diaphoresis , Pallor Extremities: positive: Non-tender, Nml appearance. negative: Calf tenderness, Joint swelling, Pio's sign/cords Neurologic/Psychiatric: positive: Oriented x3, Sensation nml, Mood/affect nml. negative: Weakness, Sensory loss, Facial droop, Slurred/abnml speech, Depressed mood/affect - LABS Result Diagrams: 05/03/18 05:00 05/03/18 05:00 - FOLLOW UP Follow Up: Pt may follow up Dr. Hampton when he is arrival to [facility], continue PT/OT, follow up orthopedics office in two weeks for Xray and removal of sutures/ britta - TIME SPENT Time Spent in Discharge (Minutes): 50
--- NOTE | 2018-05-07 03:37 | OPERATIVE REPORT ---
DATE OF SERVICE: 04/30/2018 Physician: Keerthi Forman MD PREOPERATIVE DIAGNOSIS: Comminuted left intertrochanteric subtrochanteric femur fracture. POSTOPERATIVE DIAGNOSIS: Comminuted left intertrochanteric subtrochanteric femur fracture. PROCEDURE PERFORMED: Locked intramedullary rodding of the left femur. OPERATING SURGEON: Keerthi Forman MD ANESTHESIA: Spinal and epidural by Vishal Zuniga. INDICATIONS FOR SURGERY: Patient is a 73-year-old male who suffered a ground level fall injuring his left hip with a comminuted intertrochanteric subtrochanteric fracture. He has been prepared for maría piedad on the fluoroscopy with hospitalist intervention and has consented to proceed with stabilization of his fracture. DESCRIPTION OF OPERATIVE PROCEDURE: The patient was taken to the operating room on 04/30/2018 underg oing an operative fixation of his femur. The patient was placed on the fracture table in a supine po sition. His anesthetic had been given. The patient was comfortable and he was carefully positioned on the fracture table for access to his left proximal femur for rodding and the C-arm was brought int o position, confirming reduction of the fracture. Once this was satisfactory, a sterile prep and alejo pe was undertaken and after surgical timeout, the hip was approached with an oblique incision over th e top of the trochanter, through which a digital dissection was taken down to the tip of the trochant er and a protective guide was placed into the wound and a guidewire placed into the femur, over which reaming was performed to enter the intramedullary canal. The guidewire was then advanced down to th e distal femur and sequential reaming was undertaken to allow placement of an intramedullary paulo natu ral hip type by Can. Ultimately, a size 13 paulo was inserted and the proximal femoral lag screw wa s inserted with the guide aiming for a central location in the femoral head. The paulo had an inherent 130-degree angle and this allowed central placement and appropriate screw length was inserted. Foll owing this, the screw was locked and then the guides were removed from the insertion instruments. Th e femur was swung into abduction to allow the C-arm to move into position and place a distal interloc k screw. This was done freehand and the screw was placed in the femur through the distal paulo confirm ed by C-arm imaging through a small stab wound. The wounds were flushed and irrigated. Closure was with interrupted Vicryl followed by staple closure of each of these incisions and placement of steril e dressings. The patient was taken to the recovery room by taking him out of traction off the fractu re table into a bed and to the recovery room in stable condition. ESTIMATED BLOOD LOSS: 150 mL. COMPLICATIONS: None. COUNTS: Sponge and needle counts correct. TD: 05/06/2018 17:04
== END 2018-05-03 13:20 | DRG 481 ==
LOC: ED 17:46 → MS2 20:12
PROVIDERS: ADMIT Internal Medicine; ATTEND Nurse Practitioner Gerontology
PROC: 0QS736Z Reposition Left Upper Femur with Intramedullary Internal Fixation Device, Percutaneous Approach (ICD-10-PCS; principal; 2018-04-30 10:00)
PROC: 30233N1 Transfusion of Nonautologous Red Blood Cells into Peripheral Vein, Percutaneous Approach (ICD-10-PCS; 2018-05-01)
DX: S72.142A Displaced intertrochanteric fracture of left femur, initial encounter for closed fracture (principal); W10.8XXA Fall (on) (from) other stairs and steps, initial encounter; E87.1 Hypo-osmolality and hyponatremia; Z87.01 Personal history of pneumonia (recurrent); C91.10 Chronic lymphocytic leukemia of B-cell type not having achieved remission; D62 Acute posthemorrhagic anemia; S72.22XA Displaced subtrochanteric fracture of left femur, initial encounter for closed fracture; E87.6 Hypokalemia; E83.42 Hypomagnesemia; E86.0 Dehydration; E86.1 Hypovolemia; I10 Essential (primary) hypertension; F32.9 Major depressive disorder, single episode, unspecified; I27.20 Pulmonary hypertension, unspecified; I35.0 Nonrheumatic aortic (valve) stenosis; J44.9 Chronic obstructive pulmonary disease, unspecified; F10.20 Alcohol dependence, uncomplicated; F41.9 Anxiety disorder, unspecified; F43.10 Post-traumatic stress disorder, unspecified; W10.9XXA Fall (on) (from) unspecified stairs and steps, initial encounter; Y92.008 Other place in unspecified non-institutional (private) residence as the place of occurrence of the external cause; Z85.46 Personal history of malignant neoplasm of prostate; Z85.820 Personal history of malignant melanoma of skin; Z63.79 Other stressful life events affecting family and household; Z91.81 History of falling; Z87.891 Personal history of nicotine dependence; Z79.899 Other long term (current) drug therapy
CPT/HCPCS: 36415; 71045; 76700; 80053; 81001; 81003; 82607; 82746; 83690; 83735; 84100; 85014; 85018; 85025; 85610; 86850; 86900; 86901; 86920; 87086; 93005; 96374; 99283; 99284

== ENCOUNTER 2018-05-05 17:45 | Outpatient (CLI) | payer MEDICARE, OTHER ==
[2018-05-05 18:34] LABS: CALCIUM 8.2 mg/dL (8.5-10.3); CREATININE 0.9 mg/dL (0.6-1.2)
[2018-05-05 18:38] LABS: BASOPHILS % (AUTO) 0.5 %; EOSINOPHILS # (AUTO) 0.1 10^3/uL (0.0-0.7); EOSINOPHILS % (AUTO) 1.6 %; HGB - HEMOGLOBIN 9.4 g/dL (14.0-18.0); LYMPHOCYTES # (AUTO) 4.1 10^3/uL (1.5-3.5); MEAN CORPUSCULAR HEMOGLOBIN 35.4 pg (27.0-31.0); MEAN CORPUSCULAR VOLUME 107.2 fL (80.0-94.0); MEAN PLATELET VOLUME 8.6 fL (7.4-11.4); MONOCYTES % (AUTO) 11.9 %; NEUTROPHILS # (AUTO) 3.2 10^3/uL (1.5-6.6); PLT - PLATELET COUNT 193 10^3/uL (130-450); RED BLOOD COUNT 2.64 10^6/uL (4.70-6.10); RED CELL DISTRIBUTION WIDTH 21.3 % (12.0-15.0); WHITE BLOOD COUNT 8.5 x10^3/uL (4.8-10.8)
[2018-05-05 20:14] LABS: PLATELET ESTIMATE, MANUAL NORMAL (130-450,000) (NORMAL); PLATELET MORPHOLOGY NORMAL APPEARANCE (NORMAL)
== END 2018-05-05 17:46 | disposition home or self-care (01) ==
LOC: LAB.R 17:45
DX: I10 Essential (primary) hypertension (principal); D64.9 Anemia, unspecified
CPT/HCPCS: 80048; 85025

== ENCOUNTER 2018-05-14 00:48 | Outpatient (CLI) | payer MEDICARE, OTHER | END 2018-05-14 00:49 | disposition critical access hospital (66) | LOC: EMS 00:48 | PROVIDERS: ATTEND Surgery | DX: M25.552 Pain in left hip (principal); M25.572 Pain in left ankle and joints of left foot; M25.512 Pain in left shoulder; W18.39XA Other fall on same level, initial encounter; Y93.01 Activity, walking, marching and hiking; Y92.128 Other place in nursing home as the place of occurrence of the external cause | CPT/HCPCS: A0425; A0429 ==

== ENCOUNTER 2018-05-14 00:52 | Emergency (ER) | payer MEDICARE, OTHER ==
--- NOTE | 2018-05-14 01:12 | ED Physician Documentation ---
PD HPI LOWER EXT INJURY - Stated complaint Stated Complaint: GLF - Chief complaint Chief Complaint: Ext Problem - History obtained from History obtained from: Patient - History of Present Illness PD HPI LOW EXT INJURY LOCATION: Left, Hip, Knee Type of injury: Fall (he was tring to get out of bed without assistance and fell to floor. Pain in left hip and knee, which had recent surgical repair for hip fracture. [facility] caregivers say the patient has been having some agitation and confusion at times. 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 No: Anticoagulated Recently seen: Emergency Dept, Surgery (repair of left hip fracture.) Review of Systems Constitutional: denies: Fever Nose: denies: Rhinorrhea / runny nose, Congestion Throat: denies: Sore throat Cardiac: denies: Chest pain / pressure, Palpitations Respiratory: denies: Dyspnea, Cough GI: denies: Abdominal Pain, Vomiting, Diarrhea : denies: Dysuria Skin: reports: Abrasion (s) (left elbow tonight from fall) Musculoskeletal: denies: Back pain Neurologic: reports: Confused (at times per [facility]). denies: Focal weakness, Numbness, Headache PD PAST MEDICAL HISTORY - Past Medical History Cardiovascular: Hypertension, Valve disorder Respiratory: COPD, Other Neuro: None Endocrine/Autoimmune: None GI: None : Other HEENT: None Psych: Depression, Anxiety Musculoskeletal: Osteoarthritis Derm: Other - Past Surgical History Past Surgical History: Yes General: Colonoscopy Ortho: Arthroscopic surgery, Other HEENT: Tonsil/Adenoidectomy Derm: Skin cancer surgery - Present Medications Home Medications: Ambulatory Orders Medication Instructions Recorded Confirmed ALPRAZolam [Alprazolam] 0.5 mg PO BID PRN 02/10/18 05/01/18 Citalopram Hydrobromide 20 mg PO DAILY 02/10/18 05/01/18 [Citalopram HBr] Losartan Potassium 50 mg PO DAILY 02/10/18 05/01/18 Spironolactone 25 mg PO DAILY #30 tablet 02/13/18 05/01/18 Cholecalciferol (Vitamin D3) 1,000 unit PO DAILY 05/01/18 05/01/18 [Vitamin D3] Aspirin 325 mg PO BID #20 tablet 05/03/18 Folic Acid 1 mg PO DAILY #10 tablet 05/03/18 Magnesium Oxide [Mag Ox] 400 mg PO DAILYWM #10 tablet 05/03/18 Multivitamin [Theragran] 1 tab PO DAILYWM #10 tablet 05/03/18 Thiamine [Vitamin B-1] 100 mg PO DAILY #10 tablet 05/03/18 oxyCODONE [Roxicodone] 5 mg PO Q4HR PRN #20 tablet 05/03/18 - Allergies Allergies/Adverse Reactions: Allergies Allergy/AdvReac Type Severity Reaction Status Date / Time No Known Drug Allergies Allergy Verified 04/02/13 13:03 - Social History Does the pt smoke?: Yes Smoking Status: Current every day smoker Does the pt drink ETOH?: No Does the pt have substance abuse?: No - Immunizations Immunizations are current?: Yes - POLST Patient has POLST: No POLST Status: Full Code PD ED PE NORMAL - Vitals Vital signs reviewed: Yes - General General: Alert and oriented X 3, No acute distress, Well developed/nourished - HEENT HEENT: Atraumatic, Moist mucous membranes, Pharynx benign - Neck Neck: Supple, no meningeal sign, No bony TTP, No adenopathy - Cardiac Cardiac: RRR, No murmur - Respiratory Respiratory: Clear bilaterally - Abdomen Abdomen: Soft, Non tender - Male Male : Deferred - Rectal Rectal: Deferred - Back Back: No CVA TTP - Derm Derm: Normal color, Warm and dry - Extremities Extremities: Other (left hip with some guarded/stiff ROM but still able. Knee with some tenderness anteriorly. No effusion. Left elbow with superficial skin tear. No tenderness of the joint. ) - Neuro Neuro: Alert and oriented X 3, end frazer 2-12 intact, No motor deficit, No sensory deficit, Normal speech Eye Opening: Spontaneous Motor: Obeys Commands Verbal: Oriented GCS Score: 15 - Psych Psych: Normal mood, Other (he thought he had come from home, and was not in [facility] anymore. ) Results - Vitals Vitals: Vital Signs - 24 hr 05/14/18 05/14/18 00:55 03:29 Temperature 36.6 C Heart Rate 78 79 Respiratory 15 16 Rate Blood Pressure 146/78 H 117/92 H O2 Saturation 95 98 Oxygen O2 Source Room air - Labs Labs: Laboratory Tests 05/14/18 05/14/18 05/14/18 01:40 01:40 04:05 WBC 10.6 RBC 3.20 L Hgb 11.2 L Hct 33.3 L MCV 104.1 H MCH 34.9 H MCHC 33.5 RDW 19.5 H Plt Count 336 MPV 8.5 Neut # (Auto) Not Reportable Lymph # (Auto) Not Reportable Ransom # (Auto) Not Reportable Eos # (Auto) Not Reportable Baso # (Auto) Not Reportable Absolute Nucleated RBC Not Reportable Total Counted 100 Band Neuts % (Manual) 1 Abnorm Lymph % (Manual) 0 Nucleated RBC % Not Reportable Neutrophils # (Manual) 4.0 Lymphocytes # (Manual) 6.4 H Monocytes # (Manual) 0.1 Eosinophils # (Manual) 0.1 Basophils # (Manual) 0.0 Differential Comment MANUAL DIFFERENTIAL Platelet Estimate NORMAL (130-450,000) RBC Morph Micro Appear 1+ OVALOCYTES Sodium 131 L Potassium 4.2 Chloride 97 L Carbon Dioxide 25 Anion Gap 9.0 BUN 23 H Creatinine 1.1 Estimated GFR (MDRD) 65 L Glucose 109 H Calcium 8.5 Magnesium 1.8 Total Bilirubin 1.4 H AST 24 ALT 17 Alkaline Phosphatase 187 H Total Protein 6.1 L Albumin 3.4 Globulin 2.7 Albumin/Globulin Ratio 1.3 Lipase 44 Urine Color YELLOW Urine Clarity CLEAR Urine pH 5.5 Ur Specific Bea[place]ont 1.025 Urine Protein NEGATIVE Urine Glucose (UA) NEGATIVE Urine Ketones 15 H Urine Occult Blood NEGATIVE Urine Nitrite NEGATIVE Urine Bilirubin NEGATIVE Urine Urobilinogen 0.2 (NORMAL) Ur Leukocyte Esterase NEGATIVE Ur Microscopic Review NOT INDICATED Urine Culture Comments NOT INDICATED - Rads (name of study) hip and knee Radiology: Prelim report reviewed (prior ortho repair; no acute fractures. ) chest xray Radiology: Prelim report reviewed (no infiltrates) PD MEDICAL DECISION MAKING - ED course Complexity details: reviewed results, considered differential (will xray to ensure no disruption of the recent repair. Also with report of his being confused at times, will check for infections, such as CXR and urine, and also metabolic (lytes, sugar, etc). ), d/w patient - Sepsis Event Vital Signs: Vital Signs - 24 hr 05/14/18 05/14/18 00:55 03:29 Temperature 36.6 C Heart Rate 78 79 Respiratory 15 16 Rate Blood Pressure 146/78 H 117/92 H O2 Saturation 95 98 Oxygen O2 Source Room air Departure - Departure Disposition: 01 Home, Self Care Clinical Impression: Acute postoperative pain of left hip Fall from slip, trip, or stumble Qualifiers: Encounter type: initial encounter Qualified Code(s): W01.0XXA - Fall on same level from slipping, tripping and stumbling without subsequent striking against object, initial encounter Condition: Stable Record reviewed to determine appropriate education?: Yes Follow-Up: Manjit Hampton MD [Primary Care Provider] - Comments: Continue current medications. Add Tylenol 650 mg every 4-6 hours if needed for pains. There are no fractures or disruption of the recent surgery seen on x- ray.
[2018-05-14] MEDS ORDERED: SODIUM CHLORIDE 0.9% 1,000 ML IV ONE (01:32)
[2018-05-14 01:58] LABS: BASOPHILS % (AUTO) 0.8 %; EOSINOPHILS % (AUTO) 2.3 %; HGB - HEMOGLOBIN 11.2 g/dL (14.0-18.0); LYMPHOCYTES % (AUTO) 51.3 %; MEAN CORPUSCULAR HEMOGLOBIN 34.9 pg (27.0-31.0); MEAN CORPUSCULAR HGB CONC 33.5 g/dL (32.0-36.0); MEAN CORPUSCULAR VOLUME 104.1 fL (80.0-94.0); MEAN PLATELET VOLUME 8.5 fL (7.4-11.4); MONOCYTES % (AUTO) 7.4 %; NEUTROPHILS % (AUTO) 38.2 %; PLT - PLATELET COUNT 336 10^3/uL (130-450); RED CELL DISTRIBUTION WIDTH 19.5 % (12.0-15.0); WHITE BLOOD COUNT 10.6 x10^3/uL (4.8-10.8)
[2018-05-14 01:59] LABS: ALBUMIN 3.4 g/dL (3.2-5.5); ALBUMIN/GLOBULIN RATIO 1.3 (1.0-2.2); BILIRUBIN,TOTAL 1.4 mg/dL (0.2-1.0); CALCIUM 8.5 mg/dL (8.5-10.3); CREATININE 1.1 mg/dL (0.6-1.2); MAGNESIUM 1.8 mg/dL (1.7-2.8); TOTAL PROTEIN 6.1 g/dL (6.7-8.2)
[2018-05-14 02:00] LABS: ABNORMAL LYMPHS % (MANUAL) 0 %
[2018-05-14 03:04] LABS: BAND NEUTROPHILS % (MANUAL) 1 %; DIFFERENTIAL COMMENT MANUAL DIFFERENTIAL; EOSINOPHILS # (MANUAL) 0.1 10^3/uL (0-0.7); LYMPHOCYTES # (MANUAL) 6.4 10^3/uL (1.5-3.5); LYMPHOCYTES % (MANUAL) 60 %; MONOCYTES # (MANUAL) 0.1 10^3/uL (0.0-1.0); NEUTROPHILS % (MANUAL) 37 %; PLATELET ESTIMATE, MANUAL NORMAL (130-450,000) (NORMAL)
--- NOTE | 2018-05-14 03:22 | XRAY Report ---
Procedure Date: 05/14/2018 Accession Number: [id number] / [id number] Procedure: XR - Hip w/Pelvis 2-3V LT CPT Code: FULL RESULT: EXAM: LEFT HIP AND PELVIS RADIOGRAPHY EXAM DATE: 05/14/2018 02:59 AM. HISTORY: Fall tonight; recent hip surgery. COMPARISONS: L HIP 04/30/2018 10:49 AM HIP W/PELVIS 2-3V LT 04/29/2018. TECHNIQUE: 1 view of the pelvis and 2 view of the hip. FINDINGS: Bones: Left hip fracture with long gamma nail and distal interlocking screw. Joints: No dislocation seen. Moderate degenerative changes in the hips. Soft Tissues: Vascular calcifications. Radiation seeds in the prostate. IMPRESSION: 1. Left hip fracture with long gamma nail and distal interlocking screw. 2. Degenerative joint disease in the hips. No dislocation seen. [facility]
--- NOTE | 2018-05-14 03:23 | XRAY Report ---
Procedure Date: 05/14/2018 Accession Number: [id number] / [id number] Procedure: XR - Chest 2 View X-Ray CPT Code: 23039 FULL RESULT: EXAM: CHEST RADIOGRAPHY EXAM DATE: 05/14/2018 03:01 AM. CLINICAL HISTORY: Chest pain left sided. COMPARISON: CHEST 1 VIEW 05/01/2018. TECHNIQUE: 2 views. FINDINGS: Lungs/Pleura: No alveolar consolidation or pleural effusion seen. No pneumothorax. Mediastinum: Heart and mediastinal contours are unremarkable. Aortic atherosclerosis. Other: None. IMPRESSION: 1. No acute abnormality seen in the chest. [facility]
--- NOTE | 2018-05-14 03:31 | XRAY Report ---
Procedure Date: 05/14/2018 Accession Number: [id number] / [id number] Procedure: XR - Knee 3 View LT CPT Code: FULL RESULT: EXAM: LEFT KNEE RADIOGRAPHY EXAM DATE: 05/14/2018 03:03 AM. CLINICAL HISTORY: Fall tonight. COMPARISON: XR KNEE 3 VIEW 03/31/2007. TECHNIQUE: 3 views. FINDINGS: Bones: There is no acute displaced fracture or definite suspicious bony lesion. Intramedullary paulo within the femur is noted with a distal screw. Bone island within the medial femoral condyle. Joints: No dislocation. There is no significant effusion. There is [id number] medial and patellofemoral compartmental degenerative change suspected. Soft Tissues: Karely-Stieda calcification adjacent to the medial femoral condyle, related to old MCL injury. There are three surgical britta within the lateral soft tissues of the left distal thigh. Moderate calcific atherosclerosis. No significant soft tissue swelling. IMPRESSION: No acute bony abnormality demonstrated. Evidence of old MCL injury noted. [facility]
[2018-05-14 04:36] LABS: GLUCOSE, URINE (UA) NEGATIVE (NEGATIVE); KETONES,URINE (UA) 15 mg/dL (NEGATIVE); LEUKOCYTE ESTERASE, URINE NEGATIVE (NEGATIVE); NITRITE,URINE NEGATIVE (NEGATIVE); OCCULT BLOOD,URINE NEGATIVE (NEGATIVE); PH,URINE 5.5 PH (5.0-7.5); PROTEIN,URINE NEGATIVE (NEGATIVE); UROBILINOGEN,URINE 0.2 (NORMAL) E.U./dL (NORMAL)
[2018-05-14 04:39] LABS: CLARITY,URINE CLEAR (CLEAR)
[2018-05-14 04:40] LABS: BILIRUBIN,URINE NEGATIVE (NEGATIVE); ICTOTEST,URINE NEGATIVE
[2018-05-14] MEDS ORDERED: LORazepam 0.5 MG TABLET PO STA (05:11)
[2018-05-14 05:14] VITALS: BP 146/74
== END 2018-05-14 05:50 | disposition home or self-care (01) ==
LOC: EDUNIT# → ED 00:52
DX: G89.18 Other acute postprocedural pain (principal); S51.032A Puncture wound without foreign body of left elbow, initial encounter; W06.XXXA Fall from bed, initial encounter; Y92.199 Unspecified place in other specified residential institution as the place of occurrence of the external cause; D50.9 Iron deficiency anemia, unspecified; D52.9 Folate deficiency anemia, unspecified; D51.0 Vitamin B12 deficiency anemia due to intrinsic factor deficiency; R79.89 Other specified abnormal findings of blood chemistry; I10 Essential (primary) hypertension; F17.200 Nicotine dependence, unspecified, uncomplicated; Z79.82 Long term (current) use of aspirin
CPT/HCPCS: 36415; 71046; 73502; 73562; 80053; 81003; 82607; 82728; 83540; 83690; 83735; 84466; 85025; 96360; 96361; 99283; A9270; 81001; 82746; 87086

== ENCOUNTER 2018-05-14 05:50 | Outpatient (CLI) | payer MEDICARE, OTHER | END 2018-05-14 05:51 | LOC: EMS 05:50 | PROVIDERS: ATTEND Surgery | DX: M25.552 Pain in left hip (principal); M25.572 Pain in left ankle and joints of left foot; M25.512 Pain in left shoulder; W18.39XA Other fall on same level, initial encounter; Y92.128 Other place in nursing home as the place of occurrence of the external cause | CPT/HCPCS: A0425; A0428; A0429 ==

== ENCOUNTER 2018-05-14 14:47 | Outpatient (CLI) | payer MEDICARE, OTHER ==
[2018-05-14 16:26] LABS: % IRON SATURATION 30 % (20-50); IRON 64 ug/dL (45-182); TOTAL IRON BINDING CAPACITY 216 ug/dL (250-450); TRANSFERRIN 154 mg/dL (180-329)
== END 2018-05-14 14:48 | disposition home or self-care (01) ==
LOC: LAB 14:47
DX: R79.89 Other specified abnormal findings of blood chemistry (principal); D50.9 Iron deficiency anemia, unspecified; D52.9 Folate deficiency anemia, unspecified; D51.0 Vitamin B12 deficiency anemia due to intrinsic factor deficiency
CPT/HCPCS: 82607; 82728; 82746; 83540; 84466

== ENCOUNTER 2018-05-15 15:48 | Outpatient (CLI) | payer MEDICARE, OTHER ==
--- NOTE | 2018-05-15 17:23 | CT Report ---
Procedure Date: 05/15/2018 Accession Number: [id number] / [id number] Procedure: CT - Head W/O CPT Code: FULL RESULT: EXAM: CT HEAD EXAM DATE: 05/15/2018 04:44 PM. CLINICAL HISTORY: TRAUMA, FALL, VISUAL HALUCINATIONS. COMPARISON: None. TECHNIQUE: Multiaxial CT images were obtained from the foramen magnum to the vertex. Reformats: Sagittal and coronal. IV contrast: None. In accordance with CT protocol optimization, one or more of the following dose reduction techniques were utilized for this exam: automated exposure control, adjustment of mA and/or KV based on patient size, or use of iterative reconstructive technique. FINDINGS: Parenchyma: Subcortical and periventricular white matter changes consistent with small vessel ischemic disease in the appropriate clinical setting. No intraparenchymal hemorrhage. No evidence of mass, midline shift, or CT findings of infarction. Hedrick-white differentiation is distinct. Extraaxial Spaces: Normal for age. No subdural or epidural collections identified. Ventricles: Normal in size and position. Sinuses and Orbits: Imaged paranasal sinuses, orbits, and mastoids show no significant abnormality. Bones: No evidence of fracture or calvarial defect. Other: None. IMPRESSION: 1. No acute intracranial abnormality. 2. Small vessel ischemic disease in the appropriate clinical setting. Findings discussed with Dr. Garrett by phone on 05/15/2018 at 5:20 PM [facility] The call report notification system was initiated by Dr. Jil Robertson at 17:18 hrs on 05/15/18. The above findings were discussed with Dr. Garrett, Dr by Dr. Jil Robertson at 17:21 hrs on 05/15/18.
== END 2018-05-15 15:49 | disposition home or self-care (01) ==
LOC: DI 15:48
PROVIDERS: ATTEND Internal Medicine
DX: R44.1 Visual hallucinations (principal); Z91.81 History of falling
CPT/HCPCS: 70450

== ENCOUNTER 2018-05-26 21:15 | Outpatient (CLI) | payer MEDICARE, OTHER ==
[2018-05-27 02:12] LABS: BASOPHILS # (AUTO) 0.1 10^3/uL (0.0-0.1); BASOPHILS % (AUTO) 0.8 %; EOSINOPHILS # (AUTO) 0.3 10^3/uL (0.0-0.7); EOSINOPHILS % (AUTO) 3.7 %; HGB - HEMOGLOBIN 11.3 g/dL (14.0-18.0); LYMPHOCYTES # (AUTO) 4.2 10^3/uL (1.5-3.5); LYMPHOCYTES % (AUTO) 51.4 %; MEAN CORPUSCULAR HEMOGLOBIN 34.2 pg (27.0-31.0); MEAN CORPUSCULAR HGB CONC 33.7 g/dL (32.0-36.0); MEAN CORPUSCULAR VOLUME 101.5 fL (80.0-94.0); MONOCYTES # (AUTO) 0.7 10^3/uL (0.0-1.0); MONOCYTES % (AUTO) 8.1 %; PLT - PLATELET COUNT 202 10^3/uL (130-450); RED BLOOD COUNT 3.29 10^6/uL (4.70-6.10); RED CELL DISTRIBUTION WIDTH 18.8 % (12.0-15.0); WHITE BLOOD COUNT 8.2 x10^3/uL (4.8-10.8)
== END 2018-05-26 21:16 | disposition home or self-care (01) ==
LOC: LAB.R 21:15
DX: J18.8 Other pneumonia, unspecified organism (principal)
CPT/HCPCS: 85025

== ENCOUNTER 2018-06-05 11:20 | Outpatient (CLI) | payer MEDICARE, OTHER ==
[2018-06-05 13:00] LABS: BASOPHILS % (AUTO) 0.5 %; EOSINOPHILS # (AUTO) 0.3 10^3/uL (0.0-0.7); EOSINOPHILS % (AUTO) 4.2 %; HGB - HEMOGLOBIN 11.5 g/dL (14.0-18.0); LYMPHOCYTES % (AUTO) 43.7 %; MEAN CORPUSCULAR HEMOGLOBIN 34.1 pg (27.0-31.0); MEAN CORPUSCULAR HGB CONC 33.8 g/dL (32.0-36.0); MEAN PLATELET VOLUME 8.6 fL (7.4-11.4); MONOCYTES # (AUTO) 0.5 10^3/uL (0.0-1.0); MONOCYTES % (AUTO) 7.6 %; PLT - PLATELET COUNT 203 10^3/uL (130-450); RED BLOOD COUNT 3.38 10^6/uL (4.70-6.10); RED CELL DISTRIBUTION WIDTH 17.7 % (12.0-15.0); WHITE BLOOD COUNT 6.8 x10^3/uL (4.8-10.8)
[2018-06-05 13:31] LABS: FERRITIN 239.5 ng/mL (23.9-336.2)
[2018-06-05 13:40] LABS: % IRON SATURATION 39 % (20-50); IRON 97 ug/dL (45-182); TOTAL IRON BINDING CAPACITY 246 ug/dL (250-450); TRANSFERRIN 176 mg/dL (180-329)
== END 2018-06-05 11:21 | disposition home or self-care (01) ==
LOC: LAB.R 11:20
DX: E61.1 Iron deficiency (principal); D51.9 Vitamin B12 deficiency anemia, unspecified; R68.89 Other general symptoms and signs
CPT/HCPCS: 82607; 82728; 83540; 84466; 85025

== ENCOUNTER 2018-09-21 18:53 | Outpatient (CLI) | payer MEDICARE, OTHER | END 2018-09-21 18:54 | disposition critical access hospital (66) | LOC: EMS 18:53 | PROVIDERS: ATTEND Surgery | DX: R25.9 Unspecified abnormal involuntary movements (principal); R53.1 Weakness; R41.0 Disorientation, unspecified | CPT/HCPCS: A0425; A0429 ==

== ENCOUNTER 2018-09-21 19:08 | Emergency (ER) | payer MEDICARE, OTHER ==
[2018-09-21] MEDS ORDERED: SODIUM CHLORIDE 0.9% 1,000 ML IV ONE (19:55)
--- NOTE | 2018-09-21 19:56 | ED Physician Documentation ---
PD HPI ALTERED MENTAL STATUS - Stated complaint Stated Complaint: BODY TREMORS - Chief complaint Chief Complaint: Neuro - History obtained from History obtained from: Patient, EMS - History of Present Illness Timing - onset: How many hours ago (1), Today Timing - duration: Minutes (1/2 - 1 minute duration) Timing - details: Abrupt onset, Now resolved Quality / character: Other (His states patient was walking down the steps on the stairway. He seemed feeling okay earlier in the day and dinnertime. He suddenly started having tremoring while walking and then fell to the floor and had a whole-body tremoring consistent with seizure activity. He had not had any prior history of seizures. She called EMS and the seizure had stopped on there by the time of their arrival but he was still confused. This improved on route and he was awake and alert and talking by arrival here in the ER. He denied any chest or head pains.) Associated symptoms: Seizure activity. No: Fever, Headache, Stiff neck, Dyspnea, Cough, Focal weakness Contributing factors: Substance abuse (prior problems with alcoholism). No: Diabetic, Recent illness, Intoxicated (He had had a couple of drinks earlier in the day but was not intoxicated according to the .) Basline status: Alert and oriented X 3, Ambulatory Treatment [employer]ER: Accucheck Similar symptoms before: Has not had sx before Review of Systems Constitutional: denies: Fever Nose: denies: Rhinorrhea / runny nose, Congestion Throat: denies: Sore throat Cardiac: denies: Chest pain / pressure, Palpitations Respiratory: denies: Dyspnea, Cough GI: denies: Abdominal Pain, Nausea, Vomiting, Diarrhea Neurologic: reports: Seizure (just [employer]SE [employer]UB[employer]ER, none prior). denies: Focal weakness, Near syncope, Altered mental status, Headache, Head injury Endocrine: denies: Weight loss Immunocompromised: denies: Immunocompromised PD PAST MEDICAL HISTORY - Past Medical History Cardiovascular: Hypertension, Valve disorder Respiratory: COPD, Other Neuro: None Endocrine/Autoimmune: None GI: None : Other HEENT: None Psych: Depression, Anxiety Musculoskeletal: Osteoarthritis Derm: Other - Past Surgical History Past Surgical History: Yes General: Colonoscopy Ortho: Arthroscopic surgery, Other HEENT: Tonsil/Adenoidectomy Derm: Skin cancer surgery - Present Medications Home Medications: Ambulatory Orders Medication Instructions Recorded Confirmed ALPRAZolam [Alprazolam] 0.5 mg PO BID PRN 02/10/18 05/01/18 Citalopram Hydrobromide 20 mg PO DAILY 02/10/18 05/01/18 [Citalopram HBr] Losartan Potassium 50 mg PO DAILY 02/10/18 05/01/18 Spironolactone 25 mg PO DAILY #30 tablet 02/13/18 05/01/18 Cholecalciferol (Vitamin D3) 1,000 unit PO DAILY 05/01/18 05/01/18 [Vitamin D3] Aspirin 325 mg PO BID #20 tablet 05/03/18 Folic Acid 1 mg PO DAILY #10 tablet 05/03/18 Magnesium Oxide [Mag Ox] 400 mg PO DAILYWM #10 tablet 05/03/18 Multivitamin [Theragran] 1 tab PO DAILYWM #10 tablet 05/03/18 Thiamine [Vitamin B-1] 100 mg PO DAILY #10 tablet 05/03/18 oxyCODONE [Roxicodone] 5 mg PO Q4HR PRN #20 tablet 05/03/18 - Allergies Allergies/Adverse Reactions: Allergies Allergy/AdvReac Type Severity Reaction Status Date / Time No Known Drug Allergies Allergy Verified 04/02/13 13:03 - Social History Does the pt smoke?: Yes Smoking Status: Former smoker Does the pt drink ETOH?: No Does the pt have substance abuse?: No - Immunizations Immunizations are current?: Yes - POLST Patient has POLST: No POLST Status: Full Code PD ED PE NORMAL - Vitals Vital signs reviewed: Yes - General General: Alert and oriented X 3, No acute distress, Well developed/nourished, Other (no tremors) - HEENT HEENT: Atraumatic, PERRL, EOMI, Pharynx benign - Neck Neck: Supple, no meningeal sign, No JVD - Cardiac Cardiac: RRR, No murmur - Respiratory Respiratory: No respiratory distress, Clear bilaterally - Abdomen Abdomen: Normal bowel sounds, Soft, Non tender, Non distended - Male Male : Deferred - Rectal Rectal: Deferred - Back Back: No CVA TTP, No spinal TTP - Derm Derm: Normal color, Warm and dry - Extremities Extremities: No deformity, No tenderness to palpate - Neuro Neuro: Alert and oriented X 3, No motor deficit, Normal speech Eye Opening: Spontaneous Motor: Obeys Commands Verbal: Oriented GCS Score: 15 Results - Vitals Vitals: Vital Signs - 24 hr 09/21/18 09/21/18 09/21/18 19:17 19:39 19:47 Temperature 36.5 C Heart Rate 94 86 88 Respiratory 22 16 24 Rate Blood Pressure 134/74 H 153/94 H 153/94 H O2 Saturation 97 99 97 09/21/18 09/21/18 09/21/18 19:59 20:03 20:21 Temperature Heart Rate 103 H 105 H 101 H Respiratory 22 22 22 Rate Blood Pressure 160/91 H 152/96 H O2 Saturation 99 16 L 99 09/21/18 09/21/18 09/21/18 20:37 21:09 21:30 Temperature Heart Rate 111 H 117 H 104 H Respiratory 26 H 22 20 Rate Blood Pressure 150/97 H 139/83 H 132/81 H O2 Saturation 97 97 96 09/21/18 09/22/18 22:07 01:03 Temperature Heart Rate 109 H 91 Respiratory 22 20 Rate Blood Pressure 126/72 140/87 H O2 Saturation 98 98 Oxygen O2 Source Nasal cannula Oxygen Flow Rate 15 - Labs Labs: Laboratory Tests 09/21/18 09/21/18 09/22/18 20:03 20:03 00:25 WBC 15.8 H RBC 4.28 L Hgb 14.3 Hct 43.8 MCV 102.3 H MCH 33.3 H MCHC 32.6 RDW 14.5 Plt Count 221 MPV 7.1 L Neut # (Auto) Not Reportable Lymph # (Auto) Not Reportable Meagher # (Auto) Not Reportable Eos # (Auto) Not Reportable Baso # (Auto) Not Reportable Absolute Nucleated RBC Not Reportable Total Counted 100 Band Neuts % (Manual) 0 Abnorm Lymph % (Manual) 0 Nucleated RBC % Not Reportable Neutrophils # (Manual) 2.7 Lymphocytes # (Manual) 11.9 H Monocytes # (Manual) 0.5 Eosinophils # (Manual) 0.6 Basophils # (Manual) 0.2 H Differential Comment MANUAL DIFFERENTIAL Manual Slide Review Indicated WBC Morphology 1+ SMUDGE CELLS Platelet Estimate NORMAL (130-450,000) Platelet Morphology NORMAL APPEARANCE RBC Morph Micro Appear 1+ MACROCYTOSIS Sodium 134 L Potassium 4.0 Chloride 94 L Carbon Dioxide 16 L Anion Gap 24.0 H BUN 20 Creatinine 1.0 Estimated GFR (MDRD) 73 L Glucose 124 H Calcium 9.3 Magnesium 1.9 Total Bilirubin 0.6 AST 27 ALT 17 Alkaline Phosphatase 93 Total Protein 7.5 Albumin 4.5 Globulin 3.0 Albumin/Globulin Ratio 1.5 Lipase 46 Urine Color YELLOW Urine Clarity CLEAR Urine pH 6.0 Ur Specific [place] 1.025 Urine Protein NEGATIVE Urine Glucose (UA) NEGATIVE Urine Ketones TRACE Urine Occult Blood NEGATIVE Urine Nitrite NEGATIVE Urine Bilirubin NEGATIVE Urine Urobilinogen 0.2 (NORMAL) Ur Leukocyte Esterase NEGATIVE Ur Microscopic Review NOT INDICATED Urine Culture Comments NOT INDICATED Salicylates < 6.0 Urine Opiates Screen NEGATIVE Ur Oxycodone Screen NEGATIVE Urine Methadone Screen NEGATIVE Ur Propoxyphene Screen NEGATIVE Acetaminophen < 10 L Ur Barbiturates Screen NEGATIVE Ur Tricyclics Screen NEGATIVE Ur Phencyclidine Scrn NEGATIVE Ur Amphetamine Screen NEGATIVE U Methamphetamines Scrn POSITIVE H U Benzodiazepines Scrn POSITIVE H Urine Cocaine Screen NEGATIVE U Cannabinoids Screen NEGATIVE Ethyl Alcohol 5.0 Slides for Path Review Indicated - Rads (name of study) head CT Radiology: Prelim report reviewed (normal/ no acute process), EMP read contemporaneously PD MEDICAL DECISION MAKING - ED course Complexity details: re-evaluated patient (No further seizures after getting dose of benzodiazepine and Keppra IV. He is awake and conversant without any focal neuro deficits.), considered differential (New onset seizures today. No fever or acute illness. He did not have any fall or head injury. He does have history of alcohol use and abuse in the past but his states he has not been excessive recently and has not stopped recently. He did not have any withdrawal type symptoms today or yesterday. He had had a couple of drinks earlier in the day. He was seen to have repetitive seizures with lucid intervals a couple of times here in the ER. The concern would be needing neurology possibly and certainly likely MRI. I talked briefly with her [facility] who felt it would be more appropriate for another facility with neurology. [facility] did not have any beds available but [facility] did and Dr. Cordon accepted transfer.), d/w patient Departure - Departure Disposition: 02 Transfer Acute Care Hosp Clinical Impression: CLL (chronic lymphocytic leukemia), New onset seizure Condition: Stable Record reviewed to determine appropriate education?: Yes Discharge Date/Time: 09/22/18 01:00
[2018-09-21 20:10] LABS: BASOPHILS % (AUTO) 0.4 %; EOSINOPHILS % (AUTO) 1.7 %; HGB - HEMOGLOBIN 14.3 g/dL (14.0-18.0); LYMPHOCYTES % (AUTO) 70.3 %; MEAN CORPUSCULAR HEMOGLOBIN 33.3 pg (27.0-31.0); MEAN CORPUSCULAR HGB CONC 32.6 g/dL (32.0-36.0); MEAN CORPUSCULAR VOLUME 102.3 fL (80.0-94.0); MEAN PLATELET VOLUME 7.1 fL (7.4-11.4); NEUTROPHILS % (AUTO) 21.6 %; PLT - PLATELET COUNT 221 10^3/uL (130-450); RED BLOOD COUNT 4.28 10^6/uL (4.70-6.10); RED CELL DISTRIBUTION WIDTH 14.5 % (12.0-15.0); WHITE BLOOD COUNT 15.8 x10^3/uL (4.8-10.8)
[2018-09-21 20:17] LABS: ABNORMAL LYMPHS % (MANUAL) 0 %; BAND NEUTROPHILS % (MANUAL) 0 %
[2018-09-21 20:26] LABS: ACETAMINOPHEN < 10 ug/mL (10-30); ALBUMIN 4.5 g/dL (3.2-5.5); ALBUMIN/GLOBULIN RATIO 1.5 (1.0-2.2); ALKALINE PHOSPHATASE 93 IU/L (42-121); ALT ALANINE AMINOTRANSFERASE 17 IU/L (10-60); AST ASPARTATE AMINOTRANSFERASE 27 IU/L (10-42); BILIRUBIN,TOTAL 0.6 mg/dL (0.2-1.0); BUN - BLOOD UREA NITROGEN 20 mg/dL (6-20); CALCIUM 9.3 mg/dL (8.5-10.3); CARBON DIOXIDE - CO2 16 mmol/L (21-32); CHLORIDE 94 mmol/L (101-111); GFR - MDRD 73 (>89); GLUCOSE 124 mg/dL (70-100); LIPASE 46 U/L (22-51); MAGNESIUM 1.9 mg/dL (1.7-2.8); SALICYLATE < 6.0 mg/dL; SODIUM 134 mmol/L (135-145); TOTAL PROTEIN 7.5 g/dL (6.7-8.2)
[2018-09-21 20:28] LABS: BASOPHILS # (MANUAL) 0.2 10^3/uL (0-0.1); BASOPHILS % (MANUAL) 1 %; EOSINOPHILS # (MANUAL) 0.6 10^3/uL (0-0.7); LYMPHOCYTES # (MANUAL) 11.9 10^3/uL (1.5-3.5); LYMPHOCYTES % (MANUAL) 75 %; MONOCYTES # (MANUAL) 0.5 10^3/uL (0.0-1.0); NEUTROPHILS # (MANUAL) 2.7 10^3/uL (1.5-6.6); NEUTROPHILS % (MANUAL) 17 %
[2018-09-21 20:29] LABS: DIFFERENTIAL COMMENT MANUAL DIFFERENTIAL; PLATELET ESTIMATE, MANUAL NORMAL (130-450,000) (NORMAL); PLATELET MORPHOLOGY NORMAL APPEARANCE (NORMAL); RBC MORPHOLOGY (MULTIPLE) 1+ MACROCYTOSIS (NORMAL)
[2018-09-21] MEDS ORDERED: MIDAZOLAM 2 MG/2 ML VIAL ONE (20:35)
[2018-09-21] MEDS ORDERED: MIDAZOLAM 2 MG/2 ML VIAL IVP STA (20:38)
[2018-09-21] MEDS ORDERED: levETIRAcetam INJ 500 MG in SODIUM CHLORIDE 0.9% 100ML 100 ML IV STA (20:38)
--- NOTE | 2018-09-21 20:41 | CT Report ---
Reason: altered mental status Procedure Date: 09/21/2018 Accession Number: [id number] / [id number] Procedure: CT - Head W/O CPT Code: FULL RESULT: EXAM: CT HEAD EXAM DATE: 09/21/2018 08:21 PM. CLINICAL HISTORY: Altered mental status. COMPARISON: HEAD W/O 05/15/2018 4:38 PM. TECHNIQUE: Multiaxial CT images were obtained from the foramen magnum to the vertex. Reformats: Sagittal and coronal. IV contrast: None. In accordance with CT protocol optimization, one or more of the following dose reduction techniques were utilized for this exam: automated exposure control, adjustment of mA and/or KV based on patient size, or use of iterative reconstructive technique. FINDINGS: Parenchyma: No intraparenchymal hemorrhage. No evidence of mass, midline shift, or CT findings of infarction. Hedrick-white differentiation is distinct. Extraaxial Spaces: Normal for age. No subdural or epidural collections identified. Ventricles: Normal in size and position. Sinuses and Orbits: Imaged paranasal sinuses, orbits, and mastoids show no significant abnormality. Bones: No evidence of fracture or calvarial defect. Other: Calcifications involving the supraclinoid carotid arteries. IMPRESSION: No acute intracranial abnormality. RADIA
[2018-09-22 00:33] LABS: BILIRUBIN,URINE NEGATIVE (NEGATIVE); GLUCOSE, URINE (UA) NEGATIVE (NEGATIVE); KETONES,URINE (UA) TRACE mg/dL (NEGATIVE); LEUKOCYTE ESTERASE, URINE NEGATIVE (NEGATIVE); MUDS CUTOFF CONCENTRATIONS CUTOFF CONC BELOW:; NITRITE,URINE NEGATIVE (NEGATIVE); OCCULT BLOOD,URINE NEGATIVE (NEGATIVE); PROTEIN,URINE NEGATIVE (NEGATIVE); UROBILINOGEN,URINE 0.2 (NORMAL) E.U./dL (NORMAL)
[2018-09-22 00:34] LABS: CLARITY,URINE CLEAR (CLEAR)
[2018-09-22 00:54] LABS: AMPHETAMINE SCREEN,URINE NEGATIVE (NEGATIVE); BENZODIAZEPINES SCREEN, URINE POSITIVE (NEGATIVE); COCAINE SCREEN URINE NEGATIVE (NEGATIVE); METHADONE SCREEN, URINE NEGATIVE (NEGATIVE); METHAMPHETAMINES SCREEN, URINE POSITIVE (NEGATIVE); OPIATE SCREEN, URINE NEGATIVE (NEGATIVE); OXYCODONE SCREEN, URINE NEGATIVE (NEGATIVE); PROPOXYPHENE SCREEN, URINE NEGATIVE (NEGATIVE); TRICYCLIC ANTIDEPRESSANT,URINE NEGATIVE (NEGATIVE)
[2018-09-22 01:04] VITALS: BP 140/87
== END 2018-09-22 01:00 | disposition short-term general hospital (02) ==
LOC: EDUNIT# → ED 19:08
DX: C91.10 Chronic lymphocytic leukemia of B-cell type not having achieved remission (principal); R56.9 Unspecified convulsions; I10 Essential (primary) hypertension; Z79.82 Long term (current) use of aspirin; Z87.891 Personal history of nicotine dependence
CPT/HCPCS: 36415; 70450; 80053; 80306; 80307; 80320; 80329; 81001; 81003; 83690; 83735; 85025; 87086; 96361; 96365; 96375; 99284; 99285

== ENCOUNTER 2018-10-13 07:10 | Outpatient (CLI) | payer MEDICARE, OTHER | END 2018-10-13 07:11 | disposition critical access hospital (66) | LOC: EMS 07:10 | PROVIDERS: ATTEND Surgery | DX: R41.82 Altered mental status, unspecified (principal) | CPT/HCPCS: A0425; A0429 ==

== ENCOUNTER 2018-10-13 07:26 | Emergency (ER) | payer MEDICARE, OTHER ==
[2018-10-13] MEDS ORDERED: FOLIC ACID INJ 1 MG, THIAMINE INJ 100 MG, MAGNESIUM SULFATE 2 GM, MULTIVITAMIN 10 ML in... IV STA ×5 (07:35)
[2018-10-13] MEDS ORDERED: LORazepam 2 MG/ML VIAL IVP STA (07:37)
--- NOTE | 2018-10-13 07:49 | ED Physician Documentation ---
History of Present Illness - Stated complaint Stated Complaint: AMS - Chief complaint Chief Complaint: Neuro - Additonal information Additional information: hx from EMS who got hx from - some input from pt but he seems confused 73 male hx EtOH no EtOH for 2 days confused and falling fell into bathtub rear end first and was not able to get himself out pt states he was in tub all night medics state he was confused and belligerent per EMS and pt no fever, + cough, no NVD, no urinary sx pt denies [employer] CP AP ext pain no anticoagulants Review of Systems Constitutional: denies: Fever Ears: denies: Drainage/discharge Nose: denies: Epistaxis Cardiac: denies: Chest pain / pressure Respiratory: reports: Cough. denies: Dyspnea GI: denies: Abdominal Pain, Nausea, Vomiting, Diarrhea : denies: Dysuria Musculoskeletal: denies: Neck pain Neurologic: denies: Headache, Head injury (unknown) Endocrine: denies: Easy bruising / bleeding Immunocompromised: denies: Immunocompromised PD PAST MEDICAL HISTORY - Past Medical History Cardiovascular: Hypertension, Valve disorder Respiratory: COPD, Other Neuro: None Endocrine/Autoimmune: None GI: None : Other HEENT: None Psych: Depression, Anxiety Musculoskeletal: Osteoarthritis Derm: Other - Past Surgical History Past Surgical History: Yes General: Colonoscopy Ortho: Arthroscopic surgery, Other HEENT: Tonsil/Adenoidectomy Derm: Skin cancer surgery - Present Medications Home Medications: Ambulatory Orders Medication Instructions Recorded Confirmed chlordiazePOXIDE [Librium] 25 mg PO DAILY PRN #10 capsule 10/13/18 - Allergies Allergies/Adverse Reactions: Allergies Allergy/AdvReac Type Severity Reaction Status Date / Time [place] Allergy Emesis Uncoded 10/13/18 08:29 - Social History Does the pt smoke?: Yes Smoking Status: Former smoker Does the pt drink ETOH?: Yes ETOH Use: Wine Does the pt have substance abuse?: No - Immunizations Immunizations are current?: Yes - POLST Patient has POLST: No POLST Status: Full Code PD ED PE NORMAL - Vitals Vital signs reviewed: Yes - General General: No: Alert and oriented X 3 (confused, rambling history, seem irriatted to have been brought to the ER) - HEENT HEENT: Atraumatic, PERRL, Other (no periorbital or post auricular ecchymosis) - Neck Neck: No bony TTP - Cardiac Cardiac: RRR - Respiratory Respiratory: No respiratory distress, Clear bilaterally - Abdomen Abdomen: Soft, Non tender - Derm Derm: Normal color - Extremities Extremities: No deformity, Normal ROM s pain - Neuro Neuro: No motor deficit, Normal speech (speech is clear but rambling). No: Alert and oriented X 3 Eye Opening: Spontaneous Motor: Obeys Commands Verbal: Confused GCS Score: 14 Results - Vitals Vitals: Vital Signs - 24 hr 10/13/18 10/13/18 10/13/18 07:27 08:16 08:30 Temperature 35.9 C L Heart Rate 96 99 100 Respiratory 16 24 14 Rate Blood Pressure 152/85 H 142/91 H 112/85 H O2 Saturation 100 100 95 10/13/18 10/13/18 10:22 12:06 Temperature 36.3 C L Heart Rate 89 89 Respiratory 27 H 15 Rate Blood Pressure 140/92 H 138/90 H O2 Saturation 97 98 Oxygen O2 Source Room air - EKG (time done) 0730 Rate: Rate (enter#) (93) Rhythm: NSR Ruso: LAD Intervals: Normal WI QRS: Normal Ischemia: Normal ST segments - Labs Labs: Laboratory Tests 10/13/18 10/13/18 10/13/18 07:52 07:52 07:52 WBC 9.8 RBC 4.28 L Hgb 14.5 Hct 42.8 MCV 99.9 H MCH 33.8 H MCHC 33.8 RDW 14.9 Plt Count 248 MPV 7.4 Neut # (Auto) 4.2 Lymph # (Auto) 4.6 H Yancey # (Auto) 0.8 Eos # (Auto) 0.2 Baso # (Auto) 0.0 Absolute Nucleated RBC 0.01 Nucleated RBC % 0.1 PT 11.2 INR 1.0 Sodium 135 Potassium 3.9 Chloride 98 L Carbon Dioxide 23 Anion Gap 14.0 H BUN 27 H Creatinine 1.1 Estimated GFR (MDRD) 65 L Glucose 96 Calcium 9.2 Total Bilirubin 1.4 H AST 20 ALT 13 Alkaline Phosphatase 76 Ammonia Total Creatine Kinase 96 Troponin I Total Protein 7.4 Albumin 4.0 Globulin 3.4 Albumin/Globulin Ratio 1.2 Lipase 36 Urine Color Urine Clarity Urine pH Ur Specific [place] Urine Protein Urine Glucose (UA) Urine Ketones Urine Occult Blood Urine Nitrite Urine Bilirubin Urine Urobilinogen Ur Leukocyte Esterase Ur Microscopic Review Urine Opiates Screen Ur Oxycodone Screen Urine Methadone Screen Ur Propoxyphene Screen Ur Barbiturates Screen Ur Tricyclics Screen Ur Phencyclidine Scrn Ur Amphetamine Screen U Methamphetamines Scrn U Benzodiazepines Scrn Urine Cocaine Screen U Cannabinoids Screen Ethyl Alcohol < 5.0 10/13/18 10/13/18 10/13/18 07:52 07:52 08:25 WBC RBC Hgb Hct MCV MCH MCHC RDW Plt Count MPV Neut # (Auto) Lymph # (Auto) Yancey # (Auto) Eos # (Auto) Baso # (Auto) Absolute Nucleated RBC Nucleated RBC % PT INR Sodium Potassium Chloride Carbon Dioxide Anion Gap BUN Creatinine Estimated GFR (MDRD) Glucose Calcium Total Bilirubin AST ALT Alkaline Phosphatase Ammonia < 10.0 Total Creatine Kinase Troponin I < 0.04 Total Protein Albumin Globulin Albumin/Globulin Ratio Lipase Urine Color DARK YELLOW Urine Clarity CLEAR Urine pH 5.5 Ur Specific [place] >=1.030 H Urine Protein NEGATIVE Urine Glucose (UA) NEGATIVE Urine Ketones 40 H Urine Occult Blood NEGATIVE Urine Nitrite NEGATIVE Urine Bilirubin NEGATIVE Urine Urobilinogen 0.2 (NORMAL) Ur Leukocyte Esterase NEGATIVE Ur Microscopic Review NOT INDICATED Urine Opiates Screen NEGATIVE Ur Oxycodone Screen NEGATIVE Urine Methadone Screen NEGATIVE Ur Propoxyphene Screen NEGATIVE Ur Barbiturates Screen NEGATIVE Ur Tricyclics Screen NEGATIVE Ur Phencyclidine Scrn NEGATIVE Ur Amphetamine Screen NEGATIVE U Methamphetamines Scrn NEGATIVE U Benzodiazepines Scrn POSITIVE H Urine Cocaine Screen NEGATIVE U Cannabinoids Screen NEGATIVE Ethyl Alcohol - Rads (name of study) CTH Radiology: See rad report (no skull fx or ICH) CTCS Radiology: See rad report (no acute C spien fx or sublux, degen changes, emphysema, arteriosclerosis) CXR Radiology: See rad report (COPD, non specific peribronchial markings) PD MEDICAL DECISION MAKING - ED course ED course: much better after ativan per just admitted for EtOH withdrawal now awake alert cooperative and able to safely ambulate will d/w if she feels safe taking him home will dc with PO ativan ( only if he is going to stop drinking though) and pt feel fine going home gave resource booklet Departure - Departure Disposition: 01 Home, Self Care Clinical Impression: Alcohol withdrawal Qualifiers: Complication of substance-induced condition: with unspecified complication Qualified Code(s): F10.239 - Alcohol dependence with withdrawal, unspecified Condition: Good Instructions: ED Withdrawal Alcohol Prescriptions: chlordiazePOXIDE [Librium] 25 mg PO DAILY PRN #10 capsule PRN Reason: withdrawal symptoms
[2018-10-13 08:09] LABS: BASOPHILS % (AUTO) 0.5 %; EOSINOPHILS # (AUTO) 0.2 10^3/uL (0.0-0.7); EOSINOPHILS % (AUTO) 2.4 %; HGB - HEMOGLOBIN 14.5 g/dL (14.0-18.0); LYMPHOCYTES # (AUTO) 4.6 10^3/uL (1.5-3.5); LYMPHOCYTES % (AUTO) 46.9 %; MEAN CORPUSCULAR HEMOGLOBIN 33.8 pg (27.0-31.0); MEAN CORPUSCULAR HGB CONC 33.8 g/dL (32.0-36.0); MEAN CORPUSCULAR VOLUME 99.9 fL (80.0-94.0); MEAN PLATELET VOLUME 7.4 fL (7.4-11.4); MONOCYTES # (AUTO) 0.8 10^3/uL (0.0-1.0); MONOCYTES % (AUTO) 7.7 %; NEUTROPHILS # (AUTO) 4.2 10^3/uL (1.5-6.6); NEUTROPHILS % (AUTO) 42.5 %; PLT - PLATELET COUNT 248 10^3/uL (130-450); RED BLOOD COUNT 4.28 10^6/uL (4.70-6.10); RED CELL DISTRIBUTION WIDTH 14.9 % (12.0-15.0); WHITE BLOOD COUNT 9.8 x10^3/uL (4.8-10.8)
[2018-10-13 08:16] LABS: PT - PROTHROMBIN TIME 11.2 secs (9.9-12.6)
[2018-10-13 08:22] LABS: ALBUMIN/GLOBULIN RATIO 1.2 (1.0-2.2); ALKALINE PHOSPHATASE 76 IU/L (42-121); ALT ALANINE AMINOTRANSFERASE 13 IU/L (10-60); AST ASPARTATE AMINOTRANSFERASE 20 IU/L (10-42); BILIRUBIN,TOTAL 1.4 mg/dL (0.2-1.0); BUN - BLOOD UREA NITROGEN 27 mg/dL (6-20); CALCIUM 9.2 mg/dL (8.5-10.3); CARBON DIOXIDE - CO2 23 mmol/L (21-32); CHLORIDE 98 mmol/L (101-111); CK- CREATINE KINASE 96 IU/L (22-269); CREATININE 1.1 mg/dL (0.6-1.2); GFR - MDRD 65 (>89); GLUCOSE 96 mg/dL (70-100); LIPASE 36 U/L (22-51); SODIUM 135 mmol/L (135-145); TOTAL PROTEIN 7.4 g/dL (6.7-8.2)
--- NOTE | 2018-10-13 08:24 | XRAY Report ---
Reason: chest pain Procedure Date: 10/13/2018 Accession Number: [id number] / [id number] Procedure: XR - Chest 1 View X-Ray CPT Code: 43429 FULL RESULT: EXAM: CHEST RADIOGRAPHY EXAM DATE: 10/13/2018 07:56 AM. CLINICAL HISTORY: Chest pain. COMPARISON: None. TECHNIQUE: 1 view. FINDINGS: Lungs/Pleura: Increased peribronchial interstitial markings bilaterally. No focal alveolar infiltrate. Hyperlucent upper lung sams. Plan hemidiaphragms Mediastinum: Within exam limitations, the cardiomediastinal contour is normal. Other: None. IMPRESSION: 1. COPD 2. Increase interstitial peribronchial markings nonspecific RADIA
--- NOTE | 2018-10-13 08:31 | CT Report ---
Reason: ams fall Procedure Date: 10/13/2018 Accession Number: [id number] / [id number] Procedure: CT - Head W/O CPT Code: FULL RESULT: EXAM: CT HEAD EXAM DATE: 10/13/2018 08:12 AM. CLINICAL HISTORY: Acute change in mental status after head trauma during a fall. COMPARISON: CT HEAD W/O 09/21/2018 8:03 PM. TECHNIQUE: Multiaxial CT images were obtained from the foramen magnum to the vertex. Reformats: Sagittal and coronal. IV contrast: None. In accordance with CT protocol optimization, one or more of the following dose reduction techniques were utilized for this exam: automated exposure control, adjustment of mA and/or KV based on patient size, or use of iterative reconstructive technique. FINDINGS: Parenchyma: No intraparenchymal hemorrhage. No evidence of mass or mass-effect. Hedrick-white differentiation is distinct. No structural anomaly. Extraaxial Spaces: Normal for age. No subdural or epidural collections identified. Ventricles: Normal in size and position. Sinuses and Orbits: Mucous retention cyst or polyp in the left maxillary sinus measuring 9 mm in diameter. The remaining imaged paranasal sinuses, orbits, and mastoids show no significant abnormality. Bones: No evidence of fracture or calvarial defect. Other: Calcifications in the cavernous and supraclinoid internal carotid arteries. IMPRESSION: No acute intracranial abnormality. RADIA
[2018-10-13] MEDS ORDERED: BENZONATATE 100 MG CAPSULE PO STA (08:41)
[2018-10-13] MEDS ORDERED: guaiFENesin/DEXTROMETHORPHAN 10 ML UDC PO STA (08:41)
--- NOTE | 2018-10-13 09:46 | CT Report ---
Reason: ams fall Procedure Date: 10/13/2018 Accession Number: [id number] / [id number] Procedure: CT - Cervical Spine W/O CPT Code: FULL RESULT: EXAM: CT CERVICAL SPINE WITHOUT CONTRAST DATE: 10/13/2018 08:12 AM. HISTORY: Acute change in mental status after trauma during a fall. COMPARISONS: HEAD W/O 09/21/2018 8:03 PM CERVICAL SPINE W/O 10/13/2018 9:02 AM. TECHNIQUE: Thin-section axial images were acquired of the cervical spine without contrast. Post-processing: Coronal and sagittal reformats. Other: None. In accordance with CT protocol optimization, one or more of the following dose reduction techniques were utilized for this exam: automated exposure control, adjustment of mA and/or KV based on patient size, or use of iterative reconstructive technique. FINDINGS: Alignment: Normal cervical lordosis. No vertebral body subluxation. No scoliosis. Bones: Decreased bone mineralization. No fracture. No focal bone lesion. No congenital vertebral anomaly. Interspace Levels/Facets: There is intervertebral disk space narrowing with marginal ossified formation at C4-C5, C5-C6 and C6-C7, greatest at C5-C6. There is facet arthrosis on the right at C2-C3, C3-C4 and C7-T1, and on the left at C3-C4, C4-C5, C5-C6, C6-C7 and C7-T1. Musculature: Normal. No fatty atrophy. Other: Arteriosclerosis involving the aortic arch, superior mediastinal arterial structures, carotid arteries and carotid bulbs. The paravertebral and prevertebral soft tissues are otherwise unremarkable. Centrilobular emphysema involving both upper lobes. IMPRESSION: 1. No acute cervical spine fracture or subluxation. 2. Multilevel cervical spondylosis including degenerative disk disease and facet arthrosis, detailed above. 3. Arteriosclerosis. 4. Upper lobe centrilobular emphysema. RADIA
[2018-10-13 10:01] LABS: MUDS CUTOFF CONCENTRATIONS CUTOFF CONC BELOW:
[2018-10-13 10:04] LABS: GLUCOSE, URINE (UA) NEGATIVE (NEGATIVE); KETONES,URINE (UA) 40 mg/dL (NEGATIVE); LEUKOCYTE ESTERASE, URINE NEGATIVE (NEGATIVE); NITRITE,URINE NEGATIVE (NEGATIVE); OCCULT BLOOD,URINE NEGATIVE (NEGATIVE); PH,URINE 5.5 PH (5.0-7.5); PROTEIN,URINE NEGATIVE (NEGATIVE); UROBILINOGEN,URINE 0.2 (NORMAL) E.U./dL (NORMAL)
[2018-10-13] MEDS ORDERED: chlordiazePOXIDE 25 MG CAPSULE PO STA (10:10)
[2018-10-13 10:11] LABS: BILIRUBIN,URINE NEGATIVE (NEGATIVE); CLARITY,URINE CLEAR (CLEAR); ICTOTEST,URINE NEGATIVE
[2018-10-13 10:15] LABS: AMPHETAMINE SCREEN,URINE NEGATIVE (NEGATIVE); BENZODIAZEPINES SCREEN, URINE POSITIVE (NEGATIVE); COCAINE SCREEN URINE NEGATIVE (NEGATIVE); METHADONE SCREEN, URINE NEGATIVE (NEGATIVE); METHAMPHETAMINES SCREEN, URINE NEGATIVE (NEGATIVE); OPIATE SCREEN, URINE NEGATIVE (NEGATIVE); OXYCODONE SCREEN, URINE NEGATIVE (NEGATIVE); PROPOXYPHENE SCREEN, URINE NEGATIVE (NEGATIVE); TRICYCLIC ANTIDEPRESSANT,URINE NEGATIVE (NEGATIVE)
[2018-10-13 12:07] VITALS: BP 138/90
== END 2018-10-13 12:12 | disposition home or self-care (01) ==
LOC: EDBD → EDUNIT# → ED 07:26
DX: F10.239 Alcohol dependence with withdrawal, unspecified (principal); I10 Essential (primary) hypertension; J44.9 Chronic obstructive pulmonary disease, unspecified; Z87.891 Personal history of nicotine dependence
CPT/HCPCS: 36415; 70450; 71045; 72125; 80053; 81003; 82140; 82550; 83690; 84484; 85025; 85610; 93005; 96365; 96366; 96375; 99284; 99285; A9270; J2060; J3411; 80306; 80320; 81001

== ENCOUNTER → 2018-10-13 | Outpatient (CLI) | payer MEDICARE, OTHER | END | disposition EMS.NT | LOC: EMS 06:40 | PROVIDERS: ATTEND Surgery | DX: R41.0 Disorientation, unspecified (principal) ==

== ENCOUNTER 2018-12-22 15:49 | Outpatient (CLI) | payer MEDICARE, OTHER | END 2018-12-22 15:50 | disposition EMS.NT | LOC: EMS 15:49 | PROVIDERS: ATTEND Surgery | DX: R25.1 Tremor, unspecified (principal) ==

== ENCOUNTER 2019-01-04 21:29 | Outpatient (CLI) | payer MEDICARE, OTHER | END 2019-01-04 21:30 | disposition critical access hospital (66) | LOC: EMS 21:29 | PROVIDERS: ATTEND Surgery | DX: T14.90XA Injury, unspecified, initial encounter (principal); W10.9XXA Fall (on) (from) unspecified stairs and steps, initial encounter; Y93.89 Activity, other specified; Y92.009 Unspecified place in unspecified non-institutional (private) residence as the place of occurrence of the external cause | CPT/HCPCS: A0425; A0429 ==

== ENCOUNTER 2019-01-04 21:55 | Emergency (ER) | payer MEDICARE, OTHER ==
[2019-01-04 22:04] VITALS: BP 153/96
[2019-01-04] MEDS ORDERED: SODIUM CHLORIDE 0.9% 1,000 ML IV ONE (22:06)
[2019-01-04 22:16] LABS: BASOPHILS % (AUTO) 0.5 %; HGB - HEMOGLOBIN 14.5 g/dL (14.0-18.0); LYMPHOCYTES % (AUTO) 79.7 %; MEAN CORPUSCULAR HEMOGLOBIN 35.6 pg (27.0-31.0); MEAN CORPUSCULAR HGB CONC 32.9 g/dL (32.0-36.0); MEAN CORPUSCULAR VOLUME 108.4 fL (80.0-94.0); MEAN PLATELET VOLUME 7.6 fL (7.4-11.4); MONOCYTES % (AUTO) 4.4 %; NEUTROPHILS % (AUTO) 13.4 %; PLT - PLATELET COUNT 218 10^3/uL (130-450); RED BLOOD COUNT 4.07 10^6/uL (4.70-6.10); RED CELL DISTRIBUTION WIDTH 15.3 % (12.0-15.0); WHITE BLOOD COUNT 15.3 x10^3/uL (4.8-10.8)
[2019-01-04 22:18] LABS: ABNORMAL LYMPHS % (MANUAL) 0 %; BAND NEUTROPHILS % (MANUAL) 0 %
[2019-01-04 22:24] LABS: ALBUMIN 3.7 g/dL (3.2-5.5); ALBUMIN/GLOBULIN RATIO 1.2 (1.0-2.2); BILIRUBIN,TOTAL 0.6 mg/dL (0.2-1.0); CALCIUM 8.6 mg/dL (8.5-10.3); CREATININE 0.9 mg/dL (0.6-1.2); MAGNESIUM 1.9 mg/dL (1.7-2.8); TOTAL PROTEIN 6.7 g/dL (6.7-8.2)
[2019-01-04 22:29] LABS: PT - PROTHROMBIN TIME 11.5 secs (9.9-12.6)
[2019-01-04 22:36] LABS: PARTIAL THROMBOPLASTIN TIME 25.1 secs (24.9-33.3)
[2019-01-04 22:42] LABS: BASOPHILS # (MANUAL) 0.2 10^3/uL (0-0.1); BASOPHILS % (MANUAL) 1 %; EOSINOPHILS # (MANUAL) 0.5 10^3/uL (0-0.7); LYMPHOCYTES # (MANUAL) 10.6 10^3/uL (1.5-3.5); LYMPHOCYTES % (MANUAL) 69 %; MONOCYTES # (MANUAL) 0.9 10^3/uL (0.0-1.0); NEUTROPHILS # (MANUAL) 3.2 10^3/uL (1.5-6.6); NEUTROPHILS % (MANUAL) 21 %
[2019-01-04 22:44] LABS: PLATELET ESTIMATE, MANUAL NORMAL (130-450,000) (NORMAL); PLATELET MORPHOLOGY NORMAL APPEARANCE (NORMAL); RBC MORPHOLOGY (MULTIPLE) 2+ MACROCYTOSIS (NORMAL)
[2019-01-04 22:46] LABS: DIFFERENTIAL COMMENT MANUAL DIFFERENTIAL
--- NOTE | 2019-01-05 00:32 | CT Report ---
Reason: fall struck head; altered LOC Procedure Date: 01/04/2019 Accession Number: [id number] / [id number] Procedure: CT - HEAD WO CPT Code: FULL RESULT: EXAM: CT HEAD EXAM DATE: 01/05/2019. CLINICAL HISTORY: Fall struck head; decreased level of consciousness. COMPARISON: HEAD W/O 10/13/2018 7:51 AM. TECHNIQUE: Multiaxial CT images were obtained from the foramen magnum to the vertex. Reformats: Sagittal and coronal. IV contrast: None. In accordance with CT protocol optimization, one or more of the following dose reduction techniques were utilized for this exam: automated exposure control, adjustment of mA and/or KV based on patient size, or use of iterative reconstructive technique. FINDINGS: Parenchyma: No intraparenchymal hemorrhage. No evidence of mass, midline shift, or CT findings of acute infarction. Hedrick-white differentiation is distinct. Diffuse chronic microangiopathic white matter changes are evident. Extraaxial Spaces: Normal for age. No subdural or epidural collections identified. Ventricles: The ventricles and cortical sulci are enlarged, consistent with age-related tissue loss. Sinuses and orbits: Imaged paranasal sinuses, orbits, and mastoids show no significant abnormality. Bones: No evidence of fracture or calvarial defect. Other: None. IMPRESSION: Generalized age-related cortical atrophic changes without evidence of acute intracranial abnormality. RADIA
--- NOTE | 2019-01-05 00:42 | CT Report ---
Reason: fall and struck head; altered LOC Procedure Date: 01/04/2019 Accession Number: [id number] / [id number] Procedure: CT - CERVICAL SPINE WO CPT Code: FULL RESULT: EXAM: CT CERVICAL SPINE WITHOUT CONTRAST DATE: 01/04/2019 11:40 PM. HISTORY: Fall and struck head; decreased level of consciousness. COMPARISONS: CERVICAL SPINE W/O 10/13/2018 9:02 AM. TECHNIQUE: Thin-section axial images were acquired of the cervical spine without contrast. Post-processing: Coronal and sagittal reformats. Other: None. In accordance with CT protocol optimization, one or more of the following dose reduction techniques were utilized for this exam: automated exposure control, adjustment of mA and/or KV based on patient size, or use of iterative reconstructive technique. FINDINGS: Alignment: No scoliosis or spondylolisthesis. Bones: No fracture or bone lesion. Interspace Levels/Facets: No evidence of significant central canal stenosis. Musculature: Normal. No fatty atrophy. Other: The paravertebral and prevertebral soft tissues are unremarkable. Emphysema. IMPRESSION: No evidence of cervical spine fracture. RADIA
--- NOTE | 2019-01-05 03:12 | ED Physician Documentation ---
PD HPI Fall - Stated complaint Stated Complaint: FELL DOWN STAIRS, EMS, ETOH - Chief complaint Chief Complaint: General - History obtained from History obtained from: Patient, Family, EMS - History of Present Illness Mechanism of injury: Tripped Fall distance: Standing position Where injury occurred: Home Timing - onset: How many minutes ago (30) Injury(ies) location: Face, Left Hand. No: Chest, Abdomen Associated symptoms: AMS (Slurring of speech and ataxic movement but consistent with intoxication as well.). No: LOC Contributing factors: Intoxicated (EMS reports that his says he drinks regularly and too much. The patient does not feel that he drinks too much.). No: Anticoagulated Similar symptoms before: Diagnosis (alcoholism with falls when intoxicated per EMS.) Review of Systems Unable to obtain: Intoxicated Constitutional: denies: Fever Throat: denies: Oral lesions / sores Cardiac: denies: Chest pain / pressure, Palpitations GI: denies: Abdominal Pain, Vomiting, Diarrhea Neurologic: denies: Focal weakness, Numbness, Altered mental status, Headache PD PAST MEDICAL HISTORY - Past Medical History Cardiovascular: Hypertension, Valve disorder Respiratory: COPD, Other Neuro: None Endocrine/Autoimmune: None GI: None : Other HEENT: None Psych: Depression, Anxiety Musculoskeletal: Osteoarthritis Derm: Other - Past Surgical History Past Surgical History: Yes General: Colonoscopy Ortho: Arthroscopic surgery, Other HEENT: Tonsil/Adenoidectomy Derm: Skin cancer surgery - Present Medications Home Medications: Ambulatory Orders Medication Instructions Recorded Confirmed chlordiazePOXIDE [Librium] 25 mg PO DAILY PRN #10 capsule 10/13/18 - Allergies Allergies/Adverse Reactions: Allergies Allergy/AdvReac Type Severity Reaction Status Date / Time Jerricaos Allergy Emesis Uncoded 01/04/19 22:05 - Living Situation Living Situation: reports: With spouse/s.o. Living Arrangement: reports: At home - Social History Does the pt smoke?: Yes Smoking Status: Current every day smoker Does the pt drink ETOH?: Yes Does the pt have substance abuse?: No - Family History Family history: reports: Non contributory - Immunizations Immunizations are current?: Yes - POLST Patient has POLST: No POLST Status: Full Code PD ED PE NORMAL - Vitals Vital signs reviewed: Yes - General General: No acute distress, Well developed/nourished - HEENT HEENT: PERRL, EOMI, Moist mucous membranes, Pharynx benign, Dentition benign, Other (right parietal area with abrasion, no lac. ) - Neck Neck: Supple, no meningeal sign, No bony TTP, No adenopathy - Cardiac Cardiac: RRR, No murmur - Respiratory Respiratory: Clear bilaterally - Abdomen Abdomen: Soft, Non tender - Back Back: No CVA TTP, No spinal TTP - Derm Derm: Normal color, Warm and dry - Extremities Extremities: Normal ROM s pain, No edema, No calf tenderness / cord, Other (left dorsal hand with peeled skin superficially. No bony deformity nor tenderness. 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 ) - Neuro Neuro: Alert and oriented X 3, No motor deficit, No sensory deficit, Normal speech Eye Opening: Spontaneous Motor: Obeys Commands Verbal: Oriented GCS Score: 15 Results - Vitals Vitals: Vital Signs - 24 hr 01/04/19 01/05/19 21:57 03:35 Temperature 36.3 C L Heart Rate 88 76 Respiratory 12 18 Rate Blood Pressure 153/96 H O2 Saturation 98 100 Oxygen O2 Source Room air - Labs Labs: Laboratory Tests 01/04/19 01/04/19 01/04/19 22:00 22:00 22:00 WBC 15.3 H RBC 4.07 L Hgb 14.5 Hct 44.1 MCV 108.4 H MCH 35.6 H MCHC 32.9 RDW 15.3 H Plt Count 218 MPV 7.6 Neut # (Auto) Not Reportable Lymph # (Auto) Not Reportable [place] # (Auto) Not Reportable Eos # (Auto) Not Reportable Baso # (Auto) Not Reportable Absolute Nucleated RBC Not Reportable Total Counted 100 Band Neuts % (Manual) 0 Abnorm Lymph % (Manual) 0 Nucleated RBC % Not Reportable Neutrophils # (Manual) 3.2 Lymphocytes # (Manual) 10.6 H Monocytes # (Manual) 0.9 Eosinophils # (Manual) 0.5 Basophils # (Manual) 0.2 H Differential Comment MANUAL DIFFERENTIAL Manual Slide Review Indicated WBC Morphology 2+ SMUDGE CELLS Platelet Estimate NORMAL (130-450,000) Platelet Morphology NORMAL APPEARANCE RBC Morph Micro Appear 2+ MACROCYTOSIS PT 11.5 INR 1.0 APTT 25.1 Sodium 134 L Potassium 4.2 Chloride 96 L Carbon Dioxide 27 Anion Gap 11.0 BUN 15 Creatinine 0.9 Estimated GFR (MDRD) 82 L Glucose 97 Calcium 8.6 Magnesium 1.9 Total Bilirubin 0.6 AST 68 H ALT 45 Alkaline Phosphatase 66 Troponin I Total Protein 6.7 Albumin 3.7 Globulin 3.0 Albumin/Globulin Ratio 1.2 Lipase 45 Ethyl Alcohol 273.8 Slides for Path Review Indicated 01/04/19 22:00 WBC RBC Hgb Hct MCV MCH MCHC RDW Plt Count MPV Neut # (Auto) Lymph # (Auto) [place] # (Auto) Eos # (Auto) Baso # (Auto) Absolute Nucleated RBC Total Counted Band Neuts % (Manual) Abnorm Lymph % (Manual) Nucleated RBC % Neutrophils # (Manual) Lymphocytes # (Manual) Monocytes # (Manual) Eosinophils # (Manual) Basophils # (Manual) Differential Comment Manual Slide Review WBC Morphology Platelet Estimate Platelet Morphology RBC Morph Micro Appear PT INR APTT Sodium Potassium Chloride Carbon Dioxide Anion Gap BUN Creatinine Estimated GFR (MDRD) Glucose Calcium Magnesium Total Bilirubin AST ALT Alkaline Phosphatase Troponin I < 0.04 Total Protein Albumin Globulin Albumin/Globulin Ratio Lipase Ethyl Alcohol Slides for Path Review - Rads (name of study) head and neck CT Radiology: Prelim report reviewed (no acute process. ), EMP read contemporaneously, See rad report PD MEDICAL DECISION MAKING - ED course Complexity details: considered differential (He is subsequently ambulatory in the department with good at gait and no ataxia. He wishes to go home. He took a taxi home.), d/w patient Departure - Departure Disposition: 01 Home, Self Care Clinical Impression: Accidental fall Qualifiers: Encounter type: initial encounter Qualified Code(s): W19.XXXA - Unspecified fall, initial encounter Altered mental status, unspecified Qualifiers: Altered mental status type: stupor Qualified Code(s): R40.1 - Stupor Alcohol intoxication Qualifiers: Complication of substance-induced condition: uncomplicated Qualified Code(s): F10.920 - Alcohol use, unspecified with intoxication, uncomplicated Scalp abrasion Qualifiers: Encounter type: initial encounter Qualified Code(s): S00.01XA - Abrasion of scalp, initial encounter Avulsion of skin of hand Qualifiers: Encounter type: initial encounter Laterality: left Qualified Code(s): S61.402A - Unspecified open wound of left hand, initial encounter Condition: Stable Record reviewed to determine appropriate education?: Yes Instructions: ED Alcohol Intoxication, ED Avulsion Dermal Follow-Up: Terese Garrett MD [Primary Care Provider] - Comments: Follow-up with your primary care and seek medical help to stop excess drinking. Alcoholism is not defined by whether you think you have a problem but by whether others do and whether it causes problems in your life, like falling down due to excess intoxication as tonight. So you should consider stopping drinking for the sake of your health and for your . For the skin injuries, clean them with soap and water once or twice daily and apply ointment appearing bandage to protect them. Recheck if not healed over the next week or 2. Recheck if signs of infection. Discharge Date/Time: 01/05/19 03:36
== END 2019-01-05 03:36 | disposition home or self-care (01) ==
LOC: EDUNIT# → ED 21:55
DX: R40.1 Stupor (principal); S00.01XA Abrasion of scalp, initial encounter; S61.402A Unspecified open wound of left hand, initial encounter; W10.9XXA Fall (on) (from) unspecified stairs and steps, initial encounter; Y92.009 Unspecified place in unspecified non-institutional (private) residence as the place of occurrence of the external cause; F10.220 Alcohol dependence with intoxication, uncomplicated; I10 Essential (primary) hypertension; F17.200 Nicotine dependence, unspecified, uncomplicated; D75.89 Other specified diseases of blood and blood-forming organs; I44.4 Left anterior fascicular block
CPT/HCPCS: 36415; 70450; 72125; 80053; 80320; 83690; 83735; 84484; 85025; 85610; 85730; 93005; 96360; 96361; 99283; 99284

== ENCOUNTER 2019-01-26 08:28 | Outpatient (CLI) | payer MEDICARE, OTHER | END 2019-01-26 08:29 | disposition EMS.NT | LOC: EMS 08:28 | PROVIDERS: ATTEND Surgery | DX: Z03.89 Encounter for observation for other suspected diseases and conditions ruled out (principal) ==

== ENCOUNTER 2019-02-24 20:08 | Outpatient (CLI) | payer MEDICARE, OTHER | END 2019-02-24 20:09 | disposition EMS.NT | LOC: EMS 20:08 | PROVIDERS: ATTEND Surgery | DX: R46.89 Other symptoms and signs involving appearance and behavior (principal) ==

== ENCOUNTER 2019-02-27 18:07 | Outpatient (CLI) | payer MEDICARE, OTHER | END 2019-02-27 18:08 | disposition critical access hospital (66) | LOC: EMS 18:07 | PROVIDERS: ATTEND Surgery | DX: R46.89 Other symptoms and signs involving appearance and behavior (principal) | CPT/HCPCS: A0425; A0429 ==

== ENCOUNTER 2019-02-27 18:29 | Emergency (ER) | payer MEDICARE, OTHER ==
--- NOTE | 2019-02-27 18:58 | ED Physician Documentation ---
History of Present Illness - Stated complaint Stated Complaint: MHE - Chief complaint Chief Complaint: MHE - History obtained from History obtained from: Patient - History of Present Illness Timing: Prior to arrival - Additonal information Additional information: Patient is a 73-year-old male with history of depression and significant alcohol use with withdrawal symptoms per chart review presenting "wanting to talk to someone".Patient reports that his of many years left him several days ago with some of their belongings. This is a significant stress to the patient and he contacted several friends who were not able to speak to him to his liking. Patient then called 911 and EMS recommended he come to the ER. Patient denies being homicidal or suicidal, as well as experiencing hallucinations or paranoia. Patient does admit to drinking alcohol, specifically 3 glasses of red wine before 6 PM daily, but denies having an issue with alcohol, alcohol withdrawal, or usage of other recreational substances. Patient reports that he attempted to see a psychologist, but felt that her facilities were not ADA compliant and therefore refused to see her again. [facility] and has [facility] evaluation scheduled for March 10, 2019.At this time, patient is unwilling to speak to mental health providers that are not related to [facility]. He otherwise denies other medical complaints. No other improving or worsening factors noted. Review of Systems Constitutional: denies: Fever Respiratory: denies: Dyspnea GI: denies: Vomiting Psychiatric: denies: Suicidal, Homicidal, Hallucinations, Delusions PD PAST MEDICAL HISTORY - Past Medical History Past Medical History: No Cardiovascular: Hypertension, Valve disorder Respiratory: COPD, Other Neuro: None Endocrine/Autoimmune: None GI: None : Other HEENT: None Psych: Depression, Anxiety Musculoskeletal: Osteoarthritis Derm: Other - Past Surgical History Past Surgical History: Yes General: Colonoscopy Ortho: Arthroscopic surgery, Other HEENT: Tonsil/Adenoidectomy Derm: Skin cancer surgery - Present Medications Home Medications: Ambulatory Orders Medication Instructions Recorded Confirmed Lorazepam [Ativan] 1 mg PO DAILY 02/27/19 02/27/19 - Allergies Allergies/Adverse Reactions: Allergies Allergy/AdvReac Type Severity Reaction Status Date / Time [place] Allergy Emesis Uncoded 02/27/19 18:41 - Social History Does the pt smoke?: Yes Smoking Status: Current every day smoker Does the pt drink ETOH?: Yes ETOH Use: Wine Does the pt have substance abuse?: No - Immunizations Immunizations are current?: Yes - POLST Patient has POLST: No POLST Status: Full Code PD ED PE NORMAL - Vitals Vital signs reviewed: Yes - General General: Alert and oriented X 3, No acute distress, Well developed/nourished, Other (Smells of alcohol) - HEENT HEENT: Atraumatic, PERRL, EOMI (Gross visual acuity intact. No nystagmus.) - Cardiac Cardiac: RRR, No murmur - Respiratory Respiratory: No respiratory distress, Clear bilaterally - Abdomen Abdomen: Normal bowel sounds, Soft, Non tender, Non distended - Derm Derm: Normal color, Warm and dry, No rash - Extremities Extremities: No deformity, No tenderness to palpate - Neuro Neuro: Alert and oriented X 3, No motor deficit, No sensory deficit - Psych Psych: Normal mood, Normal affect (Denies SI, HI, hallucinations, paranoia.) Results - Vitals Vitals: Vital Signs - 24 hr 02/27/19 02/27/19 18:33 20:33 Temperature 36.7 C 36.7 C Heart Rate 95 103 H Respiratory 18 16 Rate Blood Pressure 147/95 H 144/88 H O2 Saturation 96 94 Oxygen O2 Source Room air - Labs Labs: Laboratory Tests 02/27/19 02/27/19 02/27/19 19:20 19:20 19:20 WBC 10.5 RBC 3.75 L Hgb 13.4 L Hct 39.8 L MCV 106.0 H MCH 35.8 H MCHC 33.8 RDW 14.5 Plt Count 225 MPV 7.9 Neut # (Auto) Not Reportable Lymph # (Auto) Not Reportable [place] # (Auto) Not Reportable Eos # (Auto) Not Reportable Baso # (Auto) Not Reportable Absolute Nucleated RBC Not Reportable Total Counted 100 Band Neuts % (Manual) 0 Abnorm Lymph % (Manual) 26 Nucleated RBC % Not Reportable Neutrophils # (Manual) 1.8 Lymphocytes # (Manual) 7.9 H Monocytes # (Manual) 0.7 Eosinophils # (Manual) 0.1 Basophils # (Manual) 0.0 Differential Comment MANUAL DIFFERENTIAL Platelet Estimate NORMAL (130-450,000) Platelet Morphology NORMAL APPEARANCE RBC Morph Micro Appear 1+ ANISOCYTOSIS Sodium 139 Potassium 4.3 Chloride 100 L Carbon Dioxide 26 Anion Gap 13.0 BUN 15 Creatinine 0.9 Estimated GFR (MDRD) 82 L Glucose 95 Calcium 8.8 Total Bilirubin 1.0 AST 34 ALT 23 Alkaline Phosphatase 86 Total Protein 6.8 Albumin 3.9 Globulin 2.9 Albumin/Globulin Ratio 1.3 Lipase 38 TSH 1.86 Salicylates < 6.0 Acetaminophen < 10 L Ethyl Alcohol 32.3 PD MEDICAL DECISION MAKING - ED course Complexity details: reviewed old records, reviewed results, re-evaluated patient, considered differential, d/w patient ED course: Patient is requesting to speak with someone and upon offer of mental health evaluation, he declines as he only wants to be seen by the [facility]. Do plan to obtain screening lab work and urinalysis and will contact [facility] for further recommendations. However, do not feel the patient requires involuntary hold or emergent transfer for psychiatric issues as he is not responding to internal stimuli, hallucinating, paranoid, suicidal, homicidal. Patient is likely experiencing depression symptoms that can be further evaluated on an outpatient basis. Patient is also likely continue to use alcohol and feels to recognize his alcohol use issues. Medical work-up is relatively unremarkable and physical exam benign. Patient declines to provide urinalysis. After further time in the ED, patient requests discharge and again do not feel that he is a risk to himself or others.Feel that he is safe to discharge home and emphasized need to follow-up as scheduled with mental health providers at the [facility], as well as given instructions on strict return precautions, avoidance of alcohol and substances, other supportive cares. Friend is able to provide ride home. Departure - Departure Disposition: 01 Home, Self Care Clinical Impression: Alcohol use, Anxiety attack Condition: Good Instructions: ED Stress React, ED Alcohol Abuse Follow-Up: your,doctor [Other] - Within 3 Days Comments: Please continue home medications as previously instructed. Recommend avoidance of alcohol and other recreational drugs. Please contact your primary care physician and establish follow-up in next 2 to 3 days. Also, please follow-up as scheduled for mental health evaluation in early March. Return to ED sooner if experience worsening symptoms or other concerns including signs of depression, anxiety, hallucinations, paranoia, homicidal thoughts, suicidal thoughts, or other. Discharge Date/Time: 02/27/19 20:34
[2019-02-27 19:29] LABS: BASOPHILS % (AUTO) 0.4 %; EOSINOPHILS % (AUTO) 2.8 %; HGB - HEMOGLOBIN 13.4 g/dL (14.0-18.0); LYMPHOCYTES % (AUTO) 70.8 %; MEAN CORPUSCULAR HEMOGLOBIN 35.8 pg (27.0-31.0); MEAN CORPUSCULAR HGB CONC 33.8 g/dL (32.0-36.0); MEAN PLATELET VOLUME 7.9 fL (7.4-11.4); MONOCYTES % (AUTO) 6.4 %; NEUTROPHILS % (AUTO) 19.6 %; PLT - PLATELET COUNT 225 10^3/uL (130-450); RED BLOOD COUNT 3.75 10^6/uL (4.70-6.10); RED CELL DISTRIBUTION WIDTH 14.5 % (12.0-15.0); WHITE BLOOD COUNT 10.5 x10^3/uL (4.8-10.8)
[2019-02-27 19:37] LABS: BAND NEUTROPHILS % (MANUAL) 0 %
[2019-02-27 19:45] LABS: ACETAMINOPHEN < 10 ug/mL (10-30); ALBUMIN 3.9 g/dL (3.2-5.5); ALBUMIN/GLOBULIN RATIO 1.3 (1.0-2.2); ALKALINE PHOSPHATASE 86 IU/L (42-121); ALT ALANINE AMINOTRANSFERASE 23 IU/L (10-60); AST ASPARTATE AMINOTRANSFERASE 34 IU/L (10-42); BUN - BLOOD UREA NITROGEN 15 mg/dL (6-20); CALCIUM 8.8 mg/dL (8.5-10.3); CARBON DIOXIDE - CO2 26 mmol/L (21-32); CHLORIDE 100 mmol/L (101-111); CREATININE 0.9 mg/dL (0.6-1.2); GFR - MDRD 82 (>89); GLUCOSE 95 mg/dL (70-100); LIPASE 38 U/L (22-51); SALICYLATE < 6.0 mg/dL; SODIUM 139 mmol/L (135-145); TOTAL PROTEIN 6.8 g/dL (6.7-8.2)
[2019-02-27 20:18] LABS: ABNORMAL LYMPHS % (MANUAL) 26 %; EOSINOPHILS # (MANUAL) 0.1 10^3/uL (0-0.7); LYMPHOCYTES # (MANUAL) 7.9 10^3/uL (1.5-3.5); LYMPHOCYTES % (MANUAL) 49 %; MONOCYTES # (MANUAL) 0.7 10^3/uL (0.0-1.0); NEUTROPHILS # (MANUAL) 1.8 10^3/uL (1.5-6.6); NEUTROPHILS % (MANUAL) 17 %
[2019-02-27 20:19] LABS: DIFFERENTIAL COMMENT MANUAL DIFFERENTIAL; PLATELET ESTIMATE, MANUAL NORMAL (130-450,000) (NORMAL); PLATELET MORPHOLOGY NORMAL APPEARANCE (NORMAL); RBC MORPHOLOGY (MULTIPLE) 1+ ANISOCYTOSIS (NORMAL)
[2019-02-27 20:34] VITALS: BP 144/88
== END 2019-02-27 20:34 | disposition home or self-care (01) ==
LOC: ED 18:29
DX: F10.99 Alcohol use, unspecified with unspecified alcohol-induced disorder (principal); F41.9 Anxiety disorder, unspecified; I10 Essential (primary) hypertension; F17.200 Nicotine dependence, unspecified, uncomplicated
CPT/HCPCS: 36415; 80053; 80307; 80320; 80329; 83690; 84443; 85025; 99283; 99284

== ENCOUNTER 2019-05-15 13:41 | Emergency (ER) | payer MEDICARE, OTHER ==
[2019-05-15 13:51] VITALS: BP 134/84
--- NOTE | 2019-05-15 14:00 | ED Physician Documentation ---
History of Present Illness - Stated complaint Stated Complaint: SORE THROAT,FEVER, - Chief complaint Chief Complaint: Heent - History obtained from History obtained from: Patient - Additonal information Additional information: Patient is a 73-year-old male presenting with several days of sore throat. Patient denies any known sick contacts. Patient reports throat pain and productive cough, although productive cough is of phlegm and is chronic for him. No shortness of breath. Patient also reports subjective fever and chills, but denies ear complaints, nasal complaints, or other concerns. No other improving or worsening factors noted. Review of Systems Constitutional: reports: Fever, Chills Throat: reports: Sore throat Respiratory: reports: Cough. denies: Dyspnea PD PAST MEDICAL HISTORY - Past Medical History Past Medical History: Yes Cardiovascular: Hypertension, Valve disorder Respiratory: COPD, Other Neuro: None Endocrine/Autoimmune: None GI: None : Other HEENT: None Psych: Depression, Anxiety Musculoskeletal: Osteoarthritis Derm: Other - Past Surgical History Past Surgical History: Yes General: Colonoscopy Ortho: Arthroscopic surgery, Other HEENT: Tonsil/Adenoidectomy Derm: Skin cancer surgery - Present Medications Home Medications: Ambulatory Orders Medication Instructions Recorded Confirmed Lorazepam [Ativan] 1 mg PO DAILY 02/27/19 02/27/19 Penicillin V Potassium 500 mg PO BID 10 Days tablet 05/15/19 - Allergies Allergies/Adverse Reactions: Allergies Allergy/AdvReac Type Severity Reaction Status Date / Time [place] Allergy Emesis Uncoded 05/15/19 13:57 - Social History Does the pt smoke?: Yes Smoking Status: Current every day smoker Does the pt drink ETOH?: Yes Does the pt have substance abuse?: No - Immunizations Immunizations are current?: Yes - POLST Patient has POLST: No POLST Status: Full Code PD ED PE NORMAL - Vitals Vital signs reviewed: Yes - General General: Alert and oriented X 3, No acute distress, Well developed/nourished - HEENT HEENT: Atraumatic, Moist mucous membranes, Dentition benign. No: Pharynx benign (Diffuse pharyngeal erythema and swelling. No uvulitis or uvular deviation. No exudate.) - Neck Neck: Supple, no meningeal sign - Cardiac Cardiac: RRR, No murmur - Respiratory Respiratory: No respiratory distress, Clear bilaterally - Derm Derm: Normal color, Warm and dry, No rash - Extremities Extremities: No deformity, No tenderness to palpate - Neuro Neuro: Alert and oriented X 3, No motor deficit, No sensory deficit - Psych Psych: Normal mood, Normal affect Results - Vitals Vitals: Vital Signs - 24 hr 05/15/19 13:49 Temperature 37.2 C Heart Rate 100 Respiratory 18 Rate Blood Pressure 134/84 H O2 Saturation 95 Oxygen O2 Source Room air PD MEDICAL DECISION MAKING - ED course Complexity details: considered differential, d/w patient ED course: Patient presenting with pharyngeal changes of swelling and erythema although no exudate present. Patient also reports subjective fever and other infectious complaints. Do not find evidence of peritonsillar abscess or have concern for otitis changes, mastoiditis, retropharyngeal abscess, sinusitis, pneumonia. Patient does not appear septic or to be suffering from a systemic illness at this time. Discussed viral versus pectoral etiologies with patient and patient requesting antibiotics and feel this is appropriate. Discussed use of such, supportive cares, return precautions, appropriate follow-up. Patient voiced understanding and is comfortable with discharge plan. Departure - Departure Disposition: 01 Home, Self Care Clinical Impression: Pharyngitis Qualifiers: Pharyngitis/tonsillitis etiology: unspecified etiology Qualified Code(s): J02.9 - Acute pharyngitis, unspecified Condition: Good Instructions: ED Strep Pharyngitis Poss, ED Pharyngitis Viral Follow-Up: Manjit Hampton MD [Primary Care Provider] - Within 3 Days Prescriptions: Penicillin V Potassium 500 mg PO BID 10 Days tablet Comments: Please continue any home medications as previously instructed. May take penicillin for possible bacterial infection of throat. Also recommend [id number]-[id number] intervention such as ibuprofen, Tylenol, saltwater gargles. Follow-up with primary care physician in next 2 to 3 days and return to ED sooner if experience worsening symptoms or have other concerns.
== END 2019-05-15 14:26 | disposition home or self-care (01) ==
LOC: ED 13:41
DX: J02.9 Acute pharyngitis, unspecified (principal); I10 Essential (primary) hypertension; F17.200 Nicotine dependence, unspecified, uncomplicated
CPT/HCPCS: 99282; 99284

== ENCOUNTER 2019-08-10 22:48 | Outpatient (CLI) | payer MEDICARE, OTHER | END 2019-08-10 22:49 | disposition critical access hospital (66) | LOC: EMS 22:48 | PROVIDERS: ATTEND Surgery | DX: S01.01XA Laceration without foreign body of scalp, initial encounter (principal); W01.190A Fall on same level from slipping, tripping and stumbling with subsequent striking against furniture, initial encounter; Y92.009 Unspecified place in unspecified non-institutional (private) residence as the place of occurrence of the external cause ==

== ENCOUNTER 2019-08-10 23:05 | Emergency (ER) | payer MEDICARE, OTHER ==
--- NOTE | 2019-08-10 23:35 | ED Physician Documentation ---
PD HPI Fall - Stated complaint Stated Complaint: FALL/HEAD LAC - Chief complaint Chief Complaint: Laceration - History obtained from History obtained from: Patient, EMS - History of Present Illness Mechanism of injury: Lost balance Fall distance: Standing position Where injury occurred: Home Timing - onset: How many minutes ago (approximately 45 minutes [employer]) Injury(ies) location: Head Pain level now: 0 Associated symptoms: No: LOC, AMS, Amnesia, Neck pain, Weakness Contributing factors: No: Anticoagulated, Intoxicated Recently seen: Not recently seen - Additional information Additional information: BIBA. patient fell while walking at home, lost balance and sustained scalp laceration when his head his a sharp metallic edge on wall corner Review of Systems Eyes: reports: Reviewed and negative Cardiac: reports: Reviewed and negative Respiratory: reports: Reviewed and negative GI: reports: Reviewed and negative Skin: reports: Laceration (s) Musculoskeletal: reports: Reviewed and negative Neurologic: reports: Head injury. denies: Generalized weakness, Focal weakness, Numbness, Headache, LOC PD PAST MEDICAL HISTORY - Past Medical History Cardiovascular: Hypertension, Valve disorder Respiratory: COPD, Other Neuro: None Endocrine/Autoimmune: None GI: None : Other HEENT: None Psych: Depression, Anxiety Musculoskeletal: Osteoarthritis Derm: Other - Past Surgical History Past Surgical History: Yes General: Colonoscopy Ortho: Arthroscopic surgery, Other HEENT: Tonsil/Adenoidectomy Derm: Skin cancer surgery - Present Medications Home Medications: Ambulatory Orders Medication Instructions Recorded Confirmed Lorazepam [Ativan] 1 mg PO DAILY 02/27/19 02/27/19 Penicillin V Potassium 500 mg PO BID 10 Days tablet 05/15/19 - Allergies Allergies/Adverse Reactions: Allergies Allergy/AdvReac Type Severity Reaction Status Date / Time [place] Allergy Emesis Uncoded 05/15/19 13:57 - Social History Does the pt smoke?: Yes Smoking Status: Current every day smoker Does the pt drink ETOH?: Yes Does the pt have substance abuse?: No - Immunizations Immunizations are current?: Yes - POLST Patient has POLST: No POLST Status: Full Code PD ED PE NORMAL - Vitals Vital signs reviewed: Yes - General General: Alert and oriented X 3, No acute distress, Well developed/nourished - HEENT HEENT: PERRL, EOMI - Neck Neck: No bony TTP - Cardiac Cardiac: RRR, No murmur - Respiratory Respiratory: No respiratory distress, Clear bilaterally PD ED PE EXPANDED - HEENT HEENT Visual: 1 - laceration (5 cm) Results - Vitals Vitals: Oxygen O2 Source Room air - Rads (name of study) CT head Radiology: Prelim report reviewed, See rad report Procedures - Laceration (location) Scalp Length in cm: 5 Wound type: Linear, Into subcut fat, Clean Neurovascular status: Sensory intact, Motor intact, Vascular intact Anesthesia: Lidocaine 1% with epi Wound Preparation: Chlorhexadine Skin layer closure: Britta PD MEDICAL DECISION MAKING - ED course Complexity details: reviewed results, re-evaluated patient, considered differential, d/w patient Departure - Departure Disposition: 01 Home, Self Care Clinical Impression: Fall, Laceration of head Instructions: ED Laceration Scalp Stitch Or Stap Follow-Up: Manjit Hampton MD [Primary Care Provider] - Comments: Follow up with your doctor in 7-10 days for removal of the britta Discharge Date/Time: 08/11/19 01:40
[2019-08-10] MEDS ORDERED: LIDOCAINE 1%-EPI 1:100000 20 ML MDV SUBQ STA (23:54)
--- NOTE | 2019-08-11 01:15 | CT Report ---
Reason: head injury Procedure Date: 08/11/2019 Accession Number: [id number] / [id number] Procedure: CT - HEAD WO CPT Code: Final Report FULL RESULT: EXAM: CT HEAD EXAM DATE: 08/11/2019 12:42 AM. CLINICAL HISTORY: Head injury. COMPARISON: HEAD W/O 01/04/2019 11:29 PM. TECHNIQUE: Multiaxial CT images were obtained from the foramen magnum to the vertex. Reformats: Sagittal and coronal. IV contrast: None. In accordance with CT protocol optimization, one or more of the following dose reduction techniques were utilized for this exam: automated exposure control, adjustment of mA and/or KV based on patient size, or use of iterative reconstructive technique. FINDINGS: Parenchyma: No intraparenchymal hemorrhage. No evidence of mass, midline shift or CT findings of acute territorial infarction. Hedrick-white differentiation is distinct. Deep white matter low attenuation likely reflects chronic micro-angiopathic ischemic change. Extraaxial Spaces: No subdural or epidural collections identified. Ventricles: No hydrocephalus Sinuses: Imaged paranasal sinuses, orbits, and mastoids show no significant abnormality. Bones: No evidence of acute fracture or calvarial defect. Other: Calcification of the cavernous carotids. IMPRESSION: No acute intracranial abnormalities. RADIA
[2019-08-11] MEDS ORDERED: BACITRACIN ZINC OINT 14 GM TOP STA (01:25)
[2019-08-11 01:41] VITALS: BP 144/87
== END 2019-08-11 01:40 | disposition home or self-care (01) ==
LOC: EDBD → EDUNIT# → ED 23:05
DX: S01.01XA Laceration without foreign body of scalp, initial encounter (principal); W01.118A Fall on same level from slipping, tripping and stumbling with subsequent striking against other sharp object, initial encounter; Y93.01 Activity, walking, marching and hiking; Y92.009 Unspecified place in unspecified non-institutional (private) residence as the place of occurrence of the external cause; I10 Essential (primary) hypertension; F17.200 Nicotine dependence, unspecified, uncomplicated
CPT/HCPCS: 12002; 70450; 99282; 99284; A9270

== ENCOUNTER 2020-06-08 21:41 | Outpatient (CLI) | payer MEDICARE, OTHER | END 2020-06-08 21:42 | disposition critical access hospital (66) | LOC: EMS 21:41 | PROVIDERS: ATTEND Surgery | DX: R46.89 Other symptoms and signs involving appearance and behavior (principal); Z72.89 Other problems related to lifestyle | CPT/HCPCS: A0425; A0429 ==

== ENCOUNTER 2020-06-08 21:59 | Emergency (ER) | payer MEDICARE, OTHER ==
--- NOTE | 2020-06-08 23:23 | ED Physician Documentation ---
PD HPI MHE - Stated complaint Stated Complaint: SI - Chief complaint Chief Complaint: MHE - History obtained from History obtained from: Patient - History of Present Illness Primary symptom: Aggressive behavior Timing - onset: Other (tonight) Recently seen: Emergency Dept (1.5 months ago) - Additional information Additional information: RIP at request of police. per police report, patients called 911 because she felt patient was acting in a threatening and aggressive manner with her tonight. patient tells me he was watching TV and having a glass of wine and does not know why she called 911. is not in ED at this time Review of Systems Cardiac: reports: Reviewed and negative Respiratory: reports: Reviewed and negative GI: reports: Reviewed and negative Neurologic: denies: Headache, Head injury Psychiatric: reports: Reviewed and negative PD PAST MEDICAL HISTORY - Past Medical History Past Medical History: Yes Cardiovascular: Hypertension, Valve disorder Respiratory: COPD, Other Neuro: Dementia Endocrine/Autoimmune: None GI: None : Other HEENT: None Psych: Depression, Anxiety Musculoskeletal: Osteoarthritis Derm: Other - Past Surgical History Past Surgical History: Yes General: Colonoscopy Ortho: Arthroscopic surgery, Other HEENT: Tonsil/Adenoidectomy Derm: Skin cancer surgery - Present Medications Home Medications: Ambulatory Orders Medication Instructions Recorded Confirmed Lorazepam [Ativan] 1 mg PO DAILY 02/27/19 02/27/19 - Allergies Allergies/Adverse Reactions: Allergies Allergy/AdvReac Type Severity Reaction Status Date / Time Jalapenos Allergy Emesis Uncoded 06/08/20 22:03 - Social History Does the pt smoke?: No Smoking Status: Never smoker Does the pt drink ETOH?: Yes Does the pt have substance abuse?: No - Immunizations Immunizations are current?: Yes - POLST Patient has POLST: No POLST Status: Full Code PD ED PE NORMAL - Vitals Vital signs reviewed: Yes - General General: No acute distress, Well developed/nourished - HEENT HEENT: Atraumatic, PERRL, EOMI - Cardiac Cardiac: RRR - Respiratory Respiratory: No respiratory distress, Clear bilaterally - Abdomen Abdomen: Soft, Non tender - Neuro Neuro: roustabout crew leader 2-12 intact, No motor deficit, No sensory deficit, Normal speech Eye Opening: Spontaneous Motor: Obeys Commands Verbal: Oriented GCS Score: 15 - Psych Psych: Normal affect PD ED PE EXPANDED - General General: Alert, Other (oriented x 2 (says month is August; given another try, he says May. then says year is 2006). he is otherwise conversant and appropriate, calm, pleasant, polite) Results - Vitals Vitals: Oxygen O2 Source Room air - Labs Labs: Laboratory Tests 06/08/20 06/08/20 06/08/20 22:55 23:50 23:50 WBC 9.9 RBC 4.31 L Hgb 15.1 Hct 45.2 MCV 104.9 H MCH 35.0 H MCHC 33.4 RDW 13.0 Plt Count 197 MPV 9.7 Neut # (Auto) 2.0 Lymph # (Auto) 6.8 H [place] # (Auto) 0.6 Eos # (Auto) 0.3 Baso # (Auto) 0.0 Absolute Nucleated RBC 0.00 Band Neuts % (Manual) Not Reportable Abnorm Lymph % (Manual) Not Reportable Nucleated RBC % 0.0 Neutrophils # (Manual) Not Reportable Lymphocytes # (Manual) Not Reportable Monocytes # (Manual) Not Reportable Eosinophils # (Manual) Not Reportable Basophils # (Manual) Not Reportable Differential Comment MANUAL=AUTO DIFF Platelet Estimate NORMAL (130-450,000) RBC Morph Micro Appear NORMAL APPEARANCE Sodium 137 Potassium 4.3 Chloride 100 L Carbon Dioxide 25 Anion Gap 12.0 BUN 27 H Creatinine 0.9 Estimated GFR (MDRD) 82 L Glucose 94 Calcium 9.3 Total Bilirubin 0.8 AST 34 ALT 30 Alkaline Phosphatase 58 Total Protein 7.5 Albumin 4.5 Globulin 3.0 Albumin/Globulin Ratio 1.5 Lipase 56 H TSH Salicylates < 6.0 Urine Opiates Screen NEGATIVE Ur Oxycodone Screen NEGATIVE Urine Methadone Screen NEGATIVE Ur Propoxyphene Screen NEGATIVE Acetaminophen < 10 L Ur Barbiturates Screen NEGATIVE Ur Tricyclics Screen NEGATIVE Ur Phencyclidine Scrn NEGATIVE Ur Amphetamine Screen NEGATIVE U Methamphetamines Scrn NEGATIVE U Benzodiazepines Scrn NEGATIVE Urine Cocaine Screen NEGATIVE U Cannabinoids Screen NEGATIVE Ethyl Alcohol 56.3 06/08/20 23:50 WBC RBC Hgb Hct MCV MCH MCHC RDW Plt Count MPV Neut # (Auto) Lymph # (Auto) [place] # (Auto) Eos # (Auto) Baso # (Auto) Absolute Nucleated RBC Band Neuts % (Manual) Abnorm Lymph % (Manual) Nucleated RBC % Neutrophils # (Manual) Lymphocytes # (Manual) Monocytes # (Manual) Eosinophils # (Manual) Basophils # (Manual) Differential Comment Platelet Estimate RBC Morph Micro Appear Sodium Potassium Chloride Carbon Dioxide Anion Gap BUN Creatinine Estimated GFR (MDRD) Glucose Calcium Total Bilirubin AST ALT Alkaline Phosphatase Total Protein Albumin Globulin Albumin/Globulin Ratio Lipase TSH 2.11 Salicylates Urine Opiates Screen Ur Oxycodone Screen Urine Methadone Screen Ur Propoxyphene Screen Acetaminophen Ur Barbiturates Screen Ur Tricyclics Screen Ur Phencyclidine Scrn Ur Amphetamine Screen U Methamphetamines Scrn U Benzodiazepines Scrn Urine Cocaine Screen U Cannabinoids Screen Ethyl Alcohol PD MEDICAL DECISION MAKING - ED course Complexity details: reviewed old records, reviewed results, re-evaluated patient, considered differential, d/w patient, d/w family ED course: held overnight in ED pending SW consult to assess safety of home situation. In AM, I discussed the case with the social media intern. Immediately afterwards, and before SW had chance to assess patient, I was told patients had come to desk requesting discharge to her care. I d/w patients and she firmly requests his discharge and that she is comfortable taking him home. She says her chief concern is that he pushed/shoved her last night and he had never made this physical contact with her before. I explained that the social media intern would be in to evaluate the situation within the next few minutes, but patients declines this and reiterates that she wants to take him home and is comfortable with doing so. Patient has been stating his desire to be discharged for entire stay, although he has been calm, polite, and accepting of my explanations regarding holding him until SW evaluation. Departure - Departure Disposition: 01 Home, Self Care Clinical Impression: Alcohol use Condition: Good Instructions: ED Stress React Follow-Up: Manjit Hampton MD [Primary Care Provider] - Discharge Date/Time: 06/09/20 09:15
[2020-06-08 23:47] LABS: MUDS CUTOFF CONCENTRATIONS CUTOFF CONC BELOW:
[2020-06-08 23:59] LABS: AMPHETAMINE SCREEN,URINE NEGATIVE (NEGATIVE); BENZODIAZEPINES SCREEN, URINE NEGATIVE (NEGATIVE); COCAINE SCREEN URINE NEGATIVE (NEGATIVE); METHADONE SCREEN, URINE NEGATIVE (NEGATIVE); METHAMPHETAMINES SCREEN, URINE NEGATIVE (NEGATIVE); OPIATE SCREEN, URINE NEGATIVE (NEGATIVE); OXYCODONE SCREEN, URINE NEGATIVE (NEGATIVE); PROPOXYPHENE SCREEN, URINE NEGATIVE (NEGATIVE); TRICYCLIC ANTIDEPRESSANT,URINE NEGATIVE (NEGATIVE)
[2020-06-09 00:20] LABS: BASOPHILS % (AUTO) 0.4 %; EOSINOPHILS # (AUTO) 0.3 10^3/uL (0.0-0.7); EOSINOPHILS % (AUTO) 3.3 %; HGB - HEMOGLOBIN 15.1 g/dL (14.0-18.0); LYMPHOCYTES # (AUTO) 6.8 10^3/uL (1.5-3.5); LYMPHOCYTES % (AUTO) 69.1 %; MEAN CORPUSCULAR HGB CONC 33.4 g/dL (32.0-36.0); MEAN CORPUSCULAR VOLUME 104.9 fL (80.0-94.0); MEAN PLATELET VOLUME 9.7 fL (7.4-11.4); MONOCYTES # (AUTO) 0.6 10^3/uL (0.0-1.0); MONOCYTES % (AUTO) 6.5 %; NEUTROPHILS % (AUTO) 20.5 %; PLT - PLATELET COUNT 197 10^3/uL (130-450); RED BLOOD COUNT 4.31 10^6/uL (4.70-6.10); WHITE BLOOD COUNT 9.9 x10^3/uL (4.8-10.8)
[2020-06-09 00:32] LABS: ACETAMINOPHEN < 10 ug/mL (10-30); ALBUMIN 4.5 g/dL (3.2-5.5); ALBUMIN/GLOBULIN RATIO 1.5 (1.0-2.2); ALKALINE PHOSPHATASE 58 IU/L (42-121); ALT ALANINE AMINOTRANSFERASE 30 IU/L (10-60); AST ASPARTATE AMINOTRANSFERASE 34 IU/L (10-42); BILIRUBIN,TOTAL 0.8 mg/dL (0.2-1.0); BUN - BLOOD UREA NITROGEN 27 mg/dL (6-20); CALCIUM 9.3 mg/dL (8.5-10.3); CARBON DIOXIDE - CO2 25 mmol/L (21-32); CHLORIDE 100 mmol/L (101-111); CREATININE 0.9 mg/dL (0.6-1.2); GLUCOSE 94 mg/dL (70-100); LIPASE 56 U/L (22-51); SALICYLATE < 6.0 mg/dL; SODIUM 137 mmol/L (135-145); TOTAL PROTEIN 7.5 g/dL (6.7-8.2)
[2020-06-09 01:02] LABS: DIFFERENTIAL COMMENT MANUAL=AUTO DIFF; PLATELET ESTIMATE, MANUAL NORMAL (130-450,000) (NORMAL); RBC MORPHOLOGY (MULTIPLE) NORMAL APPEARANCE (NORMAL)
[2020-06-09] MEDS ORDERED: LORazepam 0.5 MG TABLET PO STA (01:23)
[2020-06-09 09:29] VITALS: BP 136/87
== END 2020-06-09 09:15 | disposition home or self-care (01) ==
LOC: EDUNIT# → ED 21:59
DX: F10.94 Alcohol use, unspecified with alcohol-induced mood disorder (principal); F03.90 Unspecified dementia, unspecified severity, without behavioral disturbance, psychotic disturbance, mood disturbance, and anxiety; I10 Essential (primary) hypertension
CPT/HCPCS: 36415; 80053; 83690; 84443; 85025; 99283; A9270; 80306; 80307; 80320; 80329

== ENCOUNTER 2020-12-27 15:31 | Outpatient (CLI) | payer MEDICARE, OTHER ==
--- NOTE | 2020-12-27 17:20 | XRAY Report ---
PROCEDURE: Chest 2 View X-Ray INDICATIONS: VASOVAGAL SYNCOPE TECHNIQUE: 2 view(s) of the chest. COMPARISON: Chest x-ray 10/13/2018 FINDINGS: Surgical changes and devices: None. Lungs and pleura: No pleural effusions or pneumothorax. Lungs are clear. Mediastinum: Mediastinal contours are normal. Heart size is normal. Bones and chest wall: No suspicious bony abnormalities. Soft tissues appear unremarkable. IMPRESSION: No acute pulmonary process. Reviewed by: Diana Monroy MD on 12/27/2020 5:19 PM PDT Approved by: Diana Monroy MD on 12/27/2020 5:19 PM PDT Station ID: [id number]
--- NOTE | 2020-12-28 12:31 | Ultrasound Report ---
PROCEDURE: Carotid Doppler Complete INDICATIONS: VASOVAGAL SYNCOPE TECHNIQUE: Color and pulse Doppler interrogation was performed of both carotid systems, with image documentation and velocity measurements. COMPARISON: None. FINDINGS: Right side: Brachial blood pressure: 159/85 mm Hg. Common carotid artery peak systolic velocity: 79 cm/sec. Internal carotid artery peak systolic velocity: 72 cm/sec. Internal carotid artery end diastolic velocity: 19 cm/sec. External carotid artery peak systolic velocity: 72 cm/sec. ICA/CCA peak systolic ratio: 0.9 . Hedrick scale imaging description: Moderate calcific and soft plaque Percent internal carotid artery stenosis: Less than 50% stenosis . Vertebral artery: Flow direction is antegrade. Left side: Brachial blood pressure: 156/85 mm Hg. Common carotid artery peak systolic velocity: 64 cm/sec. Internal carotid artery peak systolic velocity: 53 cm/sec. Internal carotid artery end diastolic velocity: 20 cm/sec. External carotid artery peak systolic velocity: 69 cm/sec. ICA/CCA peak systolic ratio: 0.8 . Hedrick scale imaging description: Moderate soft plaque, mild calcific plaque Percent internal carotid artery stenosis: Less than 50% stenosis . Vertebral artery: Flow direction is antegrade. IMPRESSION: Less than 50% stenosis at each internal carotid artery bilaterally. Mild to moderate calcific and sof t plaque greater on the right than the left, with vertebral arterial flow antegrade in direction. Tor tuous vascularity, which generally is considered related to chronic hypertension. The estimate of stenosis included in the report of the imaging study was calculated using the NASCET method Reviewed by: Tez Roberts MD on 12/28/2020 12:29 PM PDT Approved by: Tez Roberts MD on 12/28/2020 12:29 PM PDT Station ID: [id number]
== END 2020-12-27 15:32 | disposition home or self-care (01) ==
LOC: DI 15:31
PROVIDERS: ATTEND Family Medicine
DX: R55 Syncope and collapse (principal); R41.81 Age-related cognitive decline; R05 Cough
CPT/HCPCS: 93880

== ENCOUNTER 2023-09-15 17:02 | Emergency (ER) | payer MEDICARE, OTHER ==
[2023-09-15 17:36] VITALS: O2SAT 100
--- NOTE | 2023-09-15 18:26 | ED Physician Documentation ---
History of Present Illness - Stated complaint Stated Complaint: R ARM SWELLING/RASH - Chief complaint Chief Complaint: Ext Problem - History obtained from History obtained from: Patient - Additonal information Additional information: At the end of July he was visiting in [place] and had an NSTEMI with CHF and ended up getting 2 stents and a TAVR. He has been home since on a stable medication regimen but over the last day or so has developed itching and swelling of both arms with a rash. He is not short of breath. Has no chest pain. Has no pedal edema. PD PAST MEDICAL HISTORY - Past Medical History Cardiovascular: Hypertension, Valve disorder Respiratory: COPD, Other Neuro: Dementia Endocrine/Autoimmune: None GI: None : Other HEENT: None Psych: Depression, Anxiety Musculoskeletal: Osteoarthritis Derm: Other - Past Surgical History Past Surgical History: Yes General: Colonoscopy Ortho: Arthroscopic surgery, Other Cardiovascular: Coronary stent, Valve replacement, Cardiac catheterization HEENT: Tonsil/Adenoidectomy Derm: Skin cancer surgery - Present Medications Home Medications: Ambulatory Orders Medication Instructions Recorded Confirmed Lorazepam [Ativan] 1 mg PO DAILY 02/27/19 02/27/19 Triamcinolone 0.1% Oint 1 applic TOP BID #160 gm 09/15/23 - Allergies Allergies/Adverse Reactions: Allergies Allergy/AdvReac Type Severity Reaction Status Date / Time J[place] Allergy Emesis Uncoded 06/08/20 22:03 - Social History Does the pt smoke?: No Smoking Status: Never smoker Does the pt drink ETOH?: Yes Does the pt have substance abuse?: No - Immunizations Immunizations are current?: Yes - POLST Patient has POLST: No POLST Status: Full Code PD ED PE NORMAL - Vitals Vital signs reviewed: Yes - General General: Alert and oriented X 3, No acute distress - Respiratory Respiratory: No respiratory distress, Clear bilaterally - Extremities Extremities: Other (There is mild edema of both arms around the wrists with some redness and scaling. Good radial pulses. No pedal edema.) - Neuro Neuro: Alert and oriented X 3, Normal speech - Psych Psych: Normal mood, Normal affect Results - Vitals Vitals: Vital Signs - 24 hr 09/15/23 17:32 Temperature 36.2 C L Heart Rate 73 Respiratory 18 Rate Blood Pressure 99/68 O2 Saturation 100 Oxygen O2 Source Room air PD Medical Decision Making - ED course ED course: I reviewed his medication list, they thought it might be one of his medications but none are new and none would be really consistent with causing an edematous allergic reaction in the arms only. Will start on topical steroids pending follow-up. Departure - Departure Disposition: 01 Home, Self Care Clinical Impression: Rash and nonspecific skin eruption Condition: Good Record reviewed to determine appropriate education?: Yes Prescriptions: Triamcinolone 0.1% Oint 1 applic TOP BID #160 gm Comments: None of your medications look like they would necessarily cause this issue. I do want you to follow-up with your primary care physician, next available appointment. Return for new or worsening symptoms. I am prescribing a cream that you can use on the areas of swelling and redness that I think will be helpful.
[2023-09-15 18:49] VITALS: BP 137/71
== END 2023-09-15 18:41 | disposition home or self-care (01) ==
LOC: ED 17:02
DX: R21 Rash and other nonspecific skin eruption (principal); I10 Essential (primary) hypertension; F03.90 Unspecified dementia, unspecified severity, without behavioral disturbance, psychotic disturbance, mood disturbance, and anxiety
CPT/HCPCS: 99282

== ENCOUNTER 2023-11-01 15:05 | Emergency (ER) | payer MEDICARE, OTHER ==
[2023-11-01] MEDS ORDERED: IPRATROPIUM/ALBUTEROL 3 ML NEB INH STA (15:27)
[2023-11-01] MEDS ORDERED: CETIRIZINE 10 MG TABLET PO STA (15:27)
[2023-11-01] MEDS ORDERED: dexAMETHasone 4 MG TABLET PO STA (15:27)
--- NOTE | 2023-11-01 15:39 | ED Physician Documentation ---
PD HPI SKIN - Stated complaint Stated Complaint: ITCHING ALL OVER - Chief complaint Chief Complaint: Allergic Rx - History obtained from History obtained from: Patient - History of Present Illness Quality / character: Itchy, Discolored (some redness and pebbly rash diffusely, initially on arms but progressed to whole body.) Improved by: No: Steroid cream Associated symptoms: Other (He has Chronic dyspnea with COPD and uses inhalers and nebulizer at home, or more exactly has them at home but states he only occasionally uses them. Is being evaluated by primary care for home oxygen. Has had increased cough and wheezing the past week or 2.). No: Fever, Myalgias Contributing factors: Exposed to medication (He had chest pain and heart failure while out of town in July and had a TAVR and cardiac stents with several new medications prescribed. He had not had any rash or itching with those, but itching started about 1 1/2 months later.). No: Exposed to soap / lotion, Recent illness Recently seen: Emergency Dept (He was seen in the emergency department 6 weeks ago for the same symptoms. Prescribed triamcinolone topically. He states moderate improvement with it to just mild symptoms which have increased again in the past 1-1/2 weeks. Never fully resolved.) PD PAST MEDICAL HISTORY - Past Medical History Past Medical History: Yes Cardiovascular: Hypertension, Valve disorder Respiratory: COPD, Other Neuro: Dementia Endocrine/Autoimmune: None GI: None : Other HEENT: None Psych: Depression, Anxiety Musculoskeletal: Osteoarthritis Derm: Other - Past Surgical History Past Surgical History: Yes General: Colonoscopy Ortho: Arthroscopic surgery, Other Cardiovascular: Coronary stent, Valve replacement, Cardiac catheterization HEENT: Tonsil/Adenoidectomy Derm: Skin cancer surgery - Present Medications Home Medications: Ambulatory Orders Medication Instructions Recorded Confirmed Triamcinolone 0.1% Oint 1 applic TOP BID #160 gm 09/15/23 11/01/23 Albuterol Sulfate [Proair 1 inh INH PRN PRN 11/01/23 11/01/23 Digihaler] Aspirin [Vazalore] 1 cap PO DAILY 11/01/23 11/01/23 Atorvastatin Calcium [Lipitor] 1 tab PO DAILY 11/01/23 11/01/23 Cetirizine [ZyrTEC] 10 mg PO DAILY #40 tablet 11/01/23 Clopidogrel [Plavix] 1 tab PO DAILY 11/01/23 11/01/23 Empagliflozin [Jardiance] 1 tab PO DAILY 11/01/23 11/01/23 Isosorbide Dinitrate [Isordil] 1 tab PO DAILY 11/01/23 11/01/23 Losartan Potassium 1 tab PO DAILY 11/01/23 11/01/23 Melatonin 1 tab PO DAILY 11/01/23 11/01/23 Metoprolol Tartrate [Lopressor] 1 tab PO DAILY 11/01/23 11/01/23 Tamsulosin [Flomax] 1 tab PO DAILY 11/01/23 11/01/23 dexAMETHasone [Decadron] 4 mg PO DAILY #6 tablet 11/01/23 - Allergies Allergies/Adverse Reactions: Allergies Allergy/AdvReac Type Severity Reaction Status Date / Time Vaishali Allergy Emesis Uncoded 11/01/23 15:08 - Social History Does the pt smoke?: No Smoking Status: Never smoker Does the pt drink ETOH?: Yes Does the pt have substance abuse?: No - Immunizations Immunizations are current?: Yes - POLST Patient has POLST: No POLST Status: Full Code PD ED PE NORMAL - Vitals Vital signs reviewed: Yes - General General: Alert and oriented X 3, No acute distress, Well developed/nourished - HEENT HEENT: Pharynx benign (no edema) - Neck Neck: Supple, no meningeal sign, No adenopathy - Cardiac Cardiac: RRR, Other (murmu noted left chest. ) - Respiratory Respiratory: No: Clear bilaterally (no coarse sounds no fine crackles, no leg edema. Does have diffuse moderate expiratory wheezing. No accessory muscle use. ) - Derm Derm: Other (Diffuse pebbly rash with some thickening of dorsal skin of arms c/w scratching long tem. ) - Extremities Extremities: No edema, No calf tenderness / cord - Neuro Neuro: Alert and oriented X 3, No motor deficit, Normal speech Results - Vitals Vitals: Vital Signs - 24 hr 11/01/23 15:09 Temperature 36.8 C Heart Rate 71 Respiratory 16 Rate Blood Pressure 134/60 H O2 Saturation 92 Oxygen O2 Source Room air PD Medical Decision Making - ED course Complexity details: considered differential, d/w patient ED course: 78-year-old gentleman with some dementia and poor memory of short-term events with the history provided mainly by his . He has had itchy pruritus for abo ut 7 or 8 weeks and seen 6 weeks ago for this. Persists with symptoms to some degree but worsened again the last 1-1/2 weeks. Has been using topical steroid cream. No oral medications for it. He is on several medications subsequent to heart cath with stents and TAVR. No obvious home environmental allergens. We can try some steroids orally as well as antihistamines. See what effect he has from that. Consideration if not fully improved or if recurring would be to look at more home environmental stimulants versus food allergies but also to consider potential medications. Regarding his breathing, I did encourage that he use his inhaler or nebulizer 3- 4 times daily on a regular basis. His was present for this and states she does try to get him to do that but he gets stubborn at times. Departure - Departure Disposition: 01 Home, Self Care Clinical Impression: Chronic dyspnea, Acute urticaria Condition: Stable Record reviewed to determine appropriate education?: Yes Instructions: ED Allergic Reaction General Other Follow-Up: [facility] [Provider Group] Prescriptions: dexAMETHasone [Decadron] 4 mg PO DAILY #6 tablet Cetirizine [ZyrTEC] 10 mg PO DAILY #40 tablet Comments: I would suggest taking the dexamethasone steroid daily for the next 6 days. Combine it with cetirizine antihistamine twice daily for the first week and then daily for another couple of weeks. Continue with your current usual medicines. Regarding your breathing, I would suggest using your inhaler or nebulizer 3-4 times daily for the next week as well. There could be some element of the allergic reaction enhancing your shortness of breath and wheezing. I sent your prescriptions to your preferred pharmacy. If your rash and itching are having difficulty resolving completely or if it does resolve and then returns fairly soon in the near future, then consideration would need to be towards an ongoing allergen. Medications are commonly thought of his potential for that. Follow-up with your primary care if not fully resolved or recurring to discuss changing or stopping one of your medicines. On your medicine list, the ones that could be more common for allergy would be the aspirin or clopidogrel. However any medication or food or environmental irritant can be causing this. Forms: PCP List
[2023-11-01 16:03] VITALS: BP 130/65; O2SAT 94
== END 2023-11-01 16:00 | disposition home or self-care (01) ==
LOC: ED 15:05
DX: R06.09 Other forms of dyspnea (principal); L50.9 Urticaria, unspecified; I10 Essential (primary) hypertension
CPT/HCPCS: 94640; 99283; 99284; A9270; J8540

== ENCOUNTER 2023-12-29 12:26 | Outpatient (CLI) | payer OTHER ==
--- NOTE | 2023-12-29 15:01 | CT Report ---
PROCEDURE: Head WO INDICATIONS: DEMENTIA TECHNIQUE: Noncontrast 4.5 mm thick angled axial sections acquired from the foramen magnum to the vertex. For r adiation dose reduction, the following was used: automated exposure control, adjustment of mA and/or kV according to patient size. COMPARISON: 05/02/2020. FINDINGS: Image quality: Excellent. CSF spaces: Basal cisterns are patent. No extra-axial fluid collections. Ventricles are normal in size and shape. Brain: No midline shift. No intracranial masses or hemorrhage. Hedrick-white Age-related global volum e loss and chronic microvascular ischemic changes. Intracranial atherosclerotic vascular calcificatio ns. matter interface is normal. Skull and face: Calvarium and visualized facial bones are intact, without suspicious lesions. Bilate ral lens replacement. Sinuses: Visualized sinuses and mastoids are clear. IMPRESSION: 1.No acute intracranial pathology. 2.Age-related global volume loss and chronic microvascular ischemic changes. Reviewed by: Matthew Swan MD on 12/29/2023 2:59 PM PDT Approved by: Matthew Swan MD on 12/29/2023 2:59 PM PDT Station ID: [id number]
== END 2023-12-29 12:27 | disposition home or self-care (01) ==
LOC: DI 12:26
PROVIDERS: ATTEND Family Medicine
DX: F03.90 Unspecified dementia, unspecified severity, without behavioral disturbance, psychotic disturbance, mood disturbance, and anxiety (principal)